=== PATIENT | female | born 1985 | race American Indian/Alaskan Native ===

== ENCOUNTER 2020-07-14 10:40 | Inpatient (IN) | payer MEDICAID ==
[2020-07-14] MEDS ORDERED: MAGNESIUM SULFATE 4 GM/100 ML BAG IV SCH (12:30)
[2020-07-14] MEDS ORDERED: ACETAMINOPHEN 325 MG TAB PO PRN (12:38)
--- NOTE | 2020-07-14 12:46 | History and Physical Report ---
History of Present Illness Date of examination: 07/14/20 (Sent from office.) Date of admission: 07/14/2020 Chief complaint: Was sent from office d/t oligo History of present illness: Pt was admitted to [facility] on 07/09 d/t elevated blood pressures. She was given steroids (dose #1 on 07/09 and #2 on 07/10), magnesium infusion and then transferred to [facility]. Received a call from Dr. Can at [facility] on 07/11 regarding the patient being discharged from their facility. She was transferred there d/t her blood pressures being elevated. Dr. Can is recommending BPP's to start at 32 weeks, and growth scans with dopplers every 3 weeks d/t IUGR. At today's office visit her BEN was noted to be 4.6 so she was sent to the hospital for observation. EDC Confirmation: 09/05/2020 Gestational Age: 32.4 weeks Past History : 3 Term Births: 0 Premature Births: 0 Living Children: 0 Para: 0 Mult. Births: 0 Prev : 0 Prev. attempt? 0 Aborta: 2 Elect. Ab: 2 Spont. Ab: 0 Ectopics: 0 # 1 Delivery date: 2005 Delivery type: EAB Comments: D&C # 2 Delivery date: 2013 Delivery type: EAB Comments: medical Risk Factors: Smoked Tobacco Use: Never smoker Smokeless Tobacco Use: Never Passive smoke exposure: no HIV high-risk behavior: no Caffeine use: 0 drinks per day Alcohol use: no Exercise: yes Times per week: 2 Type of Exercise: walking Seatbelt use: preg-camp head counselor % Dietary Counseling: pn yes PAP Smear History: Date of Last PAP Smear: 01/23/2020 Results: normal Past Medical History: Reviewed history from 01/20/2018 and no changes required: Hypertension - Labetalol since 100 mg BID Past Surgical History: Reviewed history from 01/20/2018 and no changes required: Sebaceous cyst removed from Head (2012) benign x2 Family History Summary: Brother - Has Family History of Diabetes - Entered On: 04/29/2020 Father - Has Family History of CVA or Stroke - Entered On: 04/29/2020 General Comments - FH: Paternal aunt leukemia Social History: Reviewed history from 01/20/2018 and no changes required: Patient is single Smoking History: Patient has never smoked. Past Medical History Abnormal PAP: negative SUMANTH Exposure: negative Infertility: negative Uterine Anomaly: negative Uterine Surgery (not C/S): negative Other Gynecologic Problems: negative Social Hx: Patient is single Smoking History: Patient has never smoked. Infection History Hx of STD: gonorrhea HIV Risk Eval: no Hepatitis B Risk Eval: low risk Personal hx. of genital herpes: yes Rash, Viral, or Febrile illness since last LMP? no Varicella/Chicken Pox Status: Previous Disease TB Risk: no Genetic History Congenital Heart Defect: Mom: no Dad: no Carlitos Disease: Mom: no Dad: no Thalassemia Mom: no Dad: no Neural Tube Defect Mom: no Dad: no Down's Syndrome Mom: no Dad: no Ismael-Sachs Mom: no Dad: no Sickle Cell Disease/Trait Mom: no Dad: no Hemophilia Mom: no Dad: no Muscular Dystrophy Mom: no Dad: no Cystic Fibrosis Mom: no Dad: no Wright Chorea Mom: no Dad: no Mental Retardation Mom: no Dad: no Fragile X Mom: no Dad: no Other Genetic/Chromosomal Disorder Mom: no Dad: no Child w/other defect Mom: no Dad: no Enviromental Exposures Enviromental Exposures Reviewed Xray Exposure: no Medication, drug, or alcohol use since LMP: no Chemical/Other Exposure: no Exposure to Cat Liter: no Hx of Parvovirus (Fifth Disease): no Occupational Exposure to Children: none Comments: personal care worker Current Allergies (reviewed today): No known allergies Past History Past Medical History: hypertension Past Surgical History: other (Sebaceous cyst reomved X2 benign) Family/Genetic History: cancer Social history: no significant social history - Obstetrical History Expected Date of Delivery: 09/05/20 Actual Gestation: 32 Week(s) 4 Day(s) : 3 Para: 0 Hx # Term Pregnancies: 0 Number of Pregnancies: 0 Spontaneous Abortions: 0 Induced : 2 Number of Living Children: 0 Medications and Allergies Allergies Allergy/AdvReac Type Severity Reaction Status Date / Time No Known Allergies Allergy Verified 07/14/20 11:47 Home Medications Medication Instructions Recorded Confirmed Last Taken Type Aspirin [Adult Aspirin] 81 mg PO DAILY 07/14/20 07/14/20 07/11/20 09:00 History Labetalol HCl [Labetalol 300mg TAB] 300 mg PO BID 02/07/14/20 07/14/20 10:45 History One Daily Tablet 1 tab PO DAILY 07/14/20 07/14/20 07/14/20 08:30 History Procardia Xl 60 mg PO DAILY 07/14/20 07/14/20 07/14/20 10:45 History Active Meds: Active Medications Acetaminophen (Acetaminophen 325 Mg Tab) 1,000 mg PO Q6H PRN PRN Reason: Pain MILD(1-3)/Fever >100.5/VELAZQUEZ Al Hydrox/Mg Hydrox/Simethicone (Alum-Mag Hydroxide-Simethicone 452-528-18oy/5ml Oral Liqd 30 Ml) 30 ml PO Q6H PRN PRN Reason: Indigestion Betamethasone Acet/Betameth SodPhos (Betamet Acet/Betamet Na Ph 6 Mg/Ml Inj 5 Ml Mdv) 12 mg IM Q24H HUMA Stop: 07/15/20 13:01 Calcium Gluconate (Calcium Gluconate 1000 Mg/10 Ml Inj) 1,000 mg IV ONCE PRN PRN Reason: magnesium toxicity Diphenhydramine HCl (Diphenhydramine 25 Mg Cap) 25 mg PO Q6H PRN PRN Reason: Itching Docusate Sodium (Docusate Sodium 100 Mg Cap) 100 mg PO Q12H PRN PRN Reason: Constipation Lactated Ringer's (Lactated Ringers) 1,000 mls @ 125 mls/hr IV DIRECT HUMA Magnesium Sulfate (Magnesium Sulfate 4gm/100ml) 4 gm in 100 mls @ 300 mls/hr IV ONCE HUMA Stop: 07/14/20 14:00 Magnesium Sulfate (Magnesium Sulfate 40gm/1000ml) 40 gm in 1,000 mls @ 50 mls/hr IV DIRECT HUMA Multivitamins/Iron/Calcium ( [id number]-[id number] Fumarate-Folic Acid Vit Tab) 1 each PO QDAY HUMA Review of Systems All systems: negative - Vital Signs Vital signs: Vital Signs Pulse BP 83 158/107 07/14/20 11:34 07/14/20 11:34 Temp Pulse Resp BP Pulse Ox 97.9 F 84 20 148/96 99 07/14/20 11:47 07/14/20 12:40 07/14/20 11:47 07/14/20 12:33 07/14/20 12:40 Pt denies VELAZQUEZ, blurred vision, spots before her eyes, chest pain, shortness of b reath, upper abdominal pain, ctxs, LOF, and vaginal bleeding. - Physical Exam Breasts: Positive: deferred Cardiovascular: Regular rate Lungs: Positive: Clear to auscultation Abdomen: Positive: normal appearance, soft Uterus: Positive: normal size, normal contour Extremities: Positive: edema Deep Tendon Reflex Grade: Normal +2 - Obstetrical FHR: category 1 Uterine Contraction Monitor Mode: External Uterine Contraction Pattern: Absent Uterine Tone Measurement Phase: Resting (+1 edema to lower extremities) Results Result Diagrams: 07/14/20 13:46 07/14/20 13:46 GBS UNKNOWN Records reviewed from previous OBGYN on 01/2020: O negative, antibody screen negative HIV non reactive Hep B negative VDRL non reactive Rubella immune Assessment and Plan A: 35 y.o. @ 32.4 wks with IUGR, pre eclampsia, and oligohydramnios. - Patient Problems (1) Intrauterine growth restriction (IUGR) affecting care of mother, third trimester, single gestation Current Visit: Yes Status: Acute Plan to address problem: Continuously observe status. BPP ordered for 07/15. (2) Oligohydramnios in third trimester Onset Date: ~07/15/20 Current Visit: Yes Status: Acute Qualifiers: Fetus number: single or unspecified fetus Qualified Code(s): O41.03X0 - Oligohydramnios, third trimester, not applicable or unspecified Plan to address problem: Full BEN ordered for 07/15. (3) Pre-eclampsia affecting , antepartum Onset Date: ~07/09/20 Current Visit: Yes Status: Acute Plan to address problem: Admit to labor and delivery. 24 hour urine ordered. Labetalol 300mg BID. Procardia 60 mg XL daily. BPP ordered for 07/15. Pre eclampsia labs ordered on admission. (4) with 32 completed weeks gestation Current Visit: Yes Status: Acute Plan to address problem: Continuous EFM to monitor status.
[2020-07-14] MEDS ORDERED: MAGNESIUM SULFATE 40GM/1000ML 40 GM/1,000 ML BAG IV SCH (13:00)
[2020-07-14] MEDS ORDERED: CALCIUM GLUCONATE 1000 MG/10 ML INJ IV PRN (13:00)
[2020-07-14] MEDS ORDERED: ACETAMINOPHEN 500 MG TAB PO PRN (13:00)
[2020-07-14] MEDS ORDERED: ALUM-MAG HYDROXIDE-SIMETHICONE 200-200-20MG/5ML ORAL LIQD 30 ML PO PRN (13:00)
[2020-07-14] MEDS ORDERED: BETAMET ACET/BETAMET NA PH 6 MG/ML INJ 5 ML MDV IM SCH (13:00)
[2020-07-14] MEDS ORDERED: LACTATED RINGERS 1,000 ML IV SCH (13:00)
[2020-07-14] MEDS ORDERED: diphenhydrAMINE 25 MG CAP PO PRN (13:00)
[2020-07-14 13:42] LABS: Bilirubin,Urine NEG (Negative); Blood,Urine NEG (Negative); Color,Urine Yellow (Yellow); Mucus,Urine FEW /HPF; Protein,Urine <15 mg/dL mg/dL (Negative); Urobilinogen,Urine < 2.0 mg/dL (<2.0); WBC,Urine < 1.0 /HPF (0.0-6.0)
[2020-07-14 14:28] LABS: Hematocrit 35.2 % (30.3-42.9); Hemoglobin 11.7 gm/dl (10.1-14.3); Mean Corpuscular HGB Conc 33 % (30-34); Mean Corpuscular Volume 80 fl (79-97); Platelet Count 175 K/mm3 (140-440); Red Blood Count 4.42 M/mm3 (3.65-5.03); Red Cell Distribution Width 13.9 % (13.2-15.2)
[2020-07-14 14:46] LABS: Alanine Aminotransferase 18 units/L (7-56); Albumin 3.6 g/dL (3.9-5); Blood Urea Nitrogen 10 mg/dL (7-17); Calcium 8.9 mg/dL (8.4-10.2); Hemolysis Index 7
[2020-07-14 14:49] LABS: BUN/Creatinine Ratio 25; Uric Acid 3.9 mg/dL (3.5-7.6)
--- NOTE | 2020-07-15 08:33 | Progress Note ---
Assessment and Plan Spoke with Dr Banks this AM They will see pt later today. US ordered for this AM BPP, Doppler, BEN. Continue 24hr urine Continue medications as prescribed. Again send ARCHIE to obtain prev records Dr Mckee aware - Patient Problems (1) Intrauterine growth restriction (IUGR) affecting care of mother, third trimester, single gestation Current Visit: Yes Status: Acute Plan to address problem: BPP and Doppler ordered for today (2) Oligohydramnios in third trimester Onset Date: ~07/15/20 Current Visit: Yes Status: Acute Qualifiers: Fetus number: single or unspecified fetus Qualified Code(s): O41.03X0 - Oligohydramnios, third trimester, not applicable or unspecified Plan to address problem: BEN ordered with todays US studies (3) Pre-eclampsia affecting , antepartum Onset Date: ~07/09/20 Current Visit: Yes Status: Acute Plan to address problem: BP 140-120/90-70 Denies VELAZQUEZ, blurred vision, chest pain Subjective - Subjective Date of service: 07/15/20 (No c/o voiced this AM) Principal diagnosis: IUP 32w5d PreE BMZ X 2 MGSO4 Patient reports: movement normal Objective - Vital Signs Vital Signs: Vital Signs - 12hr 07/14/20 07/14/20 07/14/20 20:46 21:17 21:42 Temperature Pulse Rate 80 80 84 Respiratory Rate Blood Pressure 127/81 125/76 126/88 Blood Pressure [Right] 07/14/20 07/14/20 07/14/20 21:44 21:46 22:16 Temperature Pulse Rate 84 89 80 Respiratory Rate Blood Pressure 126/88 128/91 115/67 Blood Pressure [Right] 07/14/20 07/14/20 07/14/20 22:46 23:17 23:41 Temperature 98.4 F Pulse Rate 81 86 Respiratory 16 Rate Blood Pressure 114/77 110/80 Blood Pressure [Right] 07/14/20 07/15/20 07/15/20 23:46 00:16 00:46 Temperature Pulse Rate 86 79 84 Respiratory Rate Blood Pressure 122/84 106/67 109/70 Blood Pressure [Right] 07/15/20 07/15/20 07/15/20 01:16 01:46 02:46 Temperature Pulse Rate 83 86 81 Respiratory Rate Blood Pressure 130/78 125/81 132/91 Blood Pressure [Right] 07/15/20 07/15/20 07/15/20 03:16 03:33 03:46 Temperature 97.5 F L Pulse Rate 84 82 Respiratory Rate Blood Pressure 135/82 129/86 Blood Pressure [Right] 07/15/20 07/15/20 07/15/20 04:16 05:16 05:46 Temperature Pulse Rate 93 H 80 75 Respiratory Rate Blood Pressure 134/77 120/78 126/81 Blood Pressure [Right] 07/15/20 07/15/20 07/15/20 06:16 06:51 07:16 Temperature Pulse Rate 88 83 83 Respiratory Rate Blood Pressure 132/84 119/78 128/83 Blood Pressure [Right] 07/15/20 07/15/20 07/15/20 07:33 07:34 08:16 Temperature 98.6 F Pulse Rate 75 75 93 H Respiratory 16 Rate Blood Pressure 124/80 148/90 Blood Pressure 124/80 [Right] - Exam Breasts: deferred Cardiovascular: Regular rate Lungs: Clear to auscultation Abdomen: Present: normal appearance, soft. Absent: distention, tenderness Uterus: Present: normal FHR: auscultation normal, category 1 Uterine Contraction Monitor Mode: External Uterine Contraction Pattern: Absent Uterine Tone Measurement Phase: Resting Extremities: edema Deep Tendon Reflex Grade: Normal +2 - Labs Labs: Abnormal Labs 07/14/20 07/14/20 07/14/20 13:46 13:46 13:46 MCH 27 L Sodium 135 L Carbon Dioxide 21 L Creatinine 0.4 L 0.4 L Albumin 3.6 L Laboratory Results - last 24 hr 07/14/20 07/14/20 07/14/20 13:46 13:46 13:46 WBC 7.6 RBC 4.42 Hgb 11.7 Hct 35.2 MCV 80 MCH 27 L MCHC 33 RDW 13.9 Plt Count 175 Sodium 135 L Potassium 3.8 Chloride 102.3 Carbon Dioxide 21 L Anion Gap 16 BUN 10 Creatinine 0.4 L 0.4 L Estimated GFR > 60 > 60 BUN/Creatinine Ratio 25 Glucose 79 Uric Acid 3.9 Calcium 8.9 Magnesium 1.80 Total Bilirubin < 0.20 AST 23 ALT 18 Alkaline Phosphatase 112 Total Protein 7.1 Albumin 3.6 L Albumin/Globulin Ratio 1.0 Urine Color Urine Turbidity Urine pH Ur Specific [place] Urine Protein Urine Glucose (UA) Urine Ketones Urine Blood Urine Nitrite Urine Bilirubin Urine Urobilinogen Ur Leukocyte Esterase Urine WBC (Auto) Urine RBC (Auto) U Epithel Cells (Auto) Urine Mucus Syphilis IgG Antibody Blood Type Antibody Screen 07/14/20 07/14/20 07/14/20 13:46 13:59 Unknown WBC RBC Hgb Hct MCV MCH MCHC RDW Plt Count Sodium Potassium Chloride Carbon Dioxide Anion Gap BUN Creatinine Estimated GFR BUN/Creatinine Ratio Glucose Uric Acid Calcium Magnesium Total Bilirubin AST ALT Alkaline Phosphatase Total Protein Albumin Albumin/Globulin Ratio Urine Color Yellow Urine Turbidity Clear Urine pH 6.0 Ur Specific [place] 1.015 Urine Protein <15 mg/dl Urine Glucose (UA) Neg Urine Ketones Neg Urine Blood Neg Urine Nitrite Neg Urine Bilirubin Neg Urine Urobilinogen < 2.0 Ur Leukocyte Esterase Neg Urine WBC (Auto) < 1.0 Urine RBC (Auto) 1.0 U Epithel Cells (Auto) 3.0 Urine Mucus Few Syphilis IgG Antibody Nonreactive Blood Type O POSITIVE Antibody Screen Negative
[2020-07-15] MEDS: NIFEdipine XL 60 MG TAB PO SCH (10:14)
[2020-07-15] MEDS: ASPIRIN EC 81 MG TAB PO SCH (10:14)
[2020-07-15] MEDS: PRENATAL VIT27-FE FUMARATE-FOLIC ACID VIT TAB PO SCH (10:14)
--- NOTE | 2020-07-15 12:53 | Event Note ---
Date: 07/15/20 32.4 weeks with history of CHTN and IUGR, now with questionable superimposed preeclampsia and oligohydramnios. Patient seen and evaluated. Formal AMFM consultation in patient's hard chart to follow.
--- NOTE | 2020-07-15 13:37 | Ultrasound Report ---
ULTRASOUND OB VELOCIMETRY UMBILICAL ARTERY, ultrasound biophysical profile, Ultrasound OB limited HISTORY: IUGR TECHNIQUE: Transabdominal ultrasound with color and spectral Doppler imaging COMPARISON: None FINDINGS: Single intrauterine Position: Breech Amniotic fluid index: 5.2 cm 3 segments of the umbilical cord were evaluated. heart rate measures 132 bpm. The spectral wave forms are normal and persistent. Average S/D ratio measures: 3.2 Average resistive index measures: 0.7 Biophysical Profile: breathing movements: 2 movements:2 posture and tone:2 Qualitative amniotic fluid volume: 2 Impression: 1. Single intrauterine . Low amniotic fluid index. 2. Biophysical profile is 8 of 8 3. Normal umbilical cord Doppler. Signer Name: Te Lam MD Signed: 07/15/2020 1:32 PM Workstation Name: [id number]
[2020-07-15 19:35] LABS: Patient Weight,Urine 220.5 lbs
--- NOTE | 2020-07-15 20:15 | Event Note ---
Date: 07/15/20 24hr protein is 200mg/24hr. Does not appear to have superimposed preE at this time. Will obtain repeat BEN in the am.Today was 5.2 compared to 4.6cm in the office yesterday.
[2020-07-15] MEDS: ONDANSETRON 4 MG/2 ML INJ IV PRN (23:30)
--- NOTE | 2020-07-16 05:15 | Progress Note ---
Assessment and Plan Pt sleeping No c/o voiced Cont POC Close observation - Patient Problems (1) Intrauterine growth restriction (IUGR) affecting care of mother, third trimester, single gestation Onset Date: ~07/16/20 Current Visit: Yes Status: Acute Plan to address problem: Doppler wnl Cat 1 EFM strip (2) Oligohydramnios in third trimester Onset Date: ~07/15/20 Current Visit: Yes Status: Acute Qualifiers: Fetus number: single or unspecified fetus Qualified Code(s): O41.03X0 - Oligohydramnios, third trimester, not applicable or unspecified Plan to address problem: repeat BEN this AM ordered (3) Pre-eclampsia affecting , antepartum Onset Date: ~07/09/20 Current Visit: Yes Status: Acute Plan to address problem: BP 130-120/80-70 Denies VELAZQUEZ, blurred vision, chest pain Subjective - Subjective Date of service: 07/16/20 (no complaints) Principal diagnosis: IUP 32w6d PreE BMZ X 2 MGSO4 Patient reports: movement normal Objective - Vital Signs Vital Signs: Vital Signs - 12hr 07/15/20 07/15/20 07/15/20 17:05 17:35 18:35 Temperature Pulse Rate 96 H 90 86 Respiratory Rate Blood Pressure 139/86 125/74 119/68 Blood Pressure [Right] 07/15/20 07/15/20 07/15/20 19:06 19:35 19:42 Temperature 98.5 F Pulse Rate 86 88 88 Respiratory 12 Rate Blood Pressure 128/78 142/87 Blood Pressure 135/87 [Right] 07/15/20 07/15/20 07/15/20 19:44 20:05 20:35 Temperature Pulse Rate 83 86 87 Respiratory Rate Blood Pressure 135/87 132/87 135/85 Blood Pressure [Right] 07/15/20 07/15/20 07/15/20 21:05 21:35 22:00 Temperature Pulse Rate 83 84 84 Respiratory Rate Blood Pressure 142/87 139/93 Blood Pressure [Right] 07/15/20 07/15/20 07/15/20 22:05 22:35 23:35 Temperature Pulse Rate 81 78 81 Respiratory Rate Blood Pressure 129/79 132/88 141/103 Blood Pressure [Right] 07/16/20 07/16/20 07/16/20 00:05 00:35 01:05 Temperature Pulse Rate 85 80 81 Respiratory Rate Blood Pressure 112/69 120/77 124/79 Blood Pressure [Right] 07/16/20 07/16/20 07/16/20 01:35 02:05 02:35 Temperature Pulse Rate 86 75 80 Respiratory Rate Blood Pressure 123/76 130/78 125/82 Blood Pressure [Right] 07/16/20 07/16/20 07/16/20 03:05 03:35 04:05 Temperature Pulse Rate 88 83 85 Respiratory Rate Blood Pressure 135/69 123/74 134/74 Blood Pressure [Right] 07/16/20 04:35 Temperature Pulse Rate 78 Respiratory Rate Blood Pressure 130/80 Blood Pressure [Right] - Exam Breasts: deferred Cardiovascular: Regular rate Lungs: Normal air movement Abdomen: Present: normal appearance, soft. Absent: distention, tenderness Uterus: Present: normal FHR: auscultation normal, category 1 Uterine Contraction Monitor Mode: External Extremities: edema Deep Tendon Reflex Grade: Normal +2 - Labs Labs: Abnormal Labs 07/14/20 07/14/20 07/14/20 13:46 13:46 13:46 MCH 27 L Sodium 135 L Carbon Dioxide 21 L Creatinine 0.4 L 0.4 L Albumin 3.6 L Urine Creatinine 07/14/20 07/15/20 16:12 07:42 MCH Sodium Carbon Dioxide Creatinine Albumin Urine Creatinine 87.0 H 87.0 H Laboratory Results - last 24 hr 07/14/20 07/15/20 07/15/20 16:12 07:42 09:20 Urine Total Volume 2000 2000 Urine Creatinine 87.0 H 87.0 H Height (in) 63.0 Weight (lb) 220.5 Creatinine Clearance 259 Ur Total Protein 24 Hr 200.00 Urine Total Protein 10 Coronavirus (PCR) Negative
[2020-07-16] MEDS: PRENATAL VIT27-FE FUMARATE-FOLIC ACID VIT TAB PO SCH (10:15)
[2020-07-16] MEDS: ASPIRIN EC 81 MG TAB PO SCH (10:17)
[2020-07-16] MEDS: NIFEdipine XL 60 MG TAB PO SCH (10:17)
--- NOTE | 2020-07-16 10:32 | Ultrasound Report ---
US OB limited INDICATION: low BEN. TECHNIQUE: Limited OB ultrasound obtained COMPARISON: 07/15/2020 FINDINGS: Amniotic fluid index is low, measuring 4.1 cm. heart rate measures 1 33 bpm. presentation is breech. Signer Name: Juan Lanza MD Signed: 07/16/2020 10:27 AM Workstation Name: [id number]
--- NOTE | 2020-07-16 13:49 | Event Note ---
Date: 07/16/20 (Spoke with pt @ BEN and hosp stay) Pt resting Reviewed with pt the BEN result 4.1 and that the baby's position is breech. Made pt aware that she is here for the duration. BP, oligo, malpresentation. All questions addressed.
--- NOTE | 2020-07-16 15:45 | Progress Note ---
Assessment and Plan Outside hospital records ([facility]) were reviewed. Preeclampsia workup during that admission was negative Impression: -32.5 weeks. -IUGR diagnosed on 07/07 at [facility] was 3#5, 9%. AC 4%. Steroids completed on 07/08 and 07/09. -CHTN on labetalol 300 mg bid and Procardia 60 mg (superimposed preeclampsia ruled out) -Oligohydramnios. Recommendations: -Inpatient expectant management. -Neonatology consultation. -Continuous EFM. -perform BPP and UA Dopplers twice a week. -Repeat growth on or after 07/21 if undelivered. -continue current BP medication regimen. IV antihypertensive prn severe range BPs Subjective - Subjective Date of service: 07/16/20 Principal diagnosis: IUP 32w6d PreE BMZ X 2 MGSO4 Interval history: The patient reports she is doing well and has no complaints. Denies headaches, visual changes, chest pain, SOB or RUQ pain. Good movement. Patient reports: movement normal Objective - Vital Signs Vital Signs: Vital Signs - 12hr 07/16/20 07/16/20 07/16/20 04:05 04:35 05:07 Temperature Pulse Rate 85 78 83 Blood Pressure 134/74 130/80 132/85 07/16/20 07/16/20 07/16/20 05:35 07:35 08:00 Temperature 99.1 F Pulse Rate 77 82 Blood Pressure 128/81 142/90 07/16/20 07/16/20 07/16/20 08:05 08:20 08:21 Temperature Pulse Rate 86 76 81 Blood Pressure 128/89 138/95 140/100 07/16/20 07/16/20 07/16/20 08:35 09:05 09:35 Temperature Pulse Rate 82 77 76 Blood Pressure 125/88 139/82 146/99 07/16/20 07/16/20 07/16/20 10:15 10:16 10:23 Temperature Pulse Rate 99 H 99 H 83 Blood Pressure 170/92 170/92 158/94 07/16/20 07/16/20 07/16/20 10:35 11:35 12:35 Temperature Pulse Rate 81 78 90 Blood Pressure 164/99 143/91 138/102 07/16/20 07/16/20 07/16/20 13:05 13:35 14:05 Temperature Pulse Rate 90 88 92 H Blood Pressure 130/67 125/75 136/80 07/16/20 07/16/20 07/16/20 14:35 15:05 15:35 Temperature Pulse Rate 87 96 H 86 Blood Pressure 135/76 123/91 129/80 - Exam Abdomen: Present: soft - Labs Labs: Abnormal Labs 07/14/20 07/14/20 07/14/20 13:46 13:46 13:46 MCH 27 L Sodium 135 L Carbon Dioxide 21 L Creatinine 0.4 L 0.4 L Albumin 3.6 L Urine Creatinine 07/14/20 07/15/20 16:12 07:42 MCH Sodium Carbon Dioxide Creatinine Albumin Urine Creatinine 87.0 H 87.0 H Laboratory Results - last 24 hr 07/14/20 07/15/20 16:12 07:42 Urine Total Volume 2000 2000 Urine Creatinine 87.0 H 87.0 H Height (in) 63.0 Weight (lb) 220.5 Creatinine Clearance 259 Ur Total Protein 24 Hr 200.00 Urine Total Protein 10
--- NOTE | 2020-07-16 20:45 | Consultation ---
Consult Note - Parent Education I met with parent(s) and discussed the following:: Need for NICU admission, Poss ible need for intubation and surfactant or other resp support, Temperature regulation, Head ultrasounds to evaluate IVH, Possible need for IV fluids/TPN and IV antibiotics, Possible need for umbilical lines, Importance of providing breast milk & encouraged pumping aft delivery, Slow feeding advancement and monitoring of tolerance. NG/OG feeds, Need to monitor for jaundice, Data for survival & survival without significant co-morbidities Parent(s) demonstrated understanding of all the information:: Yes Assessment and Plan - Assessment Gestation:: 32 Estimated Weight: 3lbs Baby's gender: Female Baby's name: unsure Additional Comment: 35 yo A2 mother who was sent from office for decreased BEN. Mother was recently admitted to [facility] for elevated BPs and received steroids x2 and magnesium. Patient was then transferred to [place] and released from there. Currently problem list includes breech, IUGR, oligohydramnios, preEclampsia. No PNR are available, syphillis negative upon arrival. - Plan Plan: Will attend delivery Please call NICU with questions
--- NOTE | 2020-07-17 07:28 | Progress Note ---
Assessment and Plan 33+0 weeks. -IUGR diagnosed on 07/07 at [facility] was 3#5, 9%. AC 4%. Steroids completed on 07/08 and 07/09. -CHTN on labetalol 300 mg bid and Procardia 60 mg (superimposed preeclampsia ruled out) -Oligohydramnios. [facility]'s Recommendations: -Inpatient expectant management. -Neonatology consultation - done 07/16/2020 -Continuous EFM. -perform BPP and UA Dopplers twice a week -done 07/16/2020, ordered 07/19/2020 & 07/21/2020 -Repeat growth on or after 07/21 if undelivered - ordered 07/21/2020 -continue current BP medication regimen. IV antihypertensive prn severe range BPs - Patient Problems (1) 33 weeks gestation of Current Visit: Yes Status: Acute (2) Intrauterine growth restriction (IUGR) affecting care of mother, third trimester, single gestation Onset Date: ~07/16/20 Current Visit: Yes Status: Acute (3) Oligohydramnios in third trimester Onset Date: ~07/15/20 Current Visit: Yes Status: Acute Qualifiers: Fetus number: single or unspecified fetus Qualified Code(s): O41.03X0 - Oligohydramnios, third trimester, not applicable or unspecified Subjective - Subjective Date of service: 07/17/20 Principal diagnosis: IUP 33w0d PreE BMZ X 2, MGSO4 Patient reports: movement normal, no new complaints, no loss of fluid, no vaginal bleeding, no contractions Objective - Vital Signs Vital Signs: Vital Signs - 12hr 07/16/20 07/16/20 07/16/20 19:35 20:05 21:05 Temperature Pulse Rate 90 88 91 H Respiratory Rate Blood Pressure 141/96 138/89 137/79 07/16/20 07/16/20 07/16/20 21:35 21:44 21:55 Temperature 98.8 F Pulse Rate 83 84 Respiratory 19 Rate Blood Pressure 137/84 143/82 07/16/20 07/16/20 07/17/20 21:56 22:58 00:39 Temperature Pulse Rate 84 95 H 83 Respiratory Rate Blood Pressure 143/82 136/88 145/100 07/17/20 07/17/20 07/17/20 00:57 02:57 03:14 Temperature 98.7 F Pulse Rate 83 88 Respiratory 18 Rate Blood Pressure 141/93 139/90 07/17/20 07/17/20 07/17/20 04:00 05:01 06:01 Temperature Pulse Rate 77 80 87 Respiratory Rate Blood Pressure 139/87 143/91 136/83 07/17/20 07:00 Temperature Pulse Rate 82 Respiratory Rate Blood Pressure 127/86 - Exam Breasts: normal Cardiovascular: Regular rate Lungs: Normal air movement Abdomen: Present: normal appearance, soft Vulva: both: normal Uterus: Present: normal, fundal height above umbilicus FHR: auscultation normal, category 1 Uterine Contraction Monitor Mode: External Uterine Contraction Pattern: Absent Uterine Tone Measurement Phase: Resting Extremities: normal Deep Tendon Reflex Grade: Normal +2 - Labs Labs: Abnormal Labs 07/14/20 07/14/20 07/14/20 13:46 13:46 13:46 MCH 27 L Sodium 135 L Carbon Dioxide 21 L Creatinine 0.4 L 0.4 L Albumin 3.6 L Urine Creatinine 07/14/20 07/15/20 16:12 07:42 MCH Sodium Carbon Dioxide Creatinine Albumin Urine Creatinine 87.0 H 87.0 H
--- NOTE | 2020-07-17 07:51 | Progress Note ---
Assessment and Plan A: 1. IUP at 32 6/7 weeks gestation s/p BMZ 07/08- 2.IUGR diagnosed on 07/07 at [facility] was 3#5, 9%. AC 4%. 3.CHTN with exacerbation ruled out for preeclampsia Currently on Labetalol 300 mg bid and Procardia 60 mg 4.Oligohydramnios. no evidence of ROM Recommendations: 1. Monitor for distress, worsening maternal HTN 2. Twice weekly BPP /Doppler/4 quadrant BEN 3. Growth q2 weeks, on or after 07/21 4. Continuous monitoring 5. Continue current antihypertensive regimen, titrate to maintain BP 120-160/80-105mmhg 6. Delivery at 34 0/7 -37 6/7 Subjective - Subjective Date of service: 07/17/20 Principal diagnosis: IUP 32w6d PreE BMZ X 2, MGSO4 Interval history: No complaints Patient reports: movement normal Objective - Vital Signs Vital Signs: Vital Signs - 12hr 07/16/20 07/16/20 07/16/20 20:05 21:05 21:35 Temperature Pulse Rate 88 91 H 83 Respiratory Rate Blood Pressure 138/89 137/79 137/84 07/16/20 07/16/20 07/16/20 21:44 21:55 21:56 Temperature 98.8 F Pulse Rate 84 84 Respiratory 19 Rate Blood Pressure 143/82 143/82 07/16/20 07/17/20 07/17/20 22:58 00:39 00:57 Temperature Pulse Rate 95 H 83 83 Respiratory Rate Blood Pressure 136/88 145/100 141/93 07/17/20 07/17/20 07/17/20 02:57 03:14 04:00 Temperature 98.7 F Pulse Rate 88 77 Respiratory 18 Rate Blood Pressure 139/90 139/87 07/17/20 07/17/20 07/17/20 05:01 06:01 07:00 Temperature Pulse Rate 80 87 82 Respiratory Rate Blood Pressure 143/91 136/83 127/86 - Exam Narrative Exam: laying in bed Abdomen: Present: normal appearance FHR: category 1 - Labs Labs: Abnormal Labs 07/14/20 07/14/20 07/14/20 13:46 13:46 13:46 MCH 27 L Sodium 135 L Carbon Dioxide 21 L Creatinine 0.4 L 0.4 L Albumin 3.6 L Urine Creatinine 07/14/20 07/15/20 16:12 07:42 MCH Sodium Carbon Dioxide Creatinine Albumin Urine Creatinine 87.0 H 87.0 H
[2020-07-17] MEDS: ONDANSETRON 4 MG/2 ML INJ IV PRN (09:34)
[2020-07-17] MEDS: PRENATAL VIT27-FE FUMARATE-FOLIC ACID VIT TAB PO SCH (10:42)
[2020-07-17] MEDS: NIFEdipine XL 60 MG TAB PO SCH (10:43)
[2020-07-17] MEDS: ASPIRIN EC 81 MG TAB PO SCH (10:43)
--- NOTE | 2020-07-18 07:25 | Progress Note ---
<AYANNA LRIA - Last Filed: 07/18/20 07:37> Assessment and Plan - Patient Problems (1) Intrauterine growth restriction (IUGR) affecting care of mother, third trimester, single gestation Onset Date: ~07/16/20 Current Visit: Yes Status: Acute Plan to address problem: s/p BMZ 07/08- IUGR diagnosed on 07/07 at [facility] was 3#5, 9%. AC 4%. Monitor for distress Growth q2 weeks, on or after 3/1 Continuous monitoring Delivery at 34 0/7 -37 6/7 (2) Oligohydramnios in third trimester Onset Date: ~07/15/20 Current Visit: Yes Status: Acute Qualifiers: Fetus number: single or unspecified fetus Qualified Code(s): O41.03X0 - Oligohydramnios, third trimester, not applicable or unspecified Plan to address problem: No evidence of ROM 4 quadrant BEN with growth and Dopplers (3) with 32 completed weeks gestation Current Visit: Yes Status: Acute Plan to address problem: Continue to monitor status with EFM. (4) Chronic hypertension affecting Current Visit: Yes Status: Acute Plan to address problem: CHTN with exacerbation ruled out for preeclampsia Currently on Labetalol 300 mg bid and Procardia 60 mg Monitor for distress, worsening maternal HTN Twice weekly BPP /Doppler/4 quadrant BEN Growth q2 weeks, on or after 3/1 Continuous monitoring Continue current antihypertensive regimen, titrate to maintain BP 120-160/80-105mmhg Delivery at 34 0/7 -37 6/7 Subjective - Subjective Date of service: 07/18/20 (Pt doing well) Principal diagnosis: IUP 33w0d PreE BMZ X 2, MGSO4 Patient reports: movement normal, no new complaints, no loss of fluid, no vaginal bleeding, no contractions Objective - Vital Signs Vital Signs: Vital Signs - 12hr 07/17/20 07/17/20 07/17/20 20:00 20:02 21:01 Temperature 98.9 F Pulse Rate 86 86 96 H Respiratory 16 Rate Blood Pressure 134/69 147/98 Blood Pressure 134/69 [Right] O2 Sat by Pulse 100 Oximetry 07/17/20 07/17/20 07/17/20 22:01 22:06 22:07 Temperature Pulse Rate 80 80 80 Respiratory Rate Blood Pressure 128/84 128/84 128/84 Blood Pressure [Right] O2 Sat by Pulse Oximetry 07/17/20 07/18/20 07/18/20 23:01 00:00 00:01 Temperature 98 F Pulse Rate 88 86 86 Respiratory 16 Rate Blood Pressure 140/94 123/74 Blood Pressure 123/74 [Right] O2 Sat by Pulse 98 Oximetry 07/18/20 07/18/20 07/18/20 02:01 03:01 03:06 Temperature Pulse Rate 78 70 77 Respiratory Rate Blood Pressure 141/93 142/102 131/94 Blood Pressure [Right] O2 Sat by Pulse Oximetry 07/18/20 07/18/20 07/18/20 04:00 05:01 07:00 Temperature 97.8 F Pulse Rate 75 86 83 Respiratory 16 Rate Blood Pressure 132/84 155/91 136/99 Blood Pressure 132/84 [Right] O2 Sat by Pulse 98 Oximetry - Exam Narrative Exam: Pt denies VELAZQUEZ, blurred vision, spots before her eyes, chest pain, shortness of breath, upper abdominal pain, LOF, ctxs, and vaginal bleeding. Discussed with patient that if any of these symptoms occur to notify the RN immediately. Pt verbalized understanding. Blood pressure ranges are 120-140's/80-100's. Breasts: deferred Cardiovascular: Normal S1, Normal S2 Lungs: Clear to auscultation Abdomen: Present: normal appearance, soft Uterus: Present: normal FHR: category 1 Uterine Contraction Pattern: Absent Extremities: normal Deep Tendon Reflex Grade: Normal +2 - Labs Labs: Abnormal Labs 07/14/20 07/14/20 07/14/20 13:46 13:46 13:46 MCH 27 L Sodium 135 L Carbon Dioxide 21 L Creatinine 0.4 L 0.4 L Albumin 3.6 L Urine Creatinine 07/14/20 07/15/20 16:12 07:42 MCH Sodium Carbon Dioxide Creatinine Albumin Urine Creatinine 87.0 H 87.0 H <WEI VARELA - Last Filed: 07/18/20 18:06> Assessment and Plan - Patient Problems (1) 33 weeks gestation of Current Visit: Yes Status: Acute (2) Chronic hypertension affecting Current Visit: Yes Status: Acute Plan to address problem: with exacerbation, currently on Labetalol 300mg tid and Procardia XL 60mg qd. BP's seem to be controlled when medications given at the appropriate time. Continue same for now (3) Intrauterine growth restriction (IUGR) affecting care of mother, third trimester, single gestation Onset Date: ~07/16/20 Current Visit: Yes Status: Acute (4) Oligohydramnios in third trimester Onset Date: ~07/15/20 Current Visit: Yes Status: Acute Qualifiers: Fetus number: single or unspecified fetus Qualified Code(s): O41.03X0 - Oligohydramnios, third trimester, not applicable or unspecified Objective - Vital Signs Vital Signs: Vital Signs - 12hr 07/18/20 07/18/20 07/18/20 07:00 08:01 08:46 Temperature 98.9 F Pulse Rate 83 83 83 Respiratory 20 Rate Blood Pressure 136/99 148/101 132/91 07/18/20 07/18/20 07/18/20 09:01 09:19 09:27 Temperature Pulse Rate 77 85 85 Respiratory Rate Blood Pressure 153/111 156/106 156/106 07/18/20 07/18/20 07/18/20 09:32 09:41 10:13 Temperature Pulse Rate 92 H 92 H 85 Respiratory Rate Blood Pressure 156/103 156/103 148/90 07/18/20 07/18/20 07/18/20 11:12 11:43 12:00 Temperature 98.7 F Pulse Rate 85 89 Respiratory 18 Rate Blood Pressure 138/97 129/96 07/18/20 07/18/20 07/18/20 12:42 13:14 13:43 Temperature Pulse Rate 83 88 84 Respiratory Rate Blood Pressure 110/72 127/81 115/68 07/18/20 07/18/20 07/18/20 14:12 14:20 14:21 Temperature Pulse Rate 86 86 86 Respiratory Rate Blood Pressure 121/77 121/77 121/77 07/18/20 07/18/20 07/18/20 14:42 15:13 15:43 Temperature Pulse Rate 90 93 H Respiratory Rate Blood Pressure 123/80 123/95 117/66 07/18/20 07/18/20 07/18/20 16:13 16:42 17:12 Temperature Pulse Rate 90 92 H 88 Respiratory Rate Blood Pressure 119/68 115/66 125/78 - Labs Labs: Abnormal Labs 07/14/20 07/14/20 07/14/20 13:46 13:46 13:46 MCH 27 L Sodium 135 L Carbon Dioxide 21 L Creatinine 0.4 L 0.4 L Albumin 3.6 L Urine Creatinine 07/14/20 07/15/20 07/18/20 16:12 07:42 15:12 MCH 27 L Sodium Carbon Dioxide Creatinine Albumin Urine Creatinine 87.0 H 87.0 H Laboratory Results - last 24 hr 07/18/20 07/18/20 15:12 15:12 WBC 6.7 RBC 4.32 Hgb 11.6 Hct 34.4 MCV 80 MCH 27 L MCHC 34 RDW 13.9 Plt Count 172 Blood Type O POSITIVE Antibody Screen Negative
[2020-07-18] MEDS: ASPIRIN EC 81 MG TAB PO SCH (10:14)
[2020-07-18] MEDS: NIFEdipine XL 60 MG TAB PO SCH (10:14)
[2020-07-18] MEDS: PRENATAL VIT27-FE FUMARATE-FOLIC ACID VIT TAB PO SCH (10:15)
[2020-07-18 15:33] LABS: Hematocrit 34.4 % (30.3-42.9); Hemoglobin 11.6 gm/dl (10.1-14.3); Mean Corpuscular HGB Conc 34 % (30-34); Mean Corpuscular Volume 80 fl (79-97); Platelet Count 172 K/mm3 (140-440); Red Blood Count 4.32 M/mm3 (3.65-5.03); Red Cell Distribution Width 13.9 % (13.2-15.2)
[2020-07-18] MEDS: ONDANSETRON 4 MG/2 ML INJ IV PRN (18:00)
--- NOTE | 2020-07-19 08:04 | Progress Note ---
Assessment and Plan - Patient Problems (1) Intrauterine growth restriction (IUGR) affecting care of mother, third trimester, single gestation Onset Date: ~07/16/20 Current Visit: Yes Status: Acute Plan to address problem: s/p BMZ 07/08-17 IUGR diagnosed on 07/07 at [facility] was 3#5, 9%. AC 4%. Monitor for distress Growth q2 weeks, on or after 3/1 Continuous monitoring Delivery at 34 0/7 -37 6/7 (2) Oligohydramnios in third trimester Onset Date: ~07/15/20 Current Visit: Yes Status: Acute Qualifiers: Fetus number: single or unspecified fetus Qualified Code(s): O41.03X0 - Oligohydramnios, third trimester, not applicable or unspecified Plan to address problem: No evidence of ROM 4 quadrant BEN with growth and Dopplers (3) with 32 completed weeks gestation Current Visit: Yes Status: Acute Plan to address problem: Continue to monitor status with EFM. (4) Chronic hypertension affecting Current Visit: Yes Status: Acute Plan to address problem: CHTN with exacerbation ruled out for preeclampsia Currently on Labetalol 300 mg TID and Procardia 60 mg Monitor for distress, worsening maternal HTN Twice weekly BPP /Doppler/4 quadrant BEN Growth q2 weeks, on or after 3/1 Continuous monitoring Continue current antihypertensive regimen, titrate to maintain BP 120-160/80-105mmhg Delivery at 34 0/7 -37 6/7 Subjective - Subjective Date of service: 07/19/20 (Pt doing well. ) Principal diagnosis: IUP 33w1d, cHTN excerbation, BMZ X 2, MGSO4 Patient reports: movement normal, no new complaints, no loss of fluid, no vaginal bleeding, no contractions Objective - Vital Signs Vital Signs: Vital Signs - 12hr 07/18/20 07/18/20 07/18/20 20:13 20:42 21:13 Temperature Pulse Rate 85 86 82 Respiratory Rate Blood Pressure 129/80 129/87 134/83 07/18/20 07/18/20 07/18/20 21:50 21:51 21:52 Temperature Pulse Rate 86 86 86 Respiratory Rate Blood Pressure 137/86 137/83 137/86 07/18/20 07/18/20 07/18/20 22:12 22:42 23:12 Temperature Pulse Rate 82 86 90 Respiratory Rate Blood Pressure 130/87 135/85 139/94 07/18/20 07/19/20 07/19/20 23:42 00:03 00:12 Temperature 97.7 F Pulse Rate 89 85 Respiratory 20 Rate Blood Pressure 144/90 135/87 07/19/20 07/19/20 07/19/20 01:12 01:42 02:12 Temperature Pulse Rate 82 88 85 Respiratory Rate Blood Pressure 131/81 121/81 133/86 07/19/20 07/19/20 07/19/20 02:42 03:12 03:42 Temperature Pulse Rate 83 82 84 Respiratory Rate Blood Pressure 140/86 140/89 133/88 07/19/20 07/19/20 07/19/20 04:12 04:42 05:13 Temperature Pulse Rate 82 87 83 Respiratory Rate Blood Pressure 133/82 135/88 154/96 07/19/20 07/19/20 07/19/20 05:21 05:27 05:42 Temperature Pulse Rate 87 87 84 Respiratory Rate Blood Pressure 132/90 132/90 126/86 07/19/20 07/19/20 07/19/20 06:13 06:42 07:12 Temperature Pulse Rate 88 95 H 82 Respiratory Rate Blood Pressure 155/92 124/84 132/86 07/19/20 07:43 Temperature Pulse Rate 83 Respiratory Rate Blood Pressure 136/90 - Exam Narrative Exam: Pt denies VELAZQUEZ, blurred vision, spots before her eyes, shortness of breath, chest pain, and upper abdominal pain. We discussed if should any of these symptoms occur, to notify the RN immediately. Blood pressure ranges have been 120-150's/70-90's. Breasts: deferred Cardiovascular: Normal S1, Normal S2 Lungs: Clear to auscultation Abdomen: Present: normal appearance, soft Uterus: Present: normal FHR: category 1 Uterine Contraction Monitor Mode: External Uterine Contraction Pattern: Absent Extremities: normal Deep Tendon Reflex Grade: Normal +2 - Labs Labs: Abnormal Labs 07/14/20 07/14/20 07/14/20 13:46 13:46 13:46 MCH 27 L Sodium 135 L Carbon Dioxide 21 L Creatinine 0.4 L 0.4 L Albumin 3.6 L Urine Creatinine 07/14/20 07/15/20 07/18/20 16:12 07:42 15:12 MCH 27 L Sodium Carbon Dioxide Creatinine Albumin Urine Creatinine 87.0 H 87.0 H Laboratory Results - last 24 hr 07/18/20 07/18/20 15:12 15:12 WBC 6.7 RBC 4.32 Hgb 11.6 Hct 34.4 MCV 80 MCH 27 L MCHC 34 RDW 13.9 Plt Count 172 Blood Type O POSITIVE Antibody Screen Negative
[2020-07-19] MEDS: PRENATAL VIT27-FE FUMARATE-FOLIC ACID VIT TAB PO SCH (10:02)
[2020-07-19] MEDS: NIFEdipine XL 60 MG TAB PO SCH (10:03)
[2020-07-19] MEDS: ASPIRIN EC 81 MG TAB PO SCH (10:03)
--- NOTE | 2020-07-19 12:42 | Ultrasound Report ---
US OB BPP WO NON-STRESS, US OB LIMITED INDICATION / CLINICAL INFORMATION: BPP/BEN. COMPARISON: Recent priors were reviewed. FINDINGS: breathing movement = 2 Gross body movement = 2 tone = 2 Qualitative amniotic fluid volume = 2 Total biophysical score = 8/8 Amniotic fluid index is 6.4 cm. Presentation is Breech. heart rate is 131 beats per minute. IMPRESSION: 1. biophysical profile = 12/28 2. Persistent decreased BEN (6.4 cm today). 3. lie is currently breech. Signer Name: Mark Kim MD Signed: 07/19/2020 12:38 PM Workstation Name: [email or web address]
--- NOTE | 2020-07-19 17:04 | Progress Note ---
Assessment and Plan 1, IUP at 33 1/7 weeks' 2. Essential hypertension with superimposed preeclampsia 3. IUGR 4. Decreased BEN 1. Umbilica;l artery doppler velocimetry 2. Continue expectant management, twice weekly BPP/dopplers, PIH labs, EFW at next BPP/dopplers and q 2 weeks Subjective - Subjective Date of service: 07/19/20 Principal diagnosis: IUP 33w1d, cHTN excerbation, BMZ X 2, MGSO4 Interval history: Feeling well, fetus active Patient reports: movement normal, no new complaints, no loss of fluid, no vaginal bleeding, no contractions Objective - Vital Signs Vital Signs: Vital Signs - 12hr 07/19/20 07/19/20 07/19/20 05:13 05:21 05:27 Temperature Pulse Rate 83 87 87 Blood Pressure 154/96 132/90 132/90 07/19/20 07/19/20 07/19/20 05:42 06:13 06:42 Temperature Pulse Rate 84 88 95 H Blood Pressure 126/86 155/92 124/84 07/19/20 07/19/20 07/19/20 07:12 07:43 08:15 Temperature 98.1 F Pulse Rate 82 83 Blood Pressure 132/86 136/90 07/19/20 07/19/20 07/19/20 08:42 09:14 09:42 Temperature Pulse Rate 86 84 85 Blood Pressure 121/75 126/81 134/92 07/19/20 07/19/20 07/19/20 10:12 10:42 11:00 Temperature 98.4 F Pulse Rate 85 82 Blood Pressure 138/89 138/93 07/19/20 07/19/20 07/19/20 11:12 11:43 12:12 Temperature Pulse Rate 84 78 82 Blood Pressure 138/95 127/79 142/99 07/19/20 07/19/20 07/19/20 12:42 13:08 13:13 Temperature Pulse Rate 89 87 89 Blood Pressure 146/105 126/90 138/93 07/19/20 07/19/20 07/19/20 13:42 14:13 14:48 Temperature Pulse Rate 88 95 H 95 H Blood Pressure 133/88 155/96 136/89 07/19/20 07/19/20 07/19/20 14:49 14:50 15:00 Temperature 97.9 F Pulse Rate 95 H Blood Pressure 136/89 136/89 07/19/20 07/19/20 07/19/20 15:12 15:42 16:12 Temperature Pulse Rate 86 85 88 Blood Pressure 136/97 134/90 141/100 07/19/20 07/19/20 16:24 16:42 Temperature Pulse Rate 85 85 Blood Pressure 111/76 112/79 - Exam Narrative Exam: Abd soft, nontender; FHT's reactive; U/S [07/19/20]: Breech; BEN 6.4 cm; BPP 8/8 - Labs Labs: Abnormal Labs 07/14/20 07/14/20 07/14/20 13:46 13:46 13:46 MCH 27 L Sodium 135 L Carbon Dioxide 21 L Creatinine 0.4 L 0.4 L Albumin 3.6 L Urine Creatinine 07/14/20 07/15/20 07/18/20 16:12 07:42 15:12 MCH 27 L Sodium Carbon Dioxide Creatinine Albumin Urine Creatinine 87.0 H 87.0 H Laboratory Results - last 24 hr 07/18/20 15:12 Blood Type O POSITIVE Antibody Screen Negative
[2020-07-19] MEDS: ONDANSETRON 4 MG/2 ML INJ IV PRN (23:56)
[2020-07-20] MEDS: ASPIRIN EC 81 MG TAB PO SCH (09:42)
[2020-07-20] MEDS: PRENATAL VIT27-FE FUMARATE-FOLIC ACID VIT TAB PO SCH (09:42)
[2020-07-20] MEDS: NIFEdipine XL 60 MG TAB PO SCH (09:43)
--- NOTE | 2020-07-20 10:03 | Progress Note ---
Assessment and Plan - Patient Problems (1) Intrauterine growth restriction (IUGR) affecting care of mother, third trimester, single gestation Onset Date: ~07/16/20 Current Visit: Yes Status: Acute Plan to address problem: s/p BMZ 07/08-17 IUGR diagnosed on 07/07 at [facility] was 3#5, 9%. AC 4%. Monitor for distress Growth q2 weeks: ordered for 07/21. Continuous monitoring Delivery at 34 0/7 -37 6/7 (2) Oligohydramnios in third trimester Onset Date: ~07/15/20 Current Visit: Yes Status: Acute Qualifiers: Fetus number: single or unspecified fetus Qualified Code(s): O41.03X0 - Oligohydramnios, third trimester, not applicable or unspecified Plan to address problem: Pt continues to deny LOF. Pt to have 4 quadrant BEN with growth scan on 07/21. (3) with 32 completed weeks gestation Current Visit: Yes Status: Acute (4) Chronic hypertension affecting Current Visit: Yes Status: Acute Plan to address problem: Currently on Labetalol 300 mg TID and Procardia 60 mg daily. Monitor for distress, worsening maternal HTN, s/sx of pre eclampsia. Twice weekly BPP /Doppler/4 quadrant BEN Growth q2 weeks: ordered for 07/21. Continuous monitoring Continue current antihypertensive regimen, titrate to maintain BP 120-160/80-105mmhg Delivery at 34 0/7 -37 6/7 Subjective - Subjective Date of service: 07/20/20 Principal diagnosis: IUP 33w1d, cHTN, Pre E, BMZ X 2, MGSO4 Patient reports: movement normal, no new complaints, no loss of fluid, no vaginal bleeding, no contractions Objective - Vital Signs Vital Signs: Vital Signs - 12hr 07/19/20 07/19/20 07/19/20 22:13 22:17 22:18 Temperature Pulse Rate 76 76 76 Respiratory Rate Blood Pressure 149/105 133/89 133/89 Blood Pressure [Left] 07/19/20 07/19/20 07/19/20 22:43 23:44 23:45 Temperature 98.4 F Pulse Rate 78 75 75 Respiratory 18 Rate Blood Pressure 159/104 121/85 Blood Pressure 121/85 [Left] 07/20/20 07/20/20 07/20/20 00:12 00:42 01:13 Temperature Pulse Rate 73 81 83 Respiratory Rate Blood Pressure 128/84 126/79 127/85 Blood Pressure [Left] 07/20/20 07/20/20 07/20/20 01:42 02:12 02:42 Temperature Pulse Rate 89 81 81 Respiratory Rate Blood Pressure 119/81 114/71 123/82 Blood Pressure [Left] 07/20/20 07/20/20 07/20/20 03:12 03:42 04:13 Temperature Pulse Rate 83 78 75 Respiratory Rate Blood Pressure 122/88 126/92 133/92 Blood Pressure [Left] 07/20/20 07/20/20 07/20/20 04:43 05:43 05:54 Temperature Pulse Rate 78 84 84 Respiratory Rate Blood Pressure 125/93 121/83 121/83 Blood Pressure [Left] 07/20/20 07/20/20 07/20/20 05:55 06:12 06:42 Temperature 98.8 F Pulse Rate 84 81 84 Respiratory 18 Rate Blood Pressure 132/99 142/92 Blood Pressure [Left] 07/20/20 07/20/20 07/20/20 07:12 07:42 07:51 Temperature 98.8 F Pulse Rate 89 81 Respiratory 18 Rate Blood Pressure 129/86 114/75 Blood Pressure [Left] 07/20/20 07/20/20 08:12 09:42 Temperature Pulse Rate 86 86 Respiratory Rate Blood Pressure 120/70 127/88 Blood Pressure [Left] - Exam Narrative Exam: Pt denies VELAZQUEZ, blurred vision, spots before her eyes, chest pain, shortness of breath, upper abdominal pain, ctxs, LOF, and vaginal bleeding. Instructed the patient that is any of these symptoms develop to let the RN know immediately. Blood pressure ranges are 114-130's/80-90's. Pt states that she is still thinking about a tubal ligation: salpingectomy. We signed the consent today, but I also informed patient that she is free to change her mind regarding tubal ligation. Pt verbalized understanding. Breasts: deferred Cardiovascular: Regular rate Lungs: Normal air movement Abdomen: Present: normal appearance, soft Uterus: Present: normal FHR: category 1 Uterine Contraction Monitor Mode: External Uterine Contraction Pattern: Absent Extremities: normal - Labs Labs: Abnormal Labs 02/22/21 02/22/21 02/22/21 13:46 13:46 13:46 MCH 27 L Sodium 135 L Carbon Dioxide 21 L Creatinine 0.4 L 0.4 L Albumin 3.6 L Urine Creatinine 07/14/20 07/15/20 07/18/20 16:12 07:42 15:12 MCH 27 L Sodium Carbon Dioxide Creatinine Albumin Urine Creatinine 87.0 H 87.0 H
--- NOTE | 2020-07-20 11:32 | Ultrasound Report ---
ULTRASOUND OB VELOCIMETRY UMBILICAL ARTERY HISTORY: Intrauterine growth restriction. Preeclampsia. TECHNIQUE: Transabdominal ultrasound with color and spectral Doppler imaging COMPARISON: Ultrasound OB Velocimetry of the umbilical artery, 07/15/2020 FINDINGS: 3 segments of the umbilical cord were evaluated. heart rate measures 138 bpm. The spectral wave forms are normal and persistent. Average S/D ratio measures: 3.0 Average resistive index measures: 0.67 IMPRESSION: 1. No sonographic evidence of umbilical cord abnormality. Signer Name: Tiff Sheridan MD Signed: 07/20/2020 11:27 AM Workstation Name: [id number]
--- NOTE | 2020-07-21 06:28 | Progress Note ---
Assessment and Plan Pt w/o complaint this AM. States she slept well. Reports good FM, denies LOF,VB. Pt aware of labs to be drawn and US to be done today. Continue POC as noted. - Patient Problems (1) Intrauterine growth restriction (IUGR) affecting care of mother, third trimester, single gestation Onset Date: ~07/16/20 Current Visit: Yes Status: Acute Plan to address problem: s/p BMZ 07/08-17 IUGR diagnosed on 07/07 at [facility] was 3#5, 9%. AC 4%. Monitor for distress Growth q2 weeks: ordered for 07/21. Continuous monitoring Delivery at 34 0/7 -37 6/7 (2) Oligohydramnios in third trimester Onset Date: ~07/15/20 Current Visit: Yes Status: Acute Qualifiers: Fetus number: single or unspecified fetus Qualified Code(s): O41.03X0 - Oligohydramnios, third trimester, not applicable or unspecified Plan to address problem: Pt reports good FM Pt continues to deny LOF. Pt to have 4 quadrant BEN with growth scan on 07/21. (3) Chronic hypertension affecting Onset Date: ~07/21/20 Current Visit: Yes Status: Acute Plan to address problem: BP 130-115/80-60 Continue Labetalol 300mg po TID and Procardia XL QD PT denies any s/sx of preE Labs ordered for today. Subjective - Subjective Date of service: 07/21/20 (Restful night) Principal diagnosis: IUP 33w3d(EDC 09-05-20), cHTN, BMZ X 2, Labetalol 300mg TID, ProcardiaXL QD Patient reports: movement normal, no new complaints, no loss of fluid, no vaginal bleeding, no contractions Objective - Vital Signs Vital Signs: Vital Signs - 12hr 07/20/20 07/20/20 07/20/20 18:50 19:20 19:50 Temperature Pulse Rate 86 90 81 Respiratory Rate Blood Pressure 124/71 117/75 134/85 Blood Pressure [Left] 07/20/20 07/20/20 07/20/20 20:50 21:20 21:46 Temperature 98.4 F Pulse Rate 77 77 77 Respiratory 20 Rate Blood Pressure 125/82 143/92 Blood Pressure 117/80 [Left] 07/20/20 07/20/20 07/20/20 21:51 22:05 22:20 Temperature Pulse Rate 84 84 83 Respiratory Rate Blood Pressure 117/80 117/80 139/90 Blood Pressure [Left] 07/20/20 07/20/20 07/21/20 22:50 23:20 00:20 Temperature Pulse Rate 80 84 91 H Respiratory Rate Blood Pressure 117/74 133/83 116/77 Blood Pressure [Left] 07/21/20 07/21/20 07/21/20 00:50 01:20 01:50 Temperature Pulse Rate 85 80 88 Respiratory Rate Blood Pressure 127/81 105/67 107/71 Blood Pressure [Left] 07/21/20 07/21/20 07/21/20 02:20 02:50 03:20 Temperature Pulse Rate 83 86 85 Respiratory Rate Blood Pressure 100/62 113/88 123/90 Blood Pressure [Left] 07/21/20 07/21/20 07/21/20 03:50 04:20 04:50 Temperature Pulse Rate 81 82 87 Respiratory Rate Blood Pressure 111/72 105/64 122/70 Blood Pressure [Left] 07/21/20 07/21/20 07/21/20 05:21 05:50 06:12 Temperature Pulse Rate 86 85 85 Respiratory Rate Blood Pressure 113/75 130/75 130/75 Blood Pressure [Left] 07/21/20 07/21/20 07/21/20 06:13 06:14 06:20 Temperature 98.6 F Pulse Rate 85 75 80 Respiratory 18 Rate Blood Pressure 130/75 122/70 Blood Pressure [Left] - Exam Breasts: deferred Cardiovascular: Regular rate Lungs: Clear to auscultation Abdomen: Present: normal appearance, soft. Absent: distention, tenderness Vulva: both: normal Uterus: Present: normal FHR: auscultation normal, category 1 Uterine Contraction Monitor Mode: External Uterine Contraction Pattern: Absent Uterine Tone Measurement Phase: Resting Extremities: normal Deep Tendon Reflex Grade: Normal +2 - Labs Labs: Abnormal Labs 07/14/20 07/14/20 07/14/20 13:46 13:46 13:46 MCH 27 L Sodium 135 L Carbon Dioxide 21 L Creatinine 0.4 L 0.4 L Albumin 3.6 L Urine Creatinine 07/14/20 07/15/20 07/18/20 16:12 07:42 15:12 MCH 27 L Sodium Carbon Dioxide Creatinine Albumin Urine Creatinine 87.0 H 87.0 H
[2020-07-21 07:41] LABS: Hematocrit 32.9 % (30.3-42.9); Hemoglobin 11.1 gm/dl (10.1-14.3); Mean Corpuscular HGB Conc 34 % (30-34); Mean Corpuscular Volume 78 fl (79-97); Platelet Count 149 K/mm3 (140-440)
[2020-07-21 08:04] LABS: Alanine Aminotransferase 20 units/L (7-56); Uric Acid 4.3 mg/dL (3.5-7.6)
[2020-07-21] MEDS: ASPIRIN EC 81 MG TAB PO SCH (10:57)
[2020-07-21] MEDS: NIFEdipine XL 60 MG TAB PO SCH (10:57)
[2020-07-21] MEDS: PRENATAL VIT27-FE FUMARATE-FOLIC ACID VIT TAB PO SCH (10:57)
--- NOTE | 2020-07-21 11:01 | Ultrasound Report ---
ULTRASOUND OBSTETRIC LIMITED ULTRASOUND BIOPHYSICAL PROFILE ULTRASOUND OB VELOCIMETRY INDICATION / CLINICAL INFORMATION: BPP, BEN, DOPPLERS, AND GROWTH. COMPARISON: Limited OB ultrasound from 07/19/2020. FINDINGS: BREATHING MOVEMENT = 2 GROSS BODY MOVEMENT = 2 TONE = 2 QUALITATIVE AMNIOTIC FLUID VOLUME = 2 TOTAL BIOPHYSICAL SCORE = 8/8 AMNIOTIC FLUID INDEX (cm) = 8.5 PRESENTATION: Breech. HEART RATE (beats per minute): 138 3 segments of the umbilical cord were evaluated. heart rate measures 138 bpm. The spectral wave forms are normal and persistent. Average S/D ratio measures: 2.5 Average resistive index measures: 0.6 MEASUREMENTS: - Biparietal Diameter = 7.4 cm = 29.3 weeks.days - Head Circumference = 29.5 cm = 32.4 weeks.days - Abdominal Circumference = 25.1 cm = 29.2 weeks.days - Femur Length = 6.0 cm = 31.1 weeks.days - Estimated Weight (in grams, if calculated): 1535 Average ultrasound age is 30 weeks 4 days. IMPRESSION: 1. Biophysical Score = 8/8 2. Unremarkable umbilical cord Doppler. 3. measurements as above. Signer Name: Talha Flannery MD Signed: 07/21/2020 10:57 AM Workstation Name: [id number]
[2020-07-21 12:20] LABS: Bacteria,Urine 1+ /HPF (Negative); Bilirubin,Urine NEG (Negative); Blood,Urine NEG (Negative); Color,Urine Yellow (Yellow); Mucus,Urine FEW /HPF; Protein,Urine <15 mg/dL mg/dL (Negative); RBC,Urine < 1.0 /HPF (0.0-6.0); Urobilinogen,Urine < 2.0 mg/dL (<2.0)
--- NOTE | 2020-07-21 12:52 | Progress Note ---
Assessment and Plan A: 1. IUP at 33 3/7 weeks gestation s/p BMZ 07/08- 2.IUGR diagnosed on 07/07 at [facility] was 3#5, 9%. AC 4%. 3lb 6 oz 1% (07/21/20) 3.CHTN with exacerbation ruled out for preeclampsia Currently on Labetalol 300 mg bid and Procardia 60 mg 4.Oligohydramnios. resolved Recommendations: 1. Monitor for distress, worsening maternal HTN 2. Twice weekly BPP /Doppler/4 quadrant BEN 3. Growth q2 weeks on or after 08/04 4. Continuous monitoring 5. Continue current antihypertensive regimen, titrate to maintain BP 120-160/80-105mmhg 6. Delivery at 34 0/7 -37 6/7 Subjective - Subjective Date of service: 07/21/20 Principal diagnosis: IUP 33w3d([facility] 09-05-20), cHTN, BMZ X 2, Labetalol 300mg TID, ProcardiaXL QD Interval history: No complaints Patient reports: movement normal, no new complaints, no loss of fluid, no vaginal bleeding, no contractions Objective - Vital Signs Vital Signs: Vital Signs - 12hr 07/21/20 07/21/20 07/21/20 00:50 01:20 01:50 Temperature Pulse Rate 85 80 88 Respiratory Rate Blood Pressure 127/81 105/67 107/71 Blood Pressure [Left] 07/21/20 07/21/20 07/21/20 02:20 02:50 03:20 Temperature Pulse Rate 83 86 85 Respiratory Rate Blood Pressure 100/62 113/88 123/90 Blood Pressure [Left] 07/21/20 07/21/20 07/21/20 03:50 04:20 04:50 Temperature Pulse Rate 81 82 87 Respiratory Rate Blood Pressure 111/72 105/64 122/70 Blood Pressure [Left] 07/21/20 07/21/20 07/21/20 05:21 05:50 06:12 Temperature Pulse Rate 86 85 85 Respiratory Rate Blood Pressure 113/75 130/75 130/75 Blood Pressure [Left] 07/21/20 07/21/20 07/21/20 06:13 06:14 06:20 Temperature 98.6 F Pulse Rate 85 75 80 Respiratory 18 Rate Blood Pressure 130/75 122/70 Blood Pressure [Left] 07/21/20 07/21/20 07/21/20 06:50 07:20 07:25 Temperature Pulse Rate 87 84 81 Respiratory Rate Blood Pressure 120/56 133/91 135/62 Blood Pressure [Left] 07/21/20 07/21/20 07/21/20 07:26 07:50 08:20 Temperature 98.6 F Pulse Rate 81 84 79 Respiratory 18 Rate Blood Pressure 137/94 137/97 Blood Pressure 135/62 [Left] 07/21/20 07/21/20 07/21/20 08:50 09:21 09:50 Temperature Pulse Rate 90 89 88 Respiratory Rate Blood Pressure 136/91 120/76 136/100 Blood Pressure [Left] 07/21/20 07/21/20 07/21/20 11:05 11:20 11:50 Temperature Pulse Rate 83 83 83 Respiratory Rate Blood Pressure 117/84 126/91 99/61 Blood Pressure [Left] 07/21/20 07/21/20 12:20 12:21 Temperature 98.5 F Pulse Rate 79 82 Respiratory 18 Rate Blood Pressure 113/70 114/75 Blood Pressure 114/75 [Left] - Exam Narrative Exam: laying in bed Abdomen: Present: soft FHR: other (discontinuous monitor adjusted) Extremities: normal - Labs Labs: Abnormal Labs 07/14/20 07/14/20 07/14/20 13:46 13:46 13:46 MCV MCH 27 L Sodium 135 L Carbon Dioxide 21 L Creatinine 0.4 L 0.4 L Albumin 3.6 L Urine Creatinine 07/14/20 07/15/20 07/18/20 16:12 07:42 15:12 MCV MCH 27 L Sodium Carbon Dioxide Creatinine Albumin Urine Creatinine 87.0 H 87.0 H 07/21/20 07/21/20 07:26 07:26 MCV 78 L MCH 26 L Sodium Carbon Dioxide Creatinine 0.4 L Albumin Urine Creatinine Laboratory Results - last 24 hr 07/21/20 07/21/20 07/21/20 06:20 07:26 07:26 WBC 6.0 RBC 4.20 Hgb 11.1 Hct 32.9 MCV 78 L MCH 26 L MCHC 34 RDW 14.0 Plt Count 149 Creatinine 0.4 L Estimated GFR > 60 Uric Acid 4.3 AST 20 ALT 20 Lactate Dehydrogenase 157 Urine Color Yellow Urine Turbidity Clear Urine pH 6.0 Ur Specific [place] 1.018 Urine Protein <15 mg/dl Urine Glucose (UA) Neg Urine Ketones Tr Urine Blood Neg Urine Nitrite Neg Urine Bilirubin Neg Urine Urobilinogen < 2.0 Ur Leukocyte Esterase Neg Urine WBC (Auto) 1.0 Urine RBC (Auto) < 1.0 U Epithel Cells (Auto) 4.0 Urine Bacteria (Auto) 1+ Urine Mucus Few - Results US- obstetric: other (unable to load report, valve setter worksheet reviewed EFW 3lb 6 1% BEN 8.5 breech FHR 138bpm BPP 8/8 , normal UA doppler)
--- NOTE | 2020-07-21 16:39 | Event Note ---
Date: 07/21/20 agree with bench assembler electrical exam and note. Will continue with plan as outlined by [facility] as follows: A: 1. IUP at 33 3/7 weeks gestation s/p BMZ 07/08- 2.IUGR diagnosed on 07/07 at [facility] was 3#5, 9%. AC 4%. 3lb 6 oz 1% (07/21/20) 3.CHTN with exacerbation ruled out for preeclampsia Currently on Labetalol 300 mg bid and Procardia 60 mg 4.Oligohydramnios. resolved Recommendations: 1. Monitor for distress, worsening maternal HTN 2. Twice weekly BPP /Doppler/4 quadrant BEN 3. Growth q2 weeks on or after 08/04 4. Continuous monitoring 5. Continue current antihypertensive regimen, titrate to maintain BP 120-160/80-105mmhg 6. Delivery at 34 0/7 -37 6/7
[2020-07-22] MEDS: ONDANSETRON 4 MG/2 ML INJ IV PRN (07:18)
--- NOTE | 2020-07-22 07:28 | Progress Note ---
Assessment and Plan Pt c/o some nausea this morning, reports + FM. denies VELAZQUEZ/visual changes/ epigastric pain. reviewed u/s results from yesterday with patient, BEN now NL but growth is 1st%. Pt desires a short walk outside today. encouraged to continue hydration and diet. discussed decision on timing of delivery with be based on baby's status and pt's condition. pt and s/o verbalizes understanding. All questions addressed. ASsessment: 1. IUP at 33 4/7 weeks gestation s/p BMZ 07/08- 2.IUGR diagnosed on 07/07 at [facility] was 3#5, 9%. AC 4%. Most recent efw: 3lb 6 oz 1% (07/21/20) 3.CHTN with exacerbation ruled out for preeclampsia Currently on Labetalol 300 mg TID and Procardia 60 mg QD 4.Oligohydramnios. resolved, BEN 8.5 on 07/21 Recommendations per [facility]: 1. Monitor for distress, worsening maternal HTN 2. Twice weekly BPP /Doppler/4 quadrant BEN 3. Growth q2 weeks on or after 08/04 4. Continuous monitoring 5. Continue current antihypertensive regimen, titrate to maintain BP 120-160/80-105mmhg 6. Delivery at 34 0/7 -37 6/7 - Patient Problems (1) 33 weeks gestation of Current Visit: Yes Status: Acute (2) Intrauterine growth restriction (IUGR) affecting care of mother, third trimester, single gestation Onset Date: ~07/16/20 Current Visit: Yes Status: Acute (3) Oligohydramnios in third trimester Onset Date: ~07/15/20 Current Visit: Yes Status: Resolved Qualifiers: Fetus number: single or unspecified fetus Qualified Code(s): O41.03X0 - Oligohydramnios, third trimester, not applicable or unspecified (4) Chronic hypertension affecting Onset Date: ~07/21/20 Current Visit: Yes Status: Acute Subjective - Subjective Date of service: 07/22/20 Principal diagnosis: IUP 33w4d([facility] 09-05-20); CHTN, IUGR Patient reports: movement normal, no new complaints, no loss of fluid, no vaginal bleeding, no contractions Objective - Vital Signs Vital Signs: Vital Signs - 12hr 07/21/20 07/21/20 07/21/20 20:23 21:57 21:58 Temperature Pulse Rate 80 81 81 Respiratory Rate Blood Pressure 136/103 124/72 124/72 07/21/20 07/22/20 07/22/20 23:00 00:00 01:00 Temperature 98.4 F Pulse Rate 90 86 91 H Respiratory 16 Rate Blood Pressure 109/70 111/67 119/76 07/22/20 07/22/20 07/22/20 02:00 03:00 04:00 Temperature 98 F Pulse Rate 81 86 81 Respiratory 16 Rate Blood Pressure 132/87 138/92 134/95 07/22/20 07/22/20 05:00 07:00 Temperature Pulse Rate 78 85 Respiratory Rate Blood Pressure 124/70 136/95 - Exam Breasts: normal Cardiovascular: Regular rate Lungs: Normal air movement Abdomen: Present: normal appearance, soft FHR: category 1 Uterine Contraction Monitor Mode: External Uterine Contraction Pattern: Absent Uterine Tone Measurement Phase: Resting Extremities: normal Deep Tendon Reflex Grade: Normal +2 - Labs Labs: Abnormal Labs 07/14/20 07/14/20 07/14/20 13:46 13:46 13:46 MCV MCH 27 L Sodium 135 L Carbon Dioxide 21 L Creatinine 0.4 L 0.4 L Albumin 3.6 L Urine Creatinine 07/14/20 07/15/20 07/18/20 16:12 07:42 15:12 MCV MCH 27 L Sodium Carbon Dioxide Creatinine Albumin Urine Creatinine 87.0 H 87.0 H 07/21/20 07/21/20 07:26 07:26 MCV 78 L MCH 26 L Sodium Carbon Dioxide Creatinine 0.4 L Albumin Urine Creatinine Laboratory Results - last 24 hr 07/21/20 07/21/20 07/21/20 06:20 07:26 07:26 WBC 6.0 RBC 4.20 Hgb 11.1 Hct 32.9 MCV 78 L MCH 26 L MCHC 34 RDW 14.0 Plt Count 149 Creatinine 0.4 L Estimated GFR > 60 Uric Acid 4.3 AST 20 ALT 20 Lactate Dehydrogenase 157 Urine Color Yellow Urine Turbidity Clear Urine pH 6.0 Ur Specific [place] 1.018 Urine Protein <15 mg/dl Urine Glucose (UA) Neg Urine Ketones Tr Urine Blood Neg Urine Nitrite Neg Urine Bilirubin Neg Urine Urobilinogen < 2.0 Ur Leukocyte Esterase Neg Urine WBC (Auto) 1.0 Urine RBC (Auto) < 1.0 U Epithel Cells (Auto) 4.0 Urine Bacteria (Auto) 1+ Urine Mucus Few
[2020-07-22] MEDS: PRENATAL VIT27-FE FUMARATE-FOLIC ACID VIT TAB PO SCH (09:51)
[2020-07-22] MEDS: NIFEdipine XL 60 MG TAB PO SCH (09:52)
[2020-07-22] MEDS: ASPIRIN EC 81 MG TAB PO SCH (09:52)
--- NOTE | 2020-07-22 12:51 | Progress Note ---
Assessment and Plan - Patient Problems (1) 33 weeks gestation of Current Visit: Yes Status: Acute Plan to address problem: s/p ANCS on 07/08 and 07/09 (2) Chronic hypertension affecting Onset Date: ~07/21/20 Current Visit: Yes Status: Acute Plan to address problem: No evidence of preeclampsia. Currently on labetalol 300 mg bid and nifedipine 60 mg daily. (3) Intrauterine growth restriction (IUGR) affecting care of mother, third trimester, single gestation Onset Date: ~07/16/20 Current Visit: Yes Status: Acute Plan to address problem: EFW on 07/21 3#6, 1%. Normal UA Dopplers. Continuous EFM. BPP and UA Dopplers twice a week (Mon and Thurs) Repeat growth on or after 08/04. Delivery is recommended 34.0 and 37.6 weeks. (4) Oligohydramnios in third trimester Onset Date: ~07/15/20 Current Visit: Yes Status: Resolved Qualifiers: Fetus number: single or unspecified fetus Qualified Code(s): O41.03X0 - Oligohydramnios, third trimester, not applicable or unspecified Plan to address problem: Resolved on 07/21 ultrasound. BEN was 8.5 cm. Subjective - Subjective Principal diagnosis: IUP 33w4d([facility] 09-05-20); CHTN, IUGR Patient reports: movement normal, no new complaints, no loss of fluid, no vaginal bleeding, no contractions Objective - Vital Signs Vital Signs: Vital Signs - 12hr 07/22/20 07/22/20 07/22/20 01:00 02:00 03:00 Temperature Pulse Rate 91 H 81 86 Respiratory Rate Blood Pressure 119/76 132/87 138/92 Blood Pressure [Left] 07/22/20 07/22/20 07/22/20 04:00 05:00 07:00 Temperature 98 F Pulse Rate 81 78 85 Respiratory 16 Rate Blood Pressure 134/95 124/70 136/95 Blood Pressure [Left] 07/22/20 07/22/20 07/22/20 07:27 08:00 09:52 Temperature 98.6 F Pulse Rate 78 79 85 Respiratory 18 Rate Blood Pressure 129/95 131/93 115/80 Blood Pressure 129/95 [Left] 07/22/20 07/22/20 07/22/20 09:59 11:00 12:00 Temperature 98.7 F Pulse Rate 88 77 79 Respiratory 18 Rate Blood Pressure 110/79 107/65 Blood Pressure 142/97 [Left] 07/22/20 12:01 Temperature Pulse Rate 79 Respiratory Rate Blood Pressure 142/97 Blood Pressure [Left] - Exam FHR: category 1 - Labs Labs: Abnormal Labs 07/14/20 07/14/20 07/14/20 13:46 13:46 13:46 MCV MCH 27 L Sodium 135 L Carbon Dioxide 21 L Creatinine 0.4 L 0.4 L Albumin 3.6 L Urine Creatinine 07/14/20 07/15/20 07/18/20 16:12 07:42 15:12 MCV MCH 27 L Sodium Carbon Dioxide Creatinine Albumin Urine Creatinine 87.0 H 87.0 H 07/21/20 07/21/20 07:26 07:26 MCV 78 L MCH 26 L Sodium Carbon Dioxide Creatinine 0.4 L Albumin Urine Creatinine - Results US- obstetric: other (Ultrasound on 07/21 shows EFW 3#6, 1%, breech, BEN 8.5)
[2020-07-23] MEDS: ONDANSETRON 4 MG/2 ML INJ IV PRN (00:14)
--- NOTE | 2020-07-23 07:44 | Progress Note ---
Assessment and Plan - Patient Problems (1) Intrauterine growth restriction (IUGR) affecting care of mother, third trimester, single gestation Onset Date: ~07/16/20 Current Visit: Yes Status: Acute Plan to address problem: EFW on 07/21 3#6, 1%. Normal UA Dopplers. Continuous EFM. BPP and UA Dopplers twice a week (Mon and Thurs) Repeat growth on or after 08/04. Delivery is recommended 34.0 and 37.6 weeks. (2) Chronic hypertension affecting Onset Date: ~07/21/20 Current Visit: Yes Status: Acute Plan to address problem: No evidence of preeclampsia. Currently on labetalol 300 mg TID and nifedipine 60 mg daily. (3) 33 weeks gestation of Current Visit: Yes Status: Acute Plan to address problem: s/p ANCS on 07/08 and 07/09 Subjective - Subjective Date of service: 07/23/20 (Pt had some cramping during the night.) Principal diagnosis: IUP 33w5d([facility] 09-05-20); CHTN, IUGR Patient reports: movement normal, no new complaints, no loss of fluid, no vaginal bleeding, no contractions Objective - Vital Signs Vital Signs: Vital Signs - 12hr 07/22/20 07/22/20 07/22/20 19:47 20:00 21:00 Temperature 98.8 F Pulse Rate 82 83 82 Respiratory 16 Rate Blood Pressure 125/91 118/56 119/77 Blood Pressure 125/91 [Left] 07/22/20 07/22/20 07/22/20 22:00 22:22 22:23 Temperature Pulse Rate 86 86 86 Respiratory Rate Blood Pressure 118/92 118/92 118/92 Blood Pressure [Left] 07/22/20 07/22/20 07/23/20 23:23 23:25 00:00 Temperature 98.3 F Pulse Rate 82 82 81 Respiratory 18 Rate Blood Pressure 118/86 118/73 Blood Pressure 118/84 [Left] 07/23/20 07/23/20 07/23/20 01:00 02:00 03:00 Temperature Pulse Rate 82 85 82 Respiratory Rate Blood Pressure 113/78 115/82 117/81 Blood Pressure [Left] 07/23/20 07/23/20 07/23/20 04:00 04:11 06:24 Temperature 97.6 F Pulse Rate 86 93 H Respiratory 16 Rate Blood Pressure 114/83 141/89 Blood Pressure [Left] 07/23/20 07/23/20 07/23/20 06:25 07:01 07:02 Temperature 98.2 F Pulse Rate 93 H 87 Respiratory 16 Rate Blood Pressure 141/89 109/64 Blood Pressure [Left] - Exam Narrative Exam: Pt denies VELAZQUEZ, blurred vision, spots before her eyes, chest pain, shortness of breath, upper abdominal pain, LOF, vaginal bleeding, and ctxs. States that she had some cramping last night, but this AM she does not. We discussed that if any of the above symptoms occur she should tell the RN right away. We also discussed plan of care and she verbalized understanding. Breasts: deferred Cardiovascular: Normal S1, Normal S2 Lungs: Clear to auscultation Abdomen: Present: normal appearance, soft Uterus: Present: normal FHR: category 1 Uterine Contraction Monitor Mode: External Uterine Contraction Pattern: Absent Extremities: edema (trace, generalized) Deep Tendon Reflex Grade: Normal +2 - Labs Labs: Abnormal Labs 07/14/20 07/14/20 07/14/20 13:46 13:46 13:46 MCV MCH 27 L Sodium 135 L Carbon Dioxide 21 L Creatinine 0.4 L 0.4 L Albumin 3.6 L Urine Creatinine 07/14/20 07/15/20 07/18/20 16:12 07:42 15:12 MCV MCH 27 L Sodium Carbon Dioxide Creatinine Albumin Urine Creatinine 87.0 H 87.0 H 07/21/20 07/21/20 07:26 07:26 MCV 78 L MCH 26 L Sodium Carbon Dioxide Creatinine 0.4 L Albumin Urine Creatinine
[2020-07-23] MEDS: ASPIRIN EC 81 MG TAB PO SCH (09:53)
[2020-07-23] MEDS: PRENATAL VIT27-FE FUMARATE-FOLIC ACID VIT TAB PO SCH (09:53)
[2020-07-23] MEDS: NIFEdipine XL 60 MG TAB PO SCH (09:54)
--- NOTE | 2020-07-24 05:19 | Progress Note ---
Assessment and Plan Pt in her own clothes this AM. Stated she just needed to be out of the hospital gown. Pt would also like to go to the garden. Will be OK as long as pt is chaperoned and goes by WC. Limit time to 15-[address] Ryan consulted. - Patient Problems (1) Chronic hypertension affecting Onset Date: ~07/21/20 Current Visit: Yes Status: Acute Plan to address problem: BP 140-130/90-70 Labetalol 300 po TID ProcardiaXL 60mg QD No evidence of superimposed preeclampsia development. Pt denies VELAZQUEZ, blurred vision, chest pain. Dr Ryan consulted (2) Intrauterine growth restriction (IUGR) affecting care of mother, third trimester, single gestation Onset Date: ~07/16/20 Current Visit: Yes Status: Acute Plan to address problem: Pt reports good FM this AM, denies any further cramping or nausea. US evaluation ordered for today. EFW on 07/21 3#6, 1%. Normal UA Dopplers. Continuous EFM. BPP and UA Dopplers twice a week (Mon and Thurs) Repeat growth on or after 08/04. Delivery is recommended 34.0 and 37.6 weeks. Subjective - Subjective Date of service: 07/24/20 (pt asking to walk to the Garden) Principal diagnosis: IUP 33w6d([facility] 09-05-20); CHTN, IUGR Patient reports: movement normal, no new complaints, no loss of fluid, no vaginal bleeding, no contractions Objective - Vital Signs Vital Signs: Vital Signs - 12hr 07/23/20 07/23/20 07/23/20 18:00 19:00 19:09 Temperature Pulse Rate 86 82 83 Blood Pressure 123/93 135/97 131/89 07/23/20 07/23/20 07/23/20 19:15 20:00 21:00 Temperature 98.0 F Pulse Rate 83 83 Blood Pressure 135/92 136/95 07/23/20 07/23/20 07/23/20 22:00 22:01 22:02 Temperature Pulse Rate 82 82 82 Blood Pressure 132/92 132/92 132/92 07/23/20 07/24/20 07/24/20 22:15 00:00 01:00 Temperature 98.3 F Pulse Rate 78 85 Blood Pressure 116/81 108/64 07/24/20 07/24/20 07/24/20 02:00 02:45 03:01 Temperature 98.3 F Pulse Rate 75 89 Blood Pressure 124/92 112/76 07/24/20 07/24/20 04:00 05:00 Temperature Pulse Rate 85 94 H Blood Pressure 141/95 131/78 - Exam Breasts: deferred Cardiovascular: Regular rate Lungs: Normal air movement Abdomen: Present: normal appearance, soft. Absent: distention, tenderness Uterus: Present: normal FHR: auscultation normal, category 1 Uterine Contraction Monitor Mode: External Uterine Contraction Pattern: Absent Uterine Tone Measurement Phase: Resting Extremities: normal Deep Tendon Reflex Grade: Normal +2 - Labs Labs: Abnormal Labs 07/14/20 07/14/20 07/14/20 13:46 13:46 13:46 MCV MCH 27 L Sodium 135 L Carbon Dioxide 21 L Creatinine 0.4 L 0.4 L Albumin 3.6 L Urine Creatinine 07/14/20 07/15/20 07/18/20 16:12 07:42 15:12 MCV MCH 27 L Sodium Carbon Dioxide Creatinine Albumin Urine Creatinine 87.0 H 87.0 H 07/21/20 07/21/20 07:26 07:26 MCV 78 L MCH 26 L Sodium Carbon Dioxide Creatinine 0.4 L Albumin Urine Creatinine
[2020-07-24] MEDS: PRENATAL VIT27-FE FUMARATE-FOLIC ACID VIT TAB PO SCH (10:19)
[2020-07-24] MEDS: ASPIRIN EC 81 MG TAB PO SCH (10:19)
[2020-07-24] MEDS: NIFEdipine XL 60 MG TAB PO SCH (10:19)
--- NOTE | 2020-07-24 13:51 | Progress Note ---
Assessment and Plan Impression: -33.6 weeks. -IUGR diagnosed on 07/07 at [facility] was 3#5, 9%. AC 4%. Steroids completed on 07/08 and 07/09. -CHTN on labetalol 300 mg bid and Procardia 60 mg (superimposed preeclampsia ruled out) -Oligohydramnios- recolved Recommendations: -Continue expectant management. -perform BPP and UA Dopplers twice a week (due today) -Repeat growth on or after 08/04 -continue current BP medication regimen. IV antihypertensive prn severe range BPs -Delivery at 34 0/7 -37 6/7 A: 1. IUP at 33 3/7 weeks gestation s/p BMZ 07/08- 2.IUGR diagnosed on 07/07 at [facility] was 3#5, 9%. AC 4%. 3lb 6 oz 1% (07/21/20) 3.CHTN with exacerbation ruled out for preeclampsia Currently on Labetalol 300 mg bid and Procardia 60 mg 4.Oligohydramnios. resolved Recommendations: 1. Monitor for distress, worsening maternal HTN 2. Twice weekly BPP /Doppler/4 quadrant BEN 3. Growth q2 weeks on or after 08/04 4. Continuous monitoring 5. Continue current antihypertensive regimen, titrate to maintain BP 120-160/80-105mmhg 6. Delivery at 34 0/7 -37 6/7 Subjective - Subjective Principal diagnosis: IUP 33w6d(EDC 09-05-20); CHTN, IUGR Interval history: The patient reports she is doing well and has no complaints. Denies headaches, visual changes, chest pain, SOB or RUQ pain. Good movement. Patient reports: movement normal, no new complaints, no loss of fluid, no vaginal bleeding, no contractions Objective - Vital Signs Vital Signs: Vital Signs - 12hr 07/24/20 07/24/20 07/24/20 02:00 02:45 03:01 Temperature 98.3 F Pulse Rate 75 89 Respiratory Rate Blood Pressure 124/92 112/76 Blood Pressure [Left] O2 Sat by Pulse Oximetry 07/24/20 07/24/20 07/24/20 04:00 05:00 06:00 Temperature Pulse Rate 85 94 H 80 Respiratory Rate Blood Pressure 141/95 131/78 135/86 Blood Pressure [Left] O2 Sat by Pulse Oximetry 07/24/20 07/24/20 07/24/20 06:56 06:57 06:58 Temperature 98.3 F Pulse Rate 91 H 94 H 82 Respiratory 18 Rate Blood Pressure 137/85 Blood Pressure 137/85 [Left] O2 Sat by Pulse 97 94 97 Oximetry 07/24/20 07/24/20 07/24/20 07:00 08:00 09:27 Temperature Pulse Rate 85 91 H 80 Respiratory Rate Blood Pressure 135/98 147/90 128/83 Blood Pressure [Left] O2 Sat by Pulse Oximetry 07/24/20 07/24/20 07/24/20 10:00 11:00 11:23 Temperature 98.3 F Pulse Rate 80 83 88 Respiratory 16 Rate Blood Pressure 132/90 164/106 130/80 Blood Pressure 130/80 [Left] O2 Sat by Pulse Oximetry 07/24/20 07/24/20 07/24/20 11:59 13:00 13:07 Temperature Pulse Rate 85 88 97 H Respiratory Rate Blood Pressure 143/95 161/104 173/116 Blood Pressure [Left] O2 Sat by Pulse Oximetry 07/24/20 07/24/20 07/24/20 13:09 13:12 13:33 Temperature Pulse Rate 88 93 H 98 H Respiratory Rate Blood Pressure 173/116 143/87 156/90 Blood Pressure [Left] O2 Sat by Pulse Oximetry - Exam Abdomen: Present: soft - Labs Labs: Abnormal Labs 07/14/20 07/14/20 07/14/20 13:46 13:46 13:46 MCV MCH 27 L Sodium 135 L Carbon Dioxide 21 L Creatinine 0.4 L 0.4 L Albumin 3.6 L Urine Creatinine 07/14/20 07/15/20 07/18/20 16:12 07:42 15:12 MCV MCH 27 L Sodium Carbon Dioxide Creatinine Albumin Urine Creatinine 87.0 H 87.0 H 07/21/20 07/21/20 07:26 07:26 MCV 78 L MCH 26 L Sodium Carbon Dioxide Creatinine 0.4 L Albumin Urine Creatinine
[2020-07-25] MEDS: ONDANSETRON 4 MG/2 ML INJ IV PRN (01:31)
--- NOTE | 2020-07-25 07:22 | Progress Note ---
<AYANNA LIRA - Last Filed: 07/25/20 08:48> Assessment and Plan - Patient Problems (1) Intrauterine growth restriction (IUGR) affecting care of mother, third trimester, single gestation Onset Date: ~07/16/20 Current Visit: Yes Status: Acute (2) Chronic hypertension affecting Onset Date: ~07/21/20 Current Visit: Yes Status: Acute (3) 33 weeks gestation of Current Visit: Yes Status: Acute Subjective - Subjective Date of service: 07/25/20 (Pt doing well. ) Principal diagnosis: IUP 34wks (EDC 09-05-20); CHTN, IUGR Patient reports: movement normal, no new complaints, no loss of fluid, no vaginal bleeding, no contractions Objective - Vital Signs Vital Signs: Vital Signs - 12hr 07/24/20 07/24/20 07/24/20 20:59 21:25 22:00 Temperature 98.6 F Pulse Rate 84 84 82 Respiratory 20 Rate Blood Pressure 127/87 133/94 Blood Pressure 127/87 [Left] 07/24/20 07/25/20 07/25/20 22:26 00:00 01:00 Temperature Pulse Rate 82 83 85 Respiratory Rate Blood Pressure 133/94 105/67 115/75 Blood Pressure [Left] 07/25/20 07/25/20 07/25/20 02:00 03:00 04:00 Temperature Pulse Rate 85 82 86 Respiratory Rate Blood Pressure 116/67 109/60 108/66 Blood Pressure [Left] 07/25/20 07/25/20 07/25/20 05:00 06:00 06:10 Temperature 98.9 F Pulse Rate 80 80 80 Respiratory 18 Rate Blood Pressure 132/88 133/95 Blood Pressure 143/95 [Left] 07/25/20 07/25/20 07/25/20 06:11 06:12 06:13 Temperature Pulse Rate 79 79 79 Respiratory Rate Blood Pressure 143/95 143/95 143/95 Blood Pressure [Left] 07/25/20 07:00 Temperature Pulse Rate 79 Respiratory Rate Blood Pressure 154/104 Blood Pressure [Left] - Exam Narrative Exam: Pt denies VELAZQUEZ, blurred vision, spots before her eyes, chest pain, shortness of breath, upper abdominal pain, vaginal bleeding, LOF, ctxs. We discussed should any of these symptoms occur to let the RN know immediately. Pt verbalized understanding. Breasts: deferred Cardiovascular: Regular rate Lungs: Normal air movement Abdomen: Present: normal appearance, soft FHR: category 1 Uterine Contraction Pattern: Absent Extremities: normal Deep Tendon Reflex Grade: Normal +2 - Labs Labs: Abnormal Labs 07/14/20 07/14/20 07/14/20 13:46 13:46 13:46 MCV MCH 27 L Sodium 135 L Carbon Dioxide 21 L Creatinine 0.4 L 0.4 L Albumin 3.6 L Urine Creatinine 07/14/20 07/15/20 07/18/20 16:12 07:42 15:12 MCV MCH 27 L Sodium Carbon Dioxide Creatinine Albumin Urine Creatinine 87.0 H 87.0 H 07/21/20 07/21/20 07:26 07:26 MCV 78 L MCH 26 L Sodium Carbon Dioxide Creatinine 0.4 L Albumin Urine Creatinine <WEI VARELA - Last Filed: 07/25/20 09:31> Assessment and Plan Impression: -34 weeks. -IUGR diagnosed on 07/07 at [facility] was 3#5, 9%. AC 4%. Steroids completed on 07/08 and 07/09. -CHTN on labetalol 300 mg tid and Procardia 60 mg (superimposed preeclampsia ruled out) -Oligohydramnios- BEN 4.8 yesterday, scheduled for BPP/BEN/UA 07/28/2020 Recommendations: -Continue expectant management. -perform BPP and UA Dopplers twice a week (due today) scheduled for BPP/BEN/UA 07/28/2020 -Repeat growth on or after 08/04 -continue current BP medication regimen. IV antihypertensive prn severe range BPs -Delivery at 34 0/7 -37 6/7 A: 1. IUP 34 0/7 weeks gestation s/p BMZ 07/08- 2.IUGR diagnosed on 07/07 at [facility] was 3#5, 9%. AC 4%. 3lb 6 oz 1% (07/21/20) 3.CHTN with exacerbation ruled out for preeclampsia Currently on Labetalol 300 mg tid and Procardia 60 mg 4.Oligohydramnios. BEN 4.8 on 07/24/2020 Recommendations: 1. Monitor for distress, worsening maternal HTN 2. Twice weekly BPP /Doppler/4 quadrant BEN 3. Growth q2 weeks on or after 08/04 4. Continuous monitoring 5. Continue current antihypertensive regimen, titrate to maintain BP 120-160/80-105mmhg 6. Delivery at 34 0/7 -37 6/7 - Patient Problems (1) 34 weeks gestation of Current Visit: Yes Status: Acute Plan to address problem: s/p BMZ 07/08- Delivery at 34 0/7 -37 6/7 (2) Chronic hypertension affecting Onset Date: ~07/21/20 Current Visit: Yes Status: Acute Plan to address problem: CHTN on labetalol 300 mg tid and Procardia 60 mg (superimposed preeclampsia ruled out) continue current BP medication regimen. IV antihypertensive prn severe range BPs (3) Intrauterine growth restriction (IUGR) affecting care of mother, third trimester, single gestation Onset Date: ~07/16/20 Current Visit: Yes Status: Acute Plan to address problem: IUGR diagnosed on 07/07 at [facility] was 3#5, 9%. AC 4%. 3lb 6 oz 1% (07/21/20) Steroids completed on 07/08 and 07/09. Perform BPP and UA Dopplers twice a week (due today) scheduled for BPP/BEN/UA 07/28/2020 Repeat growth on or after 08/04 (4) Oligohydramnios in third trimester Onset Date: ~07/15/20 Current Visit: Yes Status: Resolved Qualifiers: Fetus number: single or unspecified fetus Qualified Code(s): O41.03X0 - Oligohydramnios, third trimester, not applicable or unspecified Plan to address problem: Oligohydramnios- BEN 4.8 yesterday, scheduled for BPP/BEN/UA 07/28/2020 Subjective - Subjective Principal diagnosis: IUP 34wks (EDC 09-05-20); CHTN, IUGR, oligohydramnios Patient reports: movement normal Objective - Vital Signs Vital Signs: Vital Signs - 12hr 07/24/20 07/24/20 07/24/20 21:25 22:00 22:26 Temperature 98.6 F Pulse Rate 84 82 82 Respiratory 20 Rate Blood Pressure 133/94 133/94 Blood Pressure 127/87 [Left] 07/25/20 07/25/20 07/25/20 00:00 01:00 02:00 Temperature Pulse Rate 83 85 85 Respiratory Rate Blood Pressure 105/67 115/75 116/67 Blood Pressure [Left] 07/25/20 07/25/20 07/25/20 03:00 04:00 05:00 Temperature Pulse Rate 82 86 80 Respiratory Rate Blood Pressure 109/60 108/66 132/88 Blood Pressure [Left] 07/25/20 07/25/20 07/25/20 06:00 06:10 06:11 Temperature 98.9 F Pulse Rate 80 80 79 Respiratory 18 Rate Blood Pressure 133/95 143/95 Blood Pressure 143/95 [Left] 07/25/20 07/25/20 07/25/20 06:12 06:13 07:00 Temperature Pulse Rate 79 79 79 Respiratory Rate Blood Pressure 143/95 143/95 154/104 Blood Pressure [Left] 07/25/20 07/25/20 07/25/20 07:45 08:00 09:00 Temperature 98.7 F Pulse Rate 81 81 Respiratory Rate Blood Pressure 121/86 138/95 Blood Pressure [Left] - Labs Labs: Abnormal Labs 07/14/20 07/14/20 07/14/20 13:46 13:46 13:46 MCV MCH 27 L Sodium 135 L Carbon Dioxide 21 L Creatinine 0.4 L 0.4 L Albumin 3.6 L Urine Creatinine 07/14/20 07/15/20 07/18/20 16:12 07:42 15:12 MCV MCH 27 L Sodium Carbon Dioxide Creatinine Albumin Urine Creatinine 87.0 H 87.0 H 07/21/20 07/21/20 07:26 07:26 MCV 78 L MCH 26 L Sodium Carbon Dioxide Creatinine 0.4 L Albumin Urine Creatinine
--- NOTE | 2020-07-25 07:45 | Ultrasound Report ---
ULTRASOUND BIOPHYSICAL PROFILE ULTRASOUND OB LIMITED INDICATION: IUGR, cHTN affecting , well being TECHNIQUE: Transabdominal ultrasound imaging. COMPARISON: 07/21/2020 FINDINGS: breathing movement = 2 Gross body movement = 2 tone = 2 Qualitative amniotic fluid volume = 2 Total biophysical score = 8/8 Amniotic fluid index is 4.8 cm. Presentation is breech. heart rate is 130 beats per minute. IMPRESSION: biophysical profile equals 8/8. Breech presentation. Oligohydramnios. ULTRASOUND OB VELOCITY SYMMETRIC UMBILICAL ARTERY HISTORY: Intrauterine growth restriction, chronic hypertension affecting , well-being TECHNIQUE: Transabdominal ultrasound with color Doppler imaging COMPARISON: 07/21/2020 FINDINGS: 3 segments of the umbilical cord were evaluated. The spectral wave forms appear normal and persistent. The average S/D ratio average measures 2.7. The RI average measures 0.57. IMPRESSION: No significant abnormality. Signer Name: Abhijit Salas Jr, MD Signed: 07/25/2020 7:41 AM Workstation Name: [id number]
--- NOTE | 2020-07-25 07:45 | Ultrasound Report ---
ULTRASOUND BIOPHYSICAL PROFILE ULTRASOUND OB LIMITED INDICATION: IUGR, cHTN affecting , well being TECHNIQUE: Transabdominal ultrasound imaging. COMPARISON: 07/21/2020 FINDINGS: breathing movement = 2 Gross body movement = 2 tone = 2 Qualitative amniotic fluid volume = 2 Total biophysical score = 8/8 Amniotic fluid index is 4.8 cm. Presentation is breech. heart rate is 130 beats per minute. IMPRESSION: biophysical profile equals 8/8. Breech presentation. Oligohydramnios. ULTRASOUND OB VELOCITY SYMMETRIC UMBILICAL ARTERY HISTORY: Intrauterine growth restriction, chronic hypertension affecting , well-being TECHNIQUE: Transabdominal ultrasound with color Doppler imaging COMPARISON: 07/21/2020 FINDINGS: 3 segments of the umbilical cord were evaluated. The spectral wave forms appear normal and persistent. The average S/D ratio average measures 2.7. The RI average measures 0.57. IMPRESSION: No significant abnormality. Signer Name: Abhijit aSlas Jr, MD Signed: 07/25/2020 7:41 AM Workstation Name: [id number]
[2020-07-25 09:32] LABS: Hematocrit 32.8 % (30.3-42.9); Hemoglobin 11.3 gm/dl (10.1-14.3); Mean Corpuscular HGB Conc 34 % (30-34); Mean Corpuscular Volume 78 fl (79-97); Red Blood Count 4.22 M/mm3 (3.65-5.03); Red Cell Distribution Width 14.4 % (13.2-15.2)
[2020-07-25 09:34] LABS: Platelet Count 135 K/mm3 (140-440)
[2020-07-25] MEDS: NIFEdipine XL 60 MG TAB PO SCH (10:39)
[2020-07-25] MEDS: PRENATAL VIT27-FE FUMARATE-FOLIC ACID VIT TAB PO SCH (10:39)
[2020-07-25] MEDS: ASPIRIN EC 81 MG TAB PO SCH (10:39)
[2020-07-25 22:01] LABS: Alanine Aminotransferase 19 units/L (7-56)
[2020-07-26 06:21] LABS: Hematocrit 32.6 % (30.3-42.9); Hemoglobin 10.9 gm/dl (10.1-14.3); Mean Corpuscular HGB Conc 33 % (30-34); Mean Corpuscular Volume 80 fl (79-97); Platelet Count 136 K/mm3 (140-440); Red Blood Count 4.11 M/mm3 (3.65-5.03)
[2020-07-26] MEDS: ONDANSETRON 4 MG/2 ML INJ IV PRN (07:55)
[2020-07-26] MEDS: PRENATAL VIT27-FE FUMARATE-FOLIC ACID VIT TAB PO SCH (10:00)
--- NOTE | 2020-07-26 11:08 | Progress Note ---
Assessment and Plan Pt resting w/o VELAZQUEZ last night and nausea. she reports + FM, denies ctx, SROM or vag bleeding. She denies Epigastric pain or visual changes. platelets rechecked this morning 136. pt reports feeling some pelvis pressure and FHT are now being traced over bladder. Will get u/s to confirm presentation. Will review patient with Dr. Ryan. A: 1. IUP at 34+1 weeks gestation s/p BMZ 07/08- 2.IUGR diagnosed on 07/07 at [facility] was 3#5, 9%. AC 4%. 3lb 6 oz 1% (07/21/20) 3.CHTN with exacerbation ruled out for preeclampsia Currently on Labetalol 300 mg TID and Procardia 60 mg 4.Oligohydramnios. 5. Breech - c/s planned for 37+0 Recommendations: 1. Monitor for distress, worsening maternal HTN 2. Twice weekly BPP /Doppler/4 quadrant BEN - ordered for 07/28/2020 3. Growth q2 weeks on or after 08/04 4. Continuous monitoring 5. Continue current antihypertensive regimen, titrate to maintain BP 120-160/80-105mmhg 6. Delivery at 34 0/7 -37 6/7 - Patient Problems (1) Intrauterine growth restriction (IUGR) affecting care of mother, third trimester, single gestation Onset Date: ~07/16/20 Current Visit: Yes Status: Acute (2) Oligohydramnios in third trimester Onset Date: ~07/15/20 Current Visit: Yes Status: Resolved Qualifiers: Fetus number: single or unspecified fetus Qualified Code(s): O41.03X0 - Oligohydramnios, third trimester, not applicable or unspecified (3) Chronic hypertension affecting Onset Date: ~07/21/20 Current Visit: Yes Status: Acute (4) 34 weeks gestation of Current Visit: Yes Status: Acute Subjective - Subjective Date of service: 07/26/20 Principal diagnosis: IUP 34wk1d (EDC 09-05-20); CHTN, IUGR, oligohydramnios Patient reports: new complaints (nausea and VELAZQUEZ), movement normal, no loss of fluid, no vaginal bleeding, no contractions Objective - Vital Signs Vital Signs: Vital Signs - 12hr 07/25/20 07/26/20 07/26/20 23:19 00:00 01:01 Temperature 98.6 F Pulse Rate 84 81 76 Respiratory 18 Rate Blood Pressure 125/69 157/104 Blood Pressure 130/86 [Left] 07/26/20 07/26/20 07/26/20 02:00 03:00 03:24 Temperature 99.0 F Pulse Rate 83 79 79 Respiratory 18 Rate Blood Pressure 159/100 140/103 Blood Pressure 140/103 [Left] 07/26/20 07/26/20 07/26/20 04:00 05:00 06:16 Temperature Pulse Rate 78 80 80 Respiratory Rate Blood Pressure 118/81 121/82 121/82 Blood Pressure [Left] 07/26/20 07/26/20 07/26/20 06:17 06:59 08:00 Temperature Pulse Rate 80 80 83 Respiratory Rate Blood Pressure 121/82 141/95 128/89 Blood Pressure [Left] 07/26/20 07/26/20 09:00 10:00 Temperature Pulse Rate 81 90 Respiratory Rate Blood Pressure 123/84 125/92 Blood Pressure [Left] - Exam Cardiovascular: Regular rate Lungs: Normal air movement Abdomen: Present: normal appearance, soft. Absent: distention, tenderness Vulva: both: normal Uterus: Present: normal, fundal height above umbilicus FHR: category 1 Uterine Contraction Monitor Mode: External Uterine Contraction Pattern: Absent Uterine Tone Measurement Phase: Resting Extremities: normal Deep Tendon Reflex Grade: Normal +2 - Labs Labs: Abnormal Labs 07/14/20 07/14/20 07/14/20 13:46 13:46 13:46 MCV MCH 27 L Plt Count Sodium 135 L Carbon Dioxide 21 L Creatinine 0.4 L 0.4 L Albumin 3.6 L Urine Creatinine 07/14/20 07/15/20 07/18/20 16:12 07:42 15:12 MCV MCH 27 L Plt Count Sodium Carbon Dioxide Creatinine Albumin Urine Creatinine 87.0 H 87.0 H 07/21/20 07/21/20 07/25/20 07:26 07:26 09:08 MCV 78 L 78 L MCH 26 L 27 L Plt Count 135 L Sodium Carbon Dioxide Creatinine 0.4 L Albumin Urine Creatinine 07/25/20 07/26/20 21:24 05:41 MCV MCH 26 L Plt Count 136 L Sodium Carbon Dioxide Creatinine 0.4 L Albumin Urine Creatinine Laboratory Results - last 24 hr 07/25/20 07/25/2007/26/21 09:09 21:24 05:41 WBC 4.8 RBC 4.11 Hgb 10.9 Hct 32.6 MCV 80 MCH 26 L MCHC 33 RDW 14.0 Plt Count 136 L Creatinine 0.4 L Estimated GFR > 60 AST 19 ALT 19 Lactate Dehydrogenase 157 Antibody Screen Negative
[2020-07-26] MEDS: NIFEdipine XL 60 MG TAB PO SCH (12:01)
[2020-07-26] MEDS: ASPIRIN EC 81 MG TAB PO SCH (12:01)
--- NOTE | 2020-07-26 13:55 | Ultrasound Report ---
US OB limited INDICATION: Evaluate presentation. COMPARISON: OB ultrasound from 07/24/2020. FINDINGS: A single live intrauterine is seen in breech presentation with a heart rate of 130 bpm. No acute abnormality is noted on the submitted images. IMPRESSION: Breech presentation of a single live intrauterine . Signer Name: Talha Flannery MD Signed: 07/26/2020 1:51 PM Workstation Name: [id number]
[2020-07-26 19:29] LABS: Red Blood Count 4.09 M/mm3 (3.65-5.03)
[2020-07-26 19:30] LABS: Hematocrit 32.1 % (30.3-42.9); Hemoglobin 10.7 gm/dl (10.1-14.3); Mean Corpuscular HGB Conc 33 % (30-34); Mean Corpuscular Volume 79 fl (79-97); Platelet Count 141 K/mm3 (140-440)
[2020-07-26 19:50] LABS: Alanine Aminotransferase 17 units/L (7-56); Albumin 3.4 g/dL (3.9-5); BUN/Creatinine Ratio 15; Blood Urea Nitrogen 6 mg/dL (7-17); Calcium 8.8 mg/dL (8.4-10.2); Hemolysis Index 0
--- NOTE | 2020-07-26 19:59 | Progress Note ---
Assessment and Plan 1, IUP at 34 1/7 weeks' 2. Essential hypertension without apparent superimposed preeclampsia 3. IUGR 1. Continue twice weekly BPP/umbilical artery doppler velocimetry, PIH labs 2. Repeat 24 hour urine total protein [TP]/creatinine clearance [ordered for 07/27/20] weekly 3. Deliver if TP >/= 300 mg for severe superimposed preeclampsia Subjective - Subjective Date of service: 07/26/20 Principal diagnosis: IUP 34wk1d (EDC 09-05-20); CHTN, IUGR Interval history: Feeling well, fetus active Patient reports: new complaints, movement normal, no loss of fluid, no vaginal bleeding, no contractions Objective - Vital Signs Vital Signs: Vital Signs - 12hr 07/26/20 07/26/20 07/26/20 08:00 09:00 10:00 Temperature Pulse Rate 83 81 90 Blood Pressure 128/89 123/84 125/92 O2 Sat by Pulse Oximetry 07/26/20 07/26/20 07/26/20 11:30 11:54 12:01 Temperature 98.8 F Pulse Rate 90 81 Blood Pressure 133/94 124/85 O2 Sat by Pulse Oximetry 07/26/20 07/26/20 07/26/20 12:09 12:14 12:19 Temperature Pulse Rate 81 79 78 Blood Pressure O2 Sat by Pulse 100 100 99 Oximetry 07/26/20 07/26/20 07/26/20 12:24 12:29 12:34 Temperature Pulse Rate 80 84 81 Blood Pressure O2 Sat by Pulse 99 100 99 Oximetry 07/26/20 07/26/20 07/26/20 12:39 12:44 12:49 Temperature Pulse Rate 88 76 77 Blood Pressure O2 Sat by Pulse 99 99 100 Oximetry 07/26/20 07/26/20 07/26/20 12:54 12:59 13:00 Temperature Pulse Rate 81 78 98 H Blood Pressure O2 Sat by Pulse 100 100 91 Oximetry 07/26/20 07/26/20 07/26/20 13:01 13:04 13:09 Temperature Pulse Rate 90 79 77 Blood Pressure 142/93 O2 Sat by Pulse 100 100 Oximetry 07/26/20 07/26/20 07/26/20 13:14 13:19 13:24 Temperature Pulse Rate 78 76 86 Blood Pressure O2 Sat by Pulse 100 100 99 Oximetry 0307/26/20 07/26/20 13:29 13:31 13:34 Temperature Pulse Rate 82 89 73 Blood Pressure O2 Sat by Pulse 100 91 100 Oximetry 07/26/20 07/26/20 07/26/20 13:39 13:44 13:49 Temperature Pulse Rate 75 76 82 Blood Pressure O2 Sat by Pulse 100 100 99 Oximetry 07/26/20 07/26/20 07/26/20 13:54 13:59 14:02 Temperature Pulse Rate 84 78 76 Blood Pressure 148/94 O2 Sat by Pulse 100 100 Oximetry 07/26/20 07/26/20 07/26/20 14:04 14:09 14:14 Temperature Pulse Rate 78 79 79 Blood Pressure O2 Sat by Pulse 100 100 100 Oximetry 07/26/20 07/26/20 07/26/20 14:19 14:24 14:29 Temperature Pulse Rate 82 79 76 Blood Pressure O2 Sat by Pulse 100 100 99 Oximetry 07/26/20 07/26/20 07/26/20 14:34 14:37 14:39 Temperature Pulse Rate 81 74 Blood Pressure O2 Sat by Pulse 99 62 L 100 Oximetry 07/26/20 07/26/20 07/26/20 14:44 14:45 14:49 Temperature 98.4 F Pulse Rate 75 76 80 Blood Pressure 140/98 145/83 O2 Sat by Pulse 99 100 Oximetry 07/26/20 07/26/20 07/26/20 14:54 14:59 15:01 Temperature Pulse Rate 76 79 82 Blood Pressure 151/111 O2 Sat by Pulse 100 99 Oximetry 07/26/20 07/26/20 07/26/20 15:04 15:06 15:11 Temperature Pulse Rate 90 56 L 91 H Blood Pressure O2 Sat by Pulse 99 83 L 99 Oximetry 07/26/20 07/26/20 07/26/20 15:12 15:16 15:21 Temperature Pulse Rate 88 88 85 Blood Pressure O2 Sat by Pulse 89 99 100 Oximetry 07/26/20 07/26/20 07/26/20 15:25 15:26 15:31 Temperature Pulse Rate 73 74 78 Blood Pressure 144/103 O2 Sat by Pulse 99 99 Oximetry 07/26/20 07/26/20 07/26/20 15:36 15:41 15:46 Temperature Pulse Rate 77 81 79 Blood Pressure O2 Sat by Pulse 99 100 99 Oximetry 07/26/20 07/26/20 07/26/20 15:51 15:56 15:59 Temperature Pulse Rate 89 81 85 Blood Pressure 139/104 O2 Sat by Pulse 98 99 Oximetry 07/26/20 07/26/20 07/26/20 16:01 16:06 16:11 Temperature Pulse Rate 81 79 81 Blood Pressure O2 Sat by Pulse 99 99 99 Oximetry 07/26/20 07/26/20 07/26/20 16:16 16:21 16:26 Temperature Pulse Rate 79 75 76 Blood Pressure O2 Sat by Pulse 99 100 99 Oximetry 07/26/20 07/26/20 07/26/20 16:30 16:32 16:37 Temperature Pulse Rate 87 84 78 Blood Pressure O2 Sat by Pulse 83 L 99 100 Oximetry 07/26/20 07/26/20 07/26/20 16:42 16:47 16:52 Temperature Pulse Rate 82 83 79 Blood Pressure O2 Sat by Pulse 100 100 100 Oximetry 07/26/20 07/26/20 07/26/20 16:57 17:00 17:02 Temperature 98.7 F Pulse Rate 90 Blood Pressure O2 Sat by Pulse 83 L 81 L Oximetry 07/26/20 07/26/20 07/26/20 17:07 17:09 17:14 Temperature Pulse Rate 60 87 88 Blood Pressure O2 Sat by Pulse 75 L 98 98 Oximetry 07/26/20 07/26/20 07/26/20 17:19 17:24 17:29 Temperature Pulse Rate 75 76 78 Blood Pressure O2 Sat by Pulse 99 99 99 Oximetry 07/26/20 07/26/20 07/26/20 17:34 17:39 17:44 Temperature Pulse Rate 84 75 76 Blood Pressure O2 Sat by Pulse 99 99 98 Oximetry 07/26/20 07/26/20 07/26/20 17:49 17:54 17:59 Temperature Pulse Rate 74 76 77 Blood Pressure O2 Sat by Pulse 98 97 97 Oximetry 07/26/20 07/26/20 07/26/20 18:00 18:04 18:09 Temperature Pulse Rate 78 77 77 Blood Pressure 147/94 O2 Sat by Pulse 97 97 Oximetry 07/26/20 07/26/20 07/26/20 18:14 18:19 18:24 Temperature Pulse Rate 77 77 77 Blood Pressure O2 Sat by Pulse 97 97 97 Oximetry 07/26/20 07/26/20 07/26/20 18:29 18:34 18:39 Temperature Pulse Rate 76 85 81 Blood Pressure O2 Sat by Pulse 97 96 99 Oximetry 07/26/20 07/26/20 07/26/20 18:44 18:49 18:54 Temperature Pulse Rate 75 70 87 Blood Pressure O2 Sat by Pulse 99 98 99 Oximetry 07/26/20 07/26/20 07/26/20 18:59 19:04 19:09 Temperature Pulse Rate 78 89 83 Blood Pressure 141/95 O2 Sat by Pulse 99 99 99 Oximetry 07/26/20 07/26/20 07/26/20 19:14 19:19 19:24 Temperature Pulse Rate 84 86 80 Blood Pressure O2 Sat by Pulse 100 99 100 Oximetry 07/26/20 07/26/20 07/26/20 19:29 19:33 19:34 Temperature Pulse Rate 77 57 L 54 L Blood Pressure O2 Sat by Pulse 99 58 L 86 Oximetry 07/26/20 07/26/20 07/26/20 19:39 19:40 19:45 Temperature Pulse Rate 164 H 88 Blood Pressure O2 Sat by Pulse 78 L 90 98 Oximetry 07/26/20 07/26/20 19:48 19:50 Temperature Pulse Rate 78 84 Blood Pressure 126/84 O2 Sat by Pulse 99 Oximetry - Exam Narrative Exam: Abd soft, nontender; FHT's reactive; latest labs with no evidence of HELLP Syndrome or renal insufficiency Abdomen: Present: normal appearance, soft. Absent: distention, tenderness FHR: auscultation normal - Labs Labs: Abnormal Labs 07/14/20 07/14/20 07/14/20 13:46 13:46 13:46 MCV MCH 27 L Plt Count Sodium 135 L Carbon Dioxide 21 L BUN Creatinine 0.4 L 0.4 L Albumin 3.6 L Urine Creatinine 07/14/20 07/15/20 07/18/20 16:12 07:42 15:12 MCV MCH 27 L Plt Count Sodium Carbon Dioxide BUN Creatinine Albumin Urine Creatinine 87.0 H 87.0 H 07/21/20 07/21/20 07/25/20 07:26 07:26 09:08 MCV 78 L 78 L MCH 26 L 27 L Plt Count 135 L Sodium Carbon Dioxide BUN Creatinine 0.4 L Albumin Urine Creatinine 07/25/20 07/26/20 07/26/20 21:24 05:41 18:53 MCV MCH 26 L 26 L Plt Count 136 L Sodium Carbon Dioxide BUN Creatinine 0.4 L Albumin Urine Creatinine 07/26/20 18:53 MCV MCH Plt Count Sodium 136 L Carbon Dioxide BUN 6 L Creatinine 0.4 L Albumin 3.4 L Urine Creatinine Laboratory Results - last 24 hr 07/25/20 07/26/20 07/26/20 21:24 05:41 18:53 WBC 4.8 4.7 RBC 4.11 4.09 Hgb 10.9 10.7 Hct 32.6 32.1 MCV 80 79 MCH 26 L 26 L MCHC 33 33 RDW 14.0 14.0 Plt Count 136 L 141 Sodium Potassium Chloride Carbon Dioxide Anion Gap BUN Creatinine 0.4 L Estimated GFR > 60 BUN/Creatinine Ratio Glucose Calcium Total Bilirubin AST 19 ALT 19 Alkaline Phosphatase Lactate Dehydrogenase 157 Total Protein Albumin Albumin/Globulin Ratio 07/26/20 18:53 WBC RBC Hgb Hct MCV MCH MCHC RDW Plt Count Sodium 136 L Potassium 3.8 Chloride 103.7 Carbon Dioxide 22 Anion Gap 14 BUN 6 L Creatinine 0.4 L Estimated GFR > 60 BUN/Creatinine Ratio 15 Glucose 76 Calcium 8.8 Total Bilirubin < 0.20 AST 18 ALT 17 Alkaline Phosphatase 108 Lactate Dehydrogenase Total Protein 6.5 Albumin 3.4 L Albumin/Globulin Ratio 1.1
--- NOTE | 2020-07-27 07:44 | Progress Note ---
Assessment and Plan pt reports feeling better this morning, nausea resolved, no additional VELAZQUEZ. weekly 24hr urine started. A: 1. IUP at 34+2 weeks gestation s/p BMZ 07/08- 2.IUGR diagnosed on 07/07 at [facility] was 3#5, 9%. AC 4%. 3lb 6 oz 1% (07/21/20) 3.CHTN with exacerbation ruled out for preeclampsia Currently on Labetalol 300 mg TID and Procardia 60 mg 24hr urine started this morning @ 0700 4.Oligohydramnios. 5. Breech - c/s planned for 37+0 Recommendations from [facility]: 1. Monitor for distress, worsening maternal HTN 2. Twice weekly BPP /Doppler/4 quadrant BEN - ordered for 07/28/2020 3. Growth q2 weeks on or after 08/04 4. Continuous monitoring 5. Continue current antihypertensive regimen, titrate to maintain BP 120-160/80-105mmhg 6. Weekly 24hr urine, delivery if TP>/= 300 6. Delivery at 34 0 -37 10/27 - Patient Problems (1) Intrauterine growth restriction (IUGR) affecting care of mother, third trimester, single gestation Onset Date: ~07/16/20 Current Visit: Yes Status: Acute (2) Oligohydramnios in third trimester Onset Date: ~07/15/20 Current Visit: Yes Status: Resolved Qualifiers: Fetus number: single or unspecified fetus Qualified Code(s): O41.03X0 - Oligohydramnios, third trimester, not applicable or unspecified (3) Chronic hypertension affecting Onset Date: ~07/21/20 Current Visit: Yes Status: Acute (4) 34 weeks gestation of Current Visit: Yes Status: Acute Subjective - Subjective Date of service: 07/27/20 Principal diagnosis: IUP 34wk2d (EDC 09-05-20); CHTN, IUGR Patient reports: movement normal, no new complaints, no loss of fluid, no vaginal bleeding, no contractions Objective - Vital Signs Vital Signs: Vital Signs - 12hr 07/26/20 07/26/20 07/26/20 19:45 19:48 19:50 Temperature 98.7 F Pulse Rate 88 78 84 Respiratory 18 Rate Blood Pressure 126/84 Blood Pressure [Left] O2 Sat by Pulse 98 99 Oximetry 07/26/20 07/26/20 07/26/20 19:55 20:00 20:01 Temperature Pulse Rate 90 89 86 Respiratory Rate Blood Pressure 143/78 Blood Pressure [Left] O2 Sat by Pulse 100 99 Oximetry 07/26/20 07/26/20 07/26/20 21:00 21:57 21:58 Temperature Pulse Rate 90 90 90 Respiratory Rate Blood Pressure 122/79 122/79 122/79 Blood Pressure [Left] O2 Sat by Pulse Oximetry 07/26/20 07/26/20 07/26/20 22:00 23:00 23:04 Temperature 98.5 F Pulse Rate 86 94 H Respiratory 18 Rate Blood Pressure 118/78 120/62 Blood Pressure [Left] O2 Sat by Pulse Oximetry 07/27/20 07/27/20 07/27/20 00:00 01:00 01:59 Temperature Pulse Rate 90 83 76 Respiratory Rate Blood Pressure 121/73 118/77 123/84 Blood Pressure [Left] O2 Sat by Pulse Oximetry 07/27/20 07/27/20 07/27/20 02:59 03:03 03:59 Temperature 98.2 F Pulse Rate 75 91 H Respiratory 16 Rate Blood Pressure 134/90 121/93 Blood Pressure [Left] O2 Sat by Pulse Oximetry 07/27/20 07/27/20 07/27/20 05:00 05:59 07:04 Temperature Pulse Rate 80 82 83 Respiratory Rate Blood Pressure 122/98 129/95 125/87 Blood Pressure [Left] O2 Sat by Pulse Oximetry 07/27/20 07/27/20 07/27/20 07:06 07:15 07:16 Temperature 98.8 F Pulse Rate 83 83 83 Respiratory 18 Rate Blood Pressure 125/87 125/87 Blood Pressure 125/87 [Left] O2 Sat by Pulse Oximetry - Exam Breasts: normal Cardiovascular: Regular rate Lungs: Normal air movement Abdomen: Present: normal appearance, soft Uterus: Present: normal, fundal height above umbilicus FHR: category 1 Uterine Contraction Monitor Mode: External Uterine Contraction Pattern: Absent Uterine Tone Measurement Phase: Resting Extremities: normal Deep Tendon Reflex Grade: Normal +2 - Labs Labs: Abnormal Labs 07/14/20 07/14/20 07/14/20 13:46 13:46 13:46 MCV MCH 27 L Plt Count Sodium 135 L Carbon Dioxide 21 L BUN Creatinine 0.4 L 0.4 L Albumin 3.6 L Urine Creatinine 07/14/20 07/15/20 07/18/20 16:12 07:42 15:12 MCV MCH 27 L Plt Count Sodium Carbon Dioxide BUN Creatinine Albumin Urine Creatinine 87.0 H 87.0 H 07/21/20 07/21/20 07/25/20 07:26 07:26 09:08 MCV 78 L 78 L MCH 26 L 27 L Plt Count 135 L Sodium Carbon Dioxide BUN Creatinine 0.4 L Albumin Urine Creatinine 07/25/20 07/26/20 07/26/20 21:24 05:41 18:53 MCV MCH 26 L 26 L Plt Count 136 L Sodium Carbon Dioxide BUN Creatinine 0.4 L Albumin Urine Creatinine 07/26/20 18:53 MCV MCH Plt Count Sodium 136 L Carbon Dioxide BUN 6 L Creatinine 0.4 L Albumin 3.4 L Urine Creatinine Laboratory Results - last 24 hr 07/26/20 07/26/20 18:53 18:53 WBC 4.7 RBC 4.09 Hgb 10.7 Hct 32.1 MCV 79 MCH 26 L MCHC 33 RDW 14.0 Plt Count 141 Sodium 136 L Potassium 3.8 Chloride 103.7 Carbon Dioxide 22 Anion Gap 14 BUN 6 L Creatinine 0.4 L Estimated GFR > 60 BUN/Creatinine Ratio 15 Glucose 76 Calcium 8.8 Total Bilirubin < 0.20 AST 18 ALT 17 Alkaline Phosphatase 108 Total Protein 6.5 Albumin 3.4 L Albumin/Globulin Ratio 1.1
[2020-07-27] MEDS: NIFEdipine XL 60 MG TAB PO SCH (10:09)
[2020-07-27] MEDS: PRENATAL VIT27-FE FUMARATE-FOLIC ACID VIT TAB PO SCH (10:09)
[2020-07-27] MEDS: ASPIRIN EC 81 MG TAB PO SCH (10:09)
[2020-07-27] MEDS: ONDANSETRON 4 MG/2 ML INJ IV PRN ×2 (16:01→23:20)
--- NOTE | 2020-07-28 06:22 | Progress Note ---
Assessment and Plan IUP at 34+3weeks gestation s/p BMZ 07/08- BP 140-120/80-70 Dr Ryan consulted Breech - c/s planned for 37+0 Recommendations from [facility]: 1. Monitor for distress, worsening maternal HTN 2. Twice weekly BPP /Doppler/4 quadrant BEN - ordered for 07/28/2020 3. Growth q2 weeks on or after 08/04 4. Continuous monitoring 5. Continue current antihypertensive regimen, titrate to maintain BP 120-160/80-105mmhg 6. Weekly 24hr urine, delivery if TP>/= 300 6. Delivery at 34 0/7 -37 6/7 - Patient Problems (1) Chronic hypertension affecting Onset Date: ~07/21/20 Current Visit: Yes Status: Acute Plan to address problem: CHTN with exacerbation ruled out for preeclampsia Currently on Labetalol 300 mg TID and Procardia 60 mg 24hr urine to be completed this morning @ 0700 (2) Intrauterine growth restriction (IUGR) affecting care of mother, third trimester, single gestation Onset Date: ~07/16/20 Current Visit: Yes Status: Acute Plan to address problem: IUGR diagnosed on 07/07 at [facility] was 3#5, 9%. AC 4%. 3lb 6 oz 1% (07/21/20) Growth scan on 08/04/20 (3) Oligohydramnios in third trimester Onset Date: ~07/15/20 Current Visit: Yes Status: Resolved Qualifiers: Fetus number: single or unspecified fetus Qualified Code(s): O41.03X0 - Oligohydramnios, third trimester, not applicable or unspecified Plan to address problem: Oligohydramnios. Most recent BEN 4.8 US today for BPP, Doppler, and BEN Subjective - Subjective Date of service: 07/28/20 (pt in good spirits) Principal diagnosis: IUP 34wk3d (EDC 09-05-20); CHTN, IUGR Patient reports: movement normal, no new complaints, no loss of fluid, no vaginal bleeding, no contractions Objective - Vital Signs Vital Signs: Vital Signs - 12hr 07/27/20 07/27/20 07/27/20 19:00 19:16 20:00 Temperature 98.7 F Pulse Rate 78 78 85 Respiratory 18 Rate Blood Pressure 107/62 111/57 Blood Pressure 107/62 [Left] 07/27/20 07/27/20 07/27/20 21:00 22:00 22:04 Temperature Pulse Rate 80 79 79 Respiratory Rate Blood Pressure 123/64 119/60 119/60 Blood Pressure [Left] 07/27/20 07/28/20 07/28/20 23:59 00:59 01:59 Temperature Pulse Rate 75 80 82 Respiratory Rate Blood Pressure 117/65 120/78 125/72 Blood Pressure [Left] 07/28/20 07/28/20 07/28/20 02:59 03:59 05:00 Temperature Pulse Rate 82 85 84 Respiratory Rate Blood Pressure 114/74 118/64 145/66 Blood Pressure [Left] 07/28/20 05:59 Temperature Pulse Rate 90 Respiratory Rate Blood Pressure 130/71 Blood Pressure [Left] - Exam Breasts: deferred Cardiovascular: Regular rate Lungs: Normal air movement Abdomen: Present: normal appearance, soft. Absent: distention, tenderness Uterus: Present: normal FHR: auscultation normal, category 1 Uterine Contraction Monitor Mode: External Uterine Tone Measurement Phase: Resting Extremities: edema (facial Noted by CNM; pt does not perceive the swelling) Deep Tendon Reflex Grade: Normal +2 - Labs Labs: Abnormal Labs 07/14/20 07/14/20 07/14/20 13:46 13:46 13:46 MCV MCH 27 L Plt Count Sodium 135 L Carbon Dioxide 21 L BUN Creatinine 0.4 L 0.4 L Albumin 3.6 L Urine Creatinine 07/14/20 07/15/20 07/18/20 16:12 07:42 15:12 MCV MCH 27 L Plt Count Sodium Carbon Dioxide BUN Creatinine Albumin Urine Creatinine 87.0 H 87.0 H 07/21/20 07/21/20 07/25/20 07:26 07:26 09:08 MCV 78 L 78 L MCH 26 L 27 L Plt Count 135 L Sodium Carbon Dioxide BUN Creatinine 0.4 L Albumin Urine Creatinine 07/25/20 07/26/20 07/26/20 21:24 05:41 18:53 MCV MCH 26 L 26 L Plt Count 136 L Sodium Carbon Dioxide BUN Creatinine 0.4 L Albumin Urine Creatinine 07/26/20 18:53 MCV MCH Plt Count Sodium 136 L Carbon Dioxide BUN 6 L Creatinine 0.4 L Albumin 3.4 L Urine Creatinine
[2020-07-28] MEDS: ASPIRIN EC 81 MG TAB PO SCH (10:16)
[2020-07-28] MEDS: NIFEdipine XL 60 MG TAB PO SCH (10:17)
[2020-07-28] MEDS: PRENATAL VIT27-FE FUMARATE-FOLIC ACID VIT TAB PO SCH (10:17)
[2020-07-28 11:40] LABS: Creatinine,Urine 102.4 mg/dL (0.1-20.0)
--- NOTE | 2020-07-28 14:20 | Ultrasound Report ---
ULTRASOUND OB VELOCITY MATERIAL UMBILICAL ARTERY HISTORY: Intrauterine growth restriction TECHNIQUE: Transabdominal ultrasound with color and spectral Doppler imaging. COMPARISON: 07/24/2020. FINDINGS: 3 segments of the umbilical cord were evaluated. The spectral waveforms are normal and persistent. No loss of end-diastolic flow. The resistive index average measures 0.64. The S/D ratio average measures 2.8. IMPRESSION: Umbilical cord Doppler within normal limits. Signer Name: Abhijit Salas Jr, MD Signed: 07/28/2020 2:15 PM Workstation Name: [id number]
--- NOTE | 2020-07-28 14:21 | Ultrasound Report ---
ULTRASOUND BIOPHYSICAL PROFILE ULTRASOUND OB LIMITED INDICATION: IUGR, CHTN well being TECHNIQUE: Transabdominal ultrasound imaging. COMPARISON: 07/26/2020 FINDINGS: breathing movement = 2 Gross body movement = 2 tone = 2 Qualitative amniotic fluid volume = 2 Total biophysical score = 8/8 Amniotic fluid index is 7.3 cm. Presentation is breech. heart rate is 139 beats per minute. IMPRESSION: biophysical profile equals 8/8. Signer Name: Abhijit Salas Jr, MD Signed: 07/28/2020 2:16 PM Workstation Name: [id number]
--- NOTE | 2020-07-28 18:16 | Progress Note ---
Assessment and Plan 1, IUP at 34 3/7 weeks' 2. Essential hypertension without apparent superimposed preeclampsia 3. IUGR 1. Continue twice weekly BPP/umbilical artery doppler velocimetry, PIH labs 2. Repeat 24 hour urine total protein [TP]/creatinine clearance [ordered for 07/27/20] weekly 3. Deliver if TP >/= 300 mg for severe superimposed preeclampsia 4. Will discuss possible outpatient management with MFM colleagues and OB, including twice weekly surveillance with BPP/Dopplers, weekly PIH labs and 24 hour urine total protein/creatinine clearance, and readmission for evidenc of maternal or deterioration Subjective - Subjective Date of service: 07/28/20 Principal diagnosis: IUP 34wk3d (EDC 09-05-20); CHTN, IUGR Interval history: Feeling well, fetus active Patient reports: movement normal, no new complaints, no loss of fluid, no vaginal bleeding, no contractions Objective - Vital Signs Vital Signs: Vital Signs - 12hr 07/28/20 07/28/20 07/28/20 06:24 06:30 07:00 Temperature 98.7 F Pulse Rate 90 90 90 Respiratory 18 Rate Blood Pressure 130/71 135/85 Blood Pressure 130/71 [Left] 07/28/20 07/28/20 07/28/20 08:55 09:00 10:00 Temperature 97.5 F L Pulse Rate 87 82 Respiratory Rate Blood Pressure 104/61 116/77 Blood Pressure [Left] 07/28/20 07/28/20 07/28/20 11:00 12:00 12:32 Temperature 97.7 F Pulse Rate 88 81 Respiratory Rate Blood Pressure 118/77 117/73 Blood Pressure [Left] 07/28/20 07/28/20 07/28/20 13:40 13:43 13:44 Temperature Pulse Rate 88 88 88 Respiratory Rate Blood Pressure 130/96 130/96 130/96 Blood Pressure [Left] 07/28/20 07/28/20 13:59 14:59 Temperature Pulse Rate 87 84 Respiratory Rate Blood Pressure 129/88 127/87 Blood Pressure [Left] - Exam Narrative Exam: Abd soft, nontender; FHT's reassuring earlier today; latest labs with no evidence of HELLP Syndrome or renal insufficiency; latest 24 hour urine total protein 144 mg; U/S today with BEN 7.3 cm, BPP 8/8, normal umbilical artery doppler velocimetry - Labs Labs: Abnormal Labs 07/14/20 07/14/20 07/14/20 13:46 13:46 13:46 MCV MCH 27 L Plt Count Sodium 135 L Carbon Dioxide 21 L BUN Creatinine 0.4 L 0.4 L Albumin 3.6 L Urine Creatinine 07/14/20 07/15/20 07/18/20 16:12 07:42 15:12 MCV MCH 27 L Plt Count Sodium Carbon Dioxide BUN Creatinine Albumin Urine Creatinine 87.0 H 87.0 H 07/21/20 07/21/20 07/25/20 07:26 07:26 09:08 MCV 78 L 78 L MCH 26 L 27 L Plt Count 135 L Sodium Carbon Dioxide BUN Creatinine 0.4 L Albumin Urine Creatinine 07/25/20 07/26/20 07/26/20 21:24 05:41 18:53 MCV MCH 26 L 26 L Plt Count 136 L Sodium Carbon Dioxide BUN Creatinine 0.4 L Albumin Urine Creatinine 07/26/20 07/27/20 18:53 07:00 MCV MCH Plt Count Sodium 136 L Carbon Dioxide BUN 6 L Creatinine 0.4 L Albumin 3.4 L Urine Creatinine 102.4 H Laboratory Results - last 24 hr 07/27/20 07/27/20 07:00 07:00 Urine Total Volume 1600 1600 Urine Creatinine 102.4 H Height (in) 63.0 Weight (lb) 221.0 Creatinine Clearance 244 Ur Total Protein 24 Hr 144.00 Urine Total Protein 9
[2020-07-28] MEDS: ONDANSETRON 4 MG ODT TAB PO PRN (21:01)
--- NOTE | 2020-07-29 07:43 | Progress Note ---
Assessment and Plan A: 35 y.o. @ 34.4 wks with cHTN and IUGR. - Patient Problems (1) Intrauterine growth restriction (IUGR) affecting care of mother, third trimester, single gestation Onset Date: ~07/16/20 Current Visit: Yes Status: Acute Plan to address problem: EFW on 07/21 3#6, 1%. Ultrasound on 07/28: BPP 12/28. Normal UA Dopplers. BEN, 7.3 cm. BPP and UA Dopplers twice a week (Mon and Thurs) Repeat growth on or after 08/04. Continuous EFM at this time. Del recommended @ 34-37 wks. (2) Chronic hypertension affecting Onset Date: ~07/21/20 Current Visit: Yes Status: Acute Plan to address problem: No evidence of preeclampsia. 24 hour urine on 07/28 was 144 mg. Continue labetalol 300 mg bid and nifedipine 60 mg daily. Blood pressures remain normal to mild range. Evaluate preeclampsia labs at least once a week. (3) Thrombocytopenia affecting Current Visit: Yes Status: Acute Plan to address problem: Platelet count on 07/26: 141 Previous: 07/25 135 and 07/26 136 Will continue to monitor. Subjective - Subjective Date of service: 07/29/20 (Pt doing well.) Principal diagnosis: IUP 34wk4d (EDC 09-05-20); CHTN, IUGR Patient reports: movement normal, no new complaints, no loss of fluid, no vaginal bleeding, no contractions Objective - Vital Signs Vital Signs: Vital Signs - 12hr 07/28/20 07/28/20 19:44 22:07 Temperature 98.6 F Pulse Rate 82 86 Respiratory 18 Rate Blood Pressure 116/76 119/73 - Exam Narrative Exam: Pt denies vaginal bleeding, LOF, ctxs, VELAZQUEZ, blurred vision, spots before her eyes, shortness of breath, chest pain, and upper abdominal pain. We discussed that if any of these symptoms occur to let the RN know immediately. Breasts: deferred Cardiovascular: Regular rate Lungs: Normal air movement Abdomen: Present: normal appearance, soft Uterus: Present: normal FHR: category 1 Uterine Contraction Monitor Mode: External Uterine Contraction Pattern: Absent Extremities: normal Deep Tendon Reflex Grade: Normal +2 - Labs Labs: Abnormal Labs 07/14/20 07/14/20 07/14/20 13:46 13:46 13:46 MCV MCH 27 L Plt Count Sodium 135 L Carbon Dioxide 21 L BUN Creatinine 0.4 L 0.4 L Albumin 3.6 L Urine Creatinine 07/14/20 07/15/20 07/18/20 16:12 07:42 15:12 MCV MCH 27 L Plt Count Sodium Carbon Dioxide BUN Creatinine Albumin Urine Creatinine 87.0 H 87.0 H 07/21/20 07/21/20 07/25/20 07:26 07:26 09:08 MCV 78 L 78 L MCH 26 L 27 L Plt Count 135 L Sodium Carbon Dioxide BUN Creatinine 0.4 L Albumin Urine Creatinine 07/25/20 07/26/20 07/26/20 21:24 05:41 18:53 MCV MCH 26 L 26 L Plt Count 136 L Sodium Carbon Dioxide BUN Creatinine 0.4 L Albumin Urine Creatinine 07/26/20 07/27/20 18:53 07:00 MCV MCH Plt Count Sodium 136 L Carbon Dioxide BUN 6 L Creatinine 0.4 L Albumin 3.4 L Urine Creatinine 102.4 H Laboratory Results - last 24 hr 07/27/20 07/27/20 07:00 07:00 Urine Total Volume 1600 1600 Urine Creatinine 102.4 H Height (in) 63.0 Weight (lb) 221.0 Creatinine Clearance 244 Ur Total Protein 24 Hr 144.00 Urine Total Protein 9
--- NOTE | 2020-07-29 07:56 | Progress Note ---
Assessment and Plan - Patient Problems (1) Chronic hypertension affecting Onset Date: ~07/21/20 Current Visit: Yes Status: Acute Plan to address problem: No evidence of preeclampsia. 24 hour urine on 07/28 was 144 mg. Currently on labetalol 300 mg bid and nifedipine 60 mg daily. Blood pressures remain normal to mild range. Evaluate preeclampsia labs at least once a week. (2) Intrauterine growth restriction (IUGR) affecting care of mother, third trimester, single gestation Onset Date: ~07/16/20 Current Visit: Yes Status: Acute Plan to address problem: EFW on 07/21 3#6, 1%. Radiology ultrasound on 07/28: BPP 12/28. Normal UA Dopplers. BEN, 7.3 cm. EFM QID for at least 1 hour. BPP and UA Dopplers twice a week (Mon and Thurs) Repeat growth on or after 08/04. Ongoing inpatient expectant management is recommended secondary to CHTN requiring 2 medications, IUGR, and currently low normal BEN with history of oligohydramnios. In addition, patient has voiced that she feels uncomfortable with outpatient expectant management. Delivery is recommended between 34.0 and 37.0 weeks. (3) Oligohydramnios in third trimester Onset Date: ~07/15/20 Current Visit: Yes Status: Resolved Qualifiers: Fetus number: single or unspecified fetus Qualified Code(s): O41.03X0 - Oligohydramnios, third trimester, not applicable or unspecified Plan to address problem: Resolved on 07/21 ultrasound. BEN was 8.5 cm. However, BEN on 07/28 was 7.3 cm. (4) 34 weeks gestation of Current Visit: Yes Status: Acute (5) Thrombocytopenia affecting Current Visit: Yes Status: Acute Plan to address problem: Most likely, gestational. Platelets 141k on 07/26. Subjective - Subjective Principal diagnosis: IUP 34wk4d (EDC 09-05-20); CHTN, IUGR Patient reports: movement normal, other (Denies s/s of preeclampsia), no new complaints, no loss of fluid, no vaginal bleeding, no contractions Objective - Vital Signs Vital Signs: Vital Signs - 12hr 07/28/20 22:07 Pulse Rate 86 Blood Pressure 119/73 - Exam FHR: category 1 (120s, category I reactive) - Labs Labs: Abnormal Labs 07/14/20 07/14/20 07/14/20 13:46 13:46 13:46 MCV MCH 27 L Plt Count Sodium 135 L Carbon Dioxide 21 L BUN Creatinine 0.4 L 0.4 L Albumin 3.6 L Urine Creatinine 07/14/20 07/15/20 07/18/20 16:12 07:42 15:12 MCV MCH 27 L Plt Count Sodium Carbon Dioxide BUN Creatinine Albumin Urine Creatinine 87.0 H 87.0 H 07/21/20 07/21/20 07/25/20 07:26 07:26 09:08 MCV 78 L 78 L MCH 26 L 27 L Plt Count 135 L Sodium Carbon Dioxide BUN Creatinine 0.4 L Albumin Urine Creatinine 07/25/20 07/26/20 07/26/20 21:24 05:41 18:53 MCV MCH 26 L 26 L Plt Count 136 L Sodium Carbon Dioxide BUN Creatinine 0.4 L Albumin Urine Creatinine 07/26/20 07/27/20 18:53 07:00 MCV MCH Plt Count Sodium 136 L Carbon Dioxide BUN 6 L Creatinine 0.4 L Albumin 3.4 L Urine Creatinine 102.4 H Laboratory Results - last 24 hr 07/27/20 07/27/20 07:00 07:00 Urine Total Volume 1600 1600 Urine Creatinine 102.4 H Height (in) 63.0 Weight (lb) 221.0 Creatinine Clearance 244 Ur Total Protein 24 Hr 144.00 Urine Total Protein 9
--- NOTE | 2020-07-29 08:15 | Event Note ---
Date: 07/29/20 (Dr. Acuna at bedside) Spoke with Dr. Acuna regarding patient and possible discharge home. Per Dr. Acuna, recommend continued inpatient management. Also patient states that at this time, she is very uncomfortable going home given her "fluids have been up and down. I am very worried about my baby and going home." Explained to patient that she will not be sent home at this time. Also spoke with Dr. Acuna regarding EFM. Will allow NST for an hour 4 times a day. Pt given kick count instructions and she verbalized understanding.
[2020-07-29] MEDS: PRENATAL VIT27-FE FUMARATE-FOLIC ACID VIT TAB PO SCH (10:07)
[2020-07-29] MEDS: ASPIRIN EC 81 MG TAB PO SCH (10:08)
[2020-07-29] MEDS: NIFEdipine XL 60 MG TAB PO SCH (10:08)
[2020-07-29] MEDS: ONDANSETRON 4 MG/2 ML INJ IV PRN (19:18)
--- NOTE | 2020-07-30 07:28 | Progress Note ---
Assessment and Plan Patient in good spirits, denies VELAZQUEZ/visual changes/ epigastric pain, ctx, SROM or vag bleeding. She is OOB for AM care. All questions addressed, encouraged pt to have lunch in garden today. A: 1. IUP at 34+5 weeks gestation s/p BMZ 07/08- 2.IUGR diagnosed on 07/07 at [facility] was 3#5, 9%. AC 4%. 3lb 6 oz 1% (07/21/20) 3.CHTN with exacerbation ruled out for preeclampsia Currently on Labetalol 300 mg TID and Procardia 60 mg weekly 24hr urine, 07/28 TP 144 4.Oligohydramnios - resolved 5. Breech - c/s planned for 37+0 Recommendations from [facility]: 1. Monitor for distress, worsening maternal HTN 2. Twice weekly BPP /Doppler/4 quadrant BEN 3. Growth q2 weeks on or after 08/04 4. NST q6hrs 5. Continue current antihypertensive regimen, titrate to maintain BP 120-160/80-105mmhg 6. Weekly 24hr urine, delivery if TP>/= 300 7. Weekly pre-e labs 8. Delivery at 34 0/ -37 67 - Patient Problems (1) Intrauterine growth restriction (IUGR) affecting care of mother, third trimester, single gestation Onset Date: ~07/16/20 Current Visit: Yes Status: Acute (2) Oligohydramnios in third trimester Onset Date: ~07/15/20 Current Visit: Yes Status: Resolved Qualifiers: Fetus number: single or unspecified fetus Qualified Code(s): O41.03X0 - Oligohydramnios, third trimester, not applicable or unspecified (3) Chronic hypertension affecting Onset Date: ~07/21/20 Current Visit: Yes Status: Acute (4) 34 weeks gestation of Current Visit: Yes Status: Acute Subjective - Subjective Date of service: 07/30/20 Principal diagnosis: IUP 34wk5d (EDC 09-05-20); CHTN, IUGR Patient reports: movement normal, no new complaints, no loss of fluid, no vaginal bleeding, no contractions Objective - Vital Signs Vital Signs: Vital Signs - 12hr 07/29/20 07/29/20 07/30/20 22:03 22:04 03:04 Temperature Pulse Rate 81 81 82 Blood Pressure 131/83 131/83 129/87 07/30/20 07/30/20 03:05 05:54 Temperature 98.4 F Pulse Rate 80 Blood Pressure 126/82 - Labs Labs: Abnormal Labs 07/14/20 07/14/20 07/14/20 13:46 13:46 13:46 MCV MCH 27 L Plt Count Sodium 135 L Carbon Dioxide 21 L BUN Creatinine 0.4 L 0.4 L Albumin 3.6 L Urine Creatinine 07/14/20 07/15/20 07/18/20 16:12 07:42 15:12 MCV MCH 27 L Plt Count Sodium Carbon Dioxide BUN Creatinine Albumin Urine Creatinine 87.0 H 87.0 H 07/21/20 07/21/20 07/25/20 07:26 07:26 09:08 MCV 78 L 78 L MCH 26 L 27 L Plt Count 135 L Sodium Carbon Dioxide BUN Creatinine 0.4 L Albumin Urine Creatinine 07/25/20 07/26/20 07/26/20 21:24 05:41 18:53 MCV MCH 26 L 26 L Plt Count 136 L Sodium Carbon Dioxide BUN Creatinine 0.4 L Albumin Urine Creatinine 07/26/20 07/27/20 18:53 07:00 MCV MCH Plt Count Sodium 136 L Carbon Dioxide BUN 6 L Creatinine 0.4 L Albumin 3.4 L Urine Creatinine 102.4 H
[2020-07-30] MEDS: PRENATAL VIT27-FE FUMARATE-FOLIC ACID VIT TAB PO SCH (09:17)
[2020-07-30] MEDS: NIFEdipine XL 60 MG TAB PO SCH (10:07)
[2020-07-30] MEDS: ASPIRIN EC 81 MG TAB PO SCH (10:07)
--- NOTE | 2020-07-31 05:06 | Progress Note ---
Assessment and Plan 35yo @ 34w5d in good spirits, states she has rested well, and voices that going to the garden makes her feel much better. evaluation ordered for this AM. PreE labs ordered for today also. Continue POC Consult with Dr Ryan - Patient Problems (1) Chronic hypertension affecting Onset Date: ~07/21/20 Current Visit: Yes Status: Acute Plan to address problem: No evidence of preeclampsia. 24 hour urine on 07/28 was 144 mg. Currently on labetalol 300 mg bid and Procardia 60 mg daily. Blood pressures remain normal to mild range. Evaluate preeclampsia labs at least once a week. PI labs ordered for today 07-31-20 (2) Intrauterine growth restriction (IUGR) affecting care of mother, third trimester, single gestation Onset Date: ~07/16/20 Current Visit: Yes Status: Acute Plan to address problem: EFW on 07/21 3#6, 1%. Radiology ultrasound on 07/28: BPP 12/28. Normal UA Dopplers. BEN, 7.3 cm. EFM QID for at least 1 hour. BPP and UA Dopplers twice a week (Mon and Thurs) Repeat growth on or after 08/04. Ongoing inpatient expectant management is recommended secondary to CHTN requiring 2 medications, IUGR, and currently low normal BEN with history of oligohydramnios. In addition, patient has voiced that she feels uncomfortable with outpatient expectant management. Delivery is recommended between 34.0 and 37.0 weeks. (3) Oligohydramnios in third trimester Onset Date: ~07/15/20 Current Visit: Yes Status: Resolved Qualifiers: Fetus number: single or unspecified fetus Qualified Code(s): O41.03X0 - Oligohydramnios, third trimester, not applicable or unspecified Plan to address problem: Resolved on 07/21 ultrasound. BEN was 8.5 cm. However, BEN on 07/28 was 7.3 cm. Pt encouraged with hydration, monitor FKC Report to the RN if she feels any change (4) Thrombocytopenia affecting Onset Date: ~07/30/20 Current Visit: Yes Status: Acute Plan to address problem: Per AMFM Most likely, gestational. Platelets 141k on 07/26. Repeat CBC ordered for today Subjective - Subjective Date of service: 07/31/20 ("I really love going to the [employer].") Principal diagnosis: IUP 34w6d (EDC 09-05-20); CHTN, IUGR, Gestational Thrombocytopenia Patient reports: movement normal, no new complaints, no loss of fluid, no vaginal bleeding, no contractions Objective - Vital Signs Vital Signs: Vital Signs - 12hr 07/30/20 07/30/20 07/30/20 19:51 19:55 19:56 Pulse Rate 43 L 82 60 Blood Pressure 121/80 O2 Sat by Pulse 80 L 74 L Oximetry 07/30/20 07/30/20 07/30/20 20:01 20:06 20:11 Pulse Rate 84 85 94 H Blood Pressure O2 Sat by Pulse 98 99 99 Oximetry 07/30/20 07/30/20 07/30/20 20:16 20:21 20:26 Pulse Rate 95 H 86 79 Blood Pressure O2 Sat by Pulse 99 99 100 Oximetry 07/30/20 07/30/20 07/30/20 20:31 20:36 20:41 Pulse Rate 86 79 79 Blood Pressure O2 Sat by Pulse 99 98 99 Oximetry 07/30/20 07/30/20 07/30/20 20:46 20:51 20:56 Pulse Rate 78 90 86 Blood Pressure O2 Sat by Pulse 98 99 98 Oximetry 07/30/20 07/30/20 07/30/20 21:01 21:06 21:11 Pulse Rate 89 84 85 Blood Pressure O2 Sat by Pulse 99 98 100 Oximetry 07/30/20 07/30/20 07/30/20 21:16 21:21 21:26 Pulse Rate 87 83 83 Blood Pressure O2 Sat by Pulse 99 98 99 Oximetry 07/30/20 07/30/20 07/30/20 21:31 21:34 21:48 Pulse Rate 79 77 86 Blood Pressure 134/83 O2 Sat by Pulse 99 90 Oximetry 07/30/20 07/30/20 21:49 21:51 Pulse Rate 86 86 Blood Pressure 134/83 134/83 O2 Sat by Pulse Oximetry - Exam Breasts: deferred Abdomen: Present: normal appearance, soft. Absent: distention, tenderness Uterus: Present: normal FHR: auscultation normal Uterine Contraction Pattern: Absent Extremities: normal Deep Tendon Reflex Grade: Normal +2 - Labs Labs: Abnormal Labs 07/14/20 07/14/20 07/14/20 13:46 13:46 13:46 MCV MCH 27 L Plt Count Sodium 135 L Carbon Dioxide 21 L BUN Creatinine 0.4 L 0.4 L Albumin 3.6 L Urine Creatinine 07/14/20 07/15/20 07/18/20 16:12 07:42 15:12 MCV MCH 27 L Plt Count Sodium Carbon Dioxide BUN Creatinine Albumin Urine Creatinine 87.0 H 87.0 H 07/21/20 07/21/20 07/25/20 07:26 07:26 09:08 MCV 78 L 78 L MCH 26 L 27 L Plt Count 135 L Sodium Carbon Dioxide BUN Creatinine 0.4 L Albumin Urine Creatinine 07/25/20 07/26/20 07/26/20 21:24 05:41 18:53 MCV MCH 26 L 26 L Plt Count 136 L Sodium Carbon Dioxide BUN Creatinine 0.4 L Albumin Urine Creatinine 07/26/20 07/27/20 18:53 07:00 MCV MCH Plt Count Sodium 136 L Carbon Dioxide BUN 6 L Creatinine 0.4 L Albumin 3.4 L Urine Creatinine 102.4 H
[2020-07-31 07:49] LABS: Hematocrit 33.7 % (30.3-42.9); Hemoglobin 11.4 gm/dl (10.1-14.3); Mean Corpuscular HGB Conc 34 % (30-34); Mean Corpuscular Volume 78 fl (79-97); Red Blood Count 4.31 M/mm3 (3.65-5.03); Red Cell Distribution Width 14.3 % (13.2-15.2)
[2020-07-31 07:53] LABS: Platelet Count 174 K/mm3 (140-440)
--- NOTE | 2020-07-31 08:03 | Progress Note ---
Assessment and Plan A: 1. IUP at 34 6/7 weeks gestation s/p BMZ 07/08- 2.IUGR 3lb 6 oz 1% (07/21/20) 3.CHTN with exacerbation ruled out for preeclampsia Currently on Labetalol 300 mg bid and Procardia 60 mg 4.decreased BEN 07/28 7.3cm 5. gestational Thrombocytopenia plt [id number] ( 07/31) 6. Breech Recommendations: 1. Monitor for distress, worsening maternal HTN 2. Twice weekly BPP /Doppler/4 quadrant BEN 3. Growth q2 weeks (on or after 08/04) 4. Continuous monitoring 5. Continue current antihypertensive regimen, titrate to maintain BP 120-160/80-105mmhg 6. Delivery at 34 0/7 -37 6/7 Subjective - Subjective Date of service: 07/31/20 Principal diagnosis: IUP 34w6d ([facility] 09-05-20); CHTN, IUGR, Gestational Thrombocytopenia Interval history: No complaints denied contractions bleeding, LOF, abdominal pain VELAZQUEZ visual changes Patient reports: movement normal, no new complaints, no loss of fluid, no vaginal bleeding, no contractions Objective - Vital Signs Vital Signs: Vital Signs - 12hr 07/30/20 07/30/20 07/30/20 20:06 20:11 20:16 Temperature Pulse Rate 85 94 H 95 H Respiratory Rate Blood Pressure Blood Pressure [Left] O2 Sat by Pulse 99 99 99 Oximetry 07/30/20 07/30/20 07/30/20 20:21 20:26 20:31 Temperature Pulse Rate 86 79 86 Respiratory Rate Blood Pressure Blood Pressure [Left] O2 Sat by Pulse 99 100 99 Oximetry 07/30/20 07/30/20 07/30/20 20:36 20:41 20:46 Temperature Pulse Rate 79 79 78 Respiratory Rate Blood Pressure Blood Pressure [Left] O2 Sat by Pulse 98 99 98 Oximetry 07/30/20 07/30/20 07/30/20 20:51 20:56 21:01 Temperature Pulse Rate 90 86 89 Respiratory Rate Blood Pressure Blood Pressure [Left] O2 Sat by Pulse 99 98 99 Oximetry 07/30/20 07/30/20 07/30/20 21:06 21:11 21:16 Temperature Pulse Rate 84 85 87 Respiratory Rate Blood Pressure Blood Pressure [Left] O2 Sat by Pulse 98 100 99 Oximetry 07/30/20 07/30/20 07/30/20 21:21 21:26 21:31 Temperature Pulse Rate 83 83 79 Respiratory Rate Blood Pressure Blood Pressure [Left] O2 Sat by Pulse 98 99 99 Oximetry 07/30/20 07/30/20 07/30/20 21:34 21:48 21:49 Temperature Pulse Rate 77 86 86 Respiratory Rate Blood Pressure 134/83 134/83 Blood Pressure [Left] O2 Sat by Pulse 90 Oximetry 07/30/20 07/31/20 07/31/20 21:51 07:27 07:28 Temperature Pulse Rate 86 78 86 Respiratory Rate Blood Pressure 134/83 141/94 Blood Pressure [Left] O2 Sat by Pulse 99 Oximetry 07/31/20 07/31/20 07:29 07:30 Temperature 98.9 F Pulse Rate 78 78 Respiratory 18 Rate Blood Pressure 141/94 Blood Pressure 141/94 [Left] O2 Sat by Pulse 99 Oximetry - Exam Narrative Exam: standing at bedside Abdomen: Present: normal appearance Extremities: normal - Labs Labs: Abnormal Labs 07/14/20 07/14/20 07/14/20 13:46 13:46 13:46 MCV MCH 27 L Plt Count Sodium 135 L Carbon Dioxide 21 L BUN Creatinine 0.4 L 0.4 L Albumin 3.6 L Urine Creatinine 07/14/20 07/15/20 07/18/20 16:12 07:42 15:12 MCV MCH 27 L Plt Count Sodium Carbon Dioxide BUN Creatinine Albumin Urine Creatinine 87.0 H 87.0 H 07/21/20 07/21/20 07/25/20 07:26 07:26 09:08 MCV 78 L 78 L MCH 26 L 27 L Plt Count 135 L Sodium Carbon Dioxide BUN Creatinine 0.4 L Albumin Urine Creatinine 07/25/20 07/26/20 07/26/20 21:24 05:41 18:53 MCV MCH 26 L 26 L Plt Count 136 L Sodium Carbon Dioxide BUN Creatinine 0.4 L Albumin Urine Creatinine 07/26/20 07/27/20 07/31/20 18:53 07:00 07:12 MCV 78 L MCH 26 L Plt Count Sodium 136 L Carbon Dioxide BUN 6 L Creatinine 0.4 L Albumin 3.4 L Urine Creatinine 102.4 H Laboratory Results - last 24 hr 07/31/20 07:12 WBC 4.7 RBC 4.31 Hgb 11.4 Hct 33.7 MCV 78 L MCH 26 L MCHC 34 RDW 14.3 Plt Count 174
[2020-07-31 08:04] LABS: Alanine Aminotransferase 23 units/L (7-56); Uric Acid 4.4 mg/dL (3.5-7.6)
[2020-07-31] MEDS: NIFEdipine XL 60 MG TAB PO SCH (10:26)
[2020-07-31] MEDS: ASPIRIN EC 81 MG TAB PO SCH (10:26)
[2020-07-31] MEDS: PRENATAL VIT27-FE FUMARATE-FOLIC ACID VIT TAB PO SCH (10:26)
[2020-07-31 13:58] LABS: Mucus,Urine FEW /HPF
[2020-07-31 14:04] LABS: Bacteria,Urine 1+ /HPF (Negative); Bilirubin,Urine NEG (Negative); Blood,Urine NEG (Negative); Color,Urine Yellow (Yellow); Urobilinogen,Urine < 2.0 mg/dL (<2.0)
[2020-07-31] MEDS: ONDANSETRON 4 MG/2 ML INJ IV PRN ×2 (14:33→21:56)
--- NOTE | 2020-07-31 15:21 | Ultrasound Report ---
US OB BPP wo non-stress, US OB limited INDICATION: BPP, BEN, doppler studies. TECHNIQUE: Transabdominal. COMPARISON: None available. FINDINGS: There is a single intrauterine . Heart Rate: 136 beats per minute. Position: breech. Amniotic Fluid Volume: decreased Amniotic Fluid Index (BEN) in cm (if calculated): 5.1. Biophysical Profile: breathing movements: 2 movements:2 posture and tone:2 Qualitative amniotic fluid volume: 2 IMPRESSION: 1. Oligohydramnios. 2. Biophysical profile is 8 of 8 Signer Name: Te Lam MD Signed: 07/31/2020 3:17 PM Workstation Name: [employer] [email or web address] [id number]
--- NOTE | 2020-07-31 15:21 | Ultrasound Report ---
US OB BPP wo non-stress, US OB limited INDICATION: BPP, BEN, doppler studies. TECHNIQUE: Transabdominal. COMPARISON: None available. FINDINGS: There is a single intrauterine . Heart Rate: 136 beats per minute. Position: breech. Amniotic Fluid Volume: decreased Amniotic Fluid Index (BEN) in cm (if calculated): 5.1. Biophysical Profile: breathing movements: 2 movements:2 posture and tone:2 Qualitative amniotic fluid volume: 2 IMPRESSION: 1. Oligohydramnios. 2. Biophysical profile is 8 of 8 Signer Name: Te Lam MD Signed: 07/31/2020 3:17 PM Workstation Name: [email or web address] [id number]
--- NOTE | 2020-07-31 15:22 | Ultrasound Report ---
ULTRASOUND OB VELOCIMETRY UMBILICAL ARTERY HISTORY: Intrauterine growth restriction TECHNIQUE: Transabdominal ultrasound with color and spectral Doppler imaging COMPARISON: Ultrasound dated same day and 07/28/2020 FINDINGS: 3 segments of the umbilical cord were evaluated. heart rate measures 136 bpm. The spectral wave forms are normal and persistent. Average S/D ratio measures: 3.2 Average resistive index measures: 0.7 Signer Name: Te Lam MD Signed: 07/31/2020 3:18 PM Workstation Name: [employer]
--- NOTE | 2020-08-01 07:33 | Progress Note ---
Assessment and Plan denies VELAZQUEZ/visual changes/ epigastric pain, ctx, SROM or vag bleeding. A: 1. IUP at 35+0 weeks gestation s/p BMZ 07/08- 2.IUGR diagnosed on 07/07 at [facility] was 3#5, 9%. AC 4%. 3lb 6 oz 1% (07/21/20) 3.CHTN with exacerbation ruled out for preeclampsia Currently on Labetalol 300 mg TID and Procardia 60 mg weekly 24hr urine, 07/28 TP 144 4.Oligohydramnios - resolved 5. Breech - c/s planned for 37+0 Recommendations from [facility]: 1. Monitor for distress, worsening maternal HTN 2. Twice weekly BPP /Doppler/4 quadrant BEN 3. Growth q2 weeks on or after 08/04 4. NST q6hrs 5. Continue current antihypertensive regimen, titrate to maintain BP 120-160/80-105mmhg 6. Weekly 24hr urine, delivery if TP>/= 300 7. Weekly pre-e labs 8. Delivery at 34 -37 10/27 - Patient Problems (1) Intrauterine growth restriction (IUGR) affecting care of mother, third trimester, single gestation Onset Date: ~07/16/20 Current Visit: Yes Status: Acute (2) Oligohydramnios in third trimester Onset Date: ~07/15/20 Current Visit: Yes Status: Resolved Qualifiers: Fetus number: single or unspecified fetus Qualified Code(s): O41.03X0 - Oligohydramnios, third trimester, not applicable or unspecified (3) Chronic hypertension affecting Onset Date: ~07/21/20 Current Visit: Yes Status: Acute (4) 35 weeks gestation of Current Visit: Yes Status: Acute Subjective - Subjective Date of service: 08/01/20 Principal diagnosis: IUP 35w0d ([facility] 09-05-20); CHTN, IUGR, Gestational Thrombocytopenia Patient reports: movement normal, no new complaints, no loss of fluid, no vaginal bleeding, no contractions Objective - Vital Signs Vital Signs: Vital Signs - 12hr 07/31/20 07/31/20 07/31/20 21:52 21:53 23:57 Temperature 98.2 F Pulse Rate 78 78 Respiratory 18 Rate Blood Pressure 122/75 122/75 Blood Pressure [Left] 0308/01/20 08/01/20 04:00 06:06 06:07 Temperature 98.1 F Pulse Rate 80 80 Respiratory 18 Rate Blood Pressure 138/92 138/92 Blood Pressure [Left] 08/01/20 08/01/20 07:24 07:25 Temperature 98.3 F Pulse Rate 81 81 Respiratory 18 Rate Blood Pressure 136/92 Blood Pressure 136/92 [Left] - Exam Breasts: normal Cardiovascular: Regular rate Lungs: Normal air movement Abdomen: Present: normal appearance, soft. Absent: distention, tenderness Uterus: Present: normal, fundal height above umbilicus FHR: category 1 Uterine Contraction Monitor Mode: Palpation Uterine Tone Measurement Phase: Resting Extremities: normal Deep Tendon Reflex Grade: Normal +2 - Labs Labs: Abnormal Labs 07/14/20 07/14/20 07/14/20 13:46 13:46 13:46 MCV MCH 27 L Plt Count Sodium 135 L Carbon Dioxide 21 L BUN Creatinine 0.4 L 0.4 L Albumin 3.6 L Urine Creatinine 07/14/20 07/15/20 07/18/20 16:12 07:42 15:12 MCV MCH 27 L Plt Count Sodium Carbon Dioxide BUN Creatinine Albumin Urine Creatinine 87.0 H 87.0 H 07/21/20 07/21/20 07/25/20 07:26 07:26 09:08 MCV 78 L 78 L MCH 26 L 27 L Plt Count 135 L Sodium Carbon Dioxide BUN Creatinine 0.4 L Albumin Urine Creatinine 07/25/20 07/26/20 07/26/20 21:24 05:41 18:53 MCV MCH 26 L 26 L Plt Count 136 L Sodium Carbon Dioxide BUN Creatinine 0.4 L Albumin Urine Creatinine 07/26/20 07/27/20 07/31/20 18:53 07:00 07:12 MCV 78 L MCH 26 L Plt Count Sodium 136 L Carbon Dioxide BUN 6 L Creatinine 0.4 L Albumin 3.4 L Urine Creatinine 102.4 H 07/31/20 07:12 MCV MCH Plt Count Sodium Carbon Dioxide BUN Creatinine 0.5 L Albumin Urine Creatinine Laboratory Results - last 24 hr 07/31/20 07/31/20 07/31/20 07:12 07:12 13:42 WBC 4.7 RBC 4.31 Hgb 11.4 Hct 33.7 MCV 78 L MCH 26 L MCHC 34 RDW 14.3 Plt Count 174 Creatinine 0.5 L Estimated GFR > 60 Uric Acid 4.4 AST 23 ALT 23 Lactate Dehydrogenase 165 Urine Color Yellow Urine Turbidity Slightly-cloudy Urine pH 7.0 Ur Specific [place] 1.017 Urine Protein 30 mg/dl Urine Glucose (UA) Neg Urine Ketones Neg Urine Blood Neg Urine Nitrite Neg Ur Reducing Substances Not Reportable Urine Bilirubin Neg Urine Ictotest Not Reportable Urine Urobilinogen < 2.0 Ur Leukocyte Esterase Neg Urine WBC (Auto) 2.0 Urine RBC (Auto) 1.0 U Epithel Cells (Auto) 13.0 Urine Bacteria (Auto) 1+ Urine Mucus Few
[2020-08-01] MEDS: NIFEdipine XL 60 MG TAB PO SCH (10:05)
[2020-08-01] MEDS: ASPIRIN EC 81 MG TAB PO SCH (10:05)
[2020-08-01] MEDS: PRENATAL VIT27-FE FUMARATE-FOLIC ACID VIT TAB PO SCH (10:05)
[2020-08-01] MEDS: ONDANSETRON 4 MG/2 ML INJ IV PRN (10:13)
[2020-08-01] MEDS: ONDANSETRON 4 MG ODT TAB PO PRN (22:06)
--- NOTE | 2020-08-02 08:53 | Progress Note ---
<AYANNA LIRA - Last Filed: 08/02/20 11:04> Assessment and Plan A: 35 y.o. @ 35.1 wks with cHTN, IUGR, Oligohydramnios. - Patient Problems (1) Intrauterine growth restriction (IUGR) affecting care of mother, third trimester, single gestation Onset Date: ~07/16/20 Current Visit: Yes Status: Acute Plan to address problem: EFW on 07/21 3#6, 1%. Repeat growth u/s ordered for 08/04. BPP on 07/31 8/. BEN 5.1, UA dopplers normal. EFM q 6 hrs for at least 1 hour. Has been category 1, no ctxs noted. BPP and UA Dopplers twice a week (Mon and Thurs) Ongoing inpatient expectant management is recommended secondary to CHTN requiring 2 medications, IUGR, and oligohydramnios. Delivery is recommended between 34.0 and 37.0 weeks. to be scheduled for @ 37 wks. Currently in breech presentation. (2) Chronic hypertension affecting Onset Date: ~07/21/20 Current Visit: Yes Status: Acute Plan to address problem: CHTN with exacerbation ruled out for preeclampsia Currently on Labetalol 300 mg bid and Procardia 60 mg (3) Thrombocytopenia affecting Onset Date: ~07/30/20 Current Visit: Yes Status: Acute Plan to address problem: Platelet count: 07/25: 135 3/6 @ 0541 136 3/6 @ 1853 141 07/31 174 Will continue to monitor. (4) Oligohydramnios in third trimester Onset Date: ~07/15/20 Current Visit: Yes Status: Acute Qualifiers: Fetus number: single or unspecified fetus Qualified Code(s): O41.03X0 - Oligohydramnios, third trimester, not applicable or unspecified Plan to address problem: BEN on 07/31 was 5.1. BPP with full BEN ordered for 08/04. Subjective - Subjective Date of service: 08/02/20 Principal diagnosis: IUP 35w1d ([facility]C 09-05-20); CHTN, IUGR, Gestational Thrombocytopenia Patient reports: movement normal, no new complaints, no loss of fluid, no vaginal bleeding, no contractions Objective - Vital Signs Vital Signs: Vital Signs - 12hr 08/01/20 08/02/20 21:52 06:16 Temperature 98.5 F 98.7 F Pulse Rate 81 82 Respiratory 20 18 Rate Blood Pressure 117/71 141/93 - Exam Narrative Exam: Pt denies VELAZQUEZ, blurred vision, spots before her eyes, chest pain, shortness of breath, upper abdominal pain, vaginal bleeding, ctxs, and LOF. We discussed should any of these symptoms occur to tell the RN immediately. Pt verbalized understanding. Breasts: deferred Cardiovascular: Regular rate Lungs: Normal air movement Abdomen: Present: normal appearance FHR: category 1 Uterine Contraction Monitor Mode: External Uterine Contraction Pattern: Absent Extremities: normal - Labs Labs: Abnormal Labs 07/14/20 07/14/20 07/14/20 13:46 13:46 13:46 MCV MCH 27 L Plt Count Sodium 135 L Carbon Dioxide 21 L BUN Creatinine 0.4 L 0.4 L Albumin 3.6 L Urine Creatinine 07/14/20 07/15/20 07/18/20 16:12 07:42 15:12 MCV MCH 27 L Plt Count Sodium Carbon Dioxide BUN Creatinine Albumin Urine Creatinine 87.0 H 87.0 H 07/21/20 07/21/20 07/25/20 07:26 07:26 09:08 MCV 78 L 78 L MCH 26 L 27 L Plt Count 135 L Sodium Carbon Dioxide BUN Creatinine 0.4 L Albumin Urine Creatinine 07/25/20 07/26/20 07/26/20 21:24 05:41 18:53 MCV MCH 26 L 26 L Plt Count 136 L Sodium Carbon Dioxide BUN Creatinine 0.4 L Albumin Urine Creatinine 07/26/20 07/27/20 07/31/20 18:53 07:00 07:12 MCV 78 L MCH 26 L Plt Count Sodium 136 L Carbon Dioxide BUN 6 L Creatinine 0.4 L Albumin 3.4 L Urine Creatinine 102.4 H 07/31/20 07:12 MCV MCH Plt Count Sodium Carbon Dioxide BUN Creatinine 0.5 L Albumin Urine Creatinine <WEI VARELA - Last Filed: 08/02/20 12:43> Assessment and Plan Patient is currently on Labetalol 300mg q8hr and Procardia 60XL daily. C/S planned for 08/15 @ 37 weeks - Patient Problems (1) 34 weeks gestation of Current Visit: Yes Status: Acute (2) Chronic hypertension affecting Onset Date: ~07/21/20 Current Visit: Yes Status: Acute (3) Intrauterine growth restriction (IUGR) affecting care of mother, third trimester, single gestation Onset Date: ~07/16/20 Current Visit: Yes Status: Acute (4) Oligohydramnios in third trimester Onset Date: ~07/15/20 Current Visit: Yes Status: Acute Qualifiers: Fetus number: single or unspecified fetus Qualified Code(s): O41.03X0 - Oligohydramnios, third trimester, not applicable or unspecified Objective - Vital Signs Vital Signs: Vital Signs - 12hr 08/02/20 08/02/20 08/02/20 06:16 09:28 09:29 Temperature 98.7 F 98.6 F Pulse Rate 82 82 82 Respiratory 18 14 Rate Blood Pressure 141/93 134/88 Blood Pressure 134/88 [Right] O2 Sat by Pulse 99 Oximetry - Labs Labs: Abnormal Labs 07/14/20 07/14/20 07/14/20 13:46 13:46 13:46 MCV MCH 27 L Plt Count Sodium 135 L Carbon Dioxide 21 L BUN Creatinine 0.4 L 0.4 L Albumin 3.6 L Urine Creatinine 07/14/20 07/15/20 07/18/20 16:12 07:42 15:12 MCV MCH 27 L Plt Count Sodium Carbon Dioxide BUN Creatinine Albumin Urine Creatinine 87.0 H 87.0 H 07/21/20 07/21/20 07/25/20 07:26 07:26 09:08 MCV 78 L 78 L MCH 26 L 27 L Plt Count 135 L Sodium Carbon Dioxide BUN Creatinine 0.4 L Albumin Urine Creatinine 07/25/20 07/26/20 07/26/20 21:24 05:41 18:53 MCV MCH 26 L 26 L Plt Count 136 L Sodium Carbon Dioxide BUN Creatinine 0.4 L Albumin Urine Creatinine 07/26/20 07/27/20 07/31/20 18:53 07:00 07:12 MCV 78 L MCH 26 L Plt Count Sodium 136 L Carbon Dioxide BUN 6 L Creatinine 0.4 L Albumin 3.4 L Urine Creatinine 102.4 H 07/31/20 07:12 MCV MCH Plt Count Sodium Carbon Dioxide BUN Creatinine 0.5 L Albumin Urine Creatinine
[2020-08-02] MEDS: ASPIRIN EC 81 MG TAB PO SCH (09:37)
[2020-08-02] MEDS: NIFEdipine XL 60 MG TAB PO SCH (09:38)
[2020-08-02] MEDS: PRENATAL VIT27-FE FUMARATE-FOLIC ACID VIT TAB PO SCH (09:38)
[2020-08-02] MEDS: ONDANSETRON 4 MG ODT TAB PO PRN (17:12)
[2020-08-02] MEDS ORDERED: OXYTOCIN DRIP 0 MILLIUNITS/0 ML BAG IV ONE (18:02)
[2020-08-02] MEDS ORDERED: OXYTOCIN 10 UNIT/1 ML INJ ONE (18:04)
[2020-08-02] MEDS ORDERED: miSOPROStol 200 MCG TAB ONE (18:15)
[2020-08-03] MEDS: ONDANSETRON 4 MG ODT TAB PO PRN ×2 (03:12→14:25)
[2020-08-03] MEDS: PRENATAL VIT27-FE FUMARATE-FOLIC ACID VIT TAB PO SCH (09:10)
[2020-08-03] MEDS: NIFEdipine XL 60 MG TAB PO SCH (09:10)
[2020-08-03] MEDS: ASPIRIN EC 81 MG TAB PO SCH (09:10)
--- NOTE | 2020-08-03 09:28 | Progress Note ---
<AYANNA LIRA - Last Filed: 08/03/20 12:02> Assessment and Plan A: 35 y.o. @ 35.2 wks, cHTN, IUGR, Oligohydramnios. - Patient Problems (1) Intrauterine growth restriction (IUGR) affecting care of mother, third trimester, single gestation Onset Date: ~07/16/20 Current Visit: Yes Status: Acute Plan to address problem: EFW on 07/21 3#6, 1%. Repeat growth u/s ordered for 08/04. BPP on 07/31 8/. BEN 5.1, UA dopplers normal. EFM q 6 hrs for at least 1 hour. Has been category 1, no ctxs noted. BPP and UA Dopplers twice a week: Ordered for 08/07 Ongoing inpatient expectant management is recommended secondary to CHTN requiring 2 medications, IUGR, and oligohydramnios. Delivery is recommended between 34.0 and 37.0 weeks. to be scheduled for @ 37 wks. Currently in breech presentation. (2) Chronic hypertension affecting Onset Date: ~07/21/20 Current Visit: Yes Status: Acute Plan to address problem: CHTN with exacerbation Ruled out for preeclampsia Continue with Labetalol 300 mg bid and Procardia 60 mg Monitor pre eclampsia labs at least once a week. Ordered for 08/07. (3) Thrombocytopenia affecting Onset Date: ~07/30/20 Current Visit: Yes Status: Acute Plan to address problem: Platelet count on 07/31 174. Will continue to monitor. (4) Oligohydramnios in third trimester Onset Date: ~07/15/20 Current Visit: Yes Status: Acute Qualifiers: Fetus number: single or unspecified fetus Qualified Code(s): O41.03X0 - Oligohydramnios, third trimester, not applicable or unspecified Plan to address problem: Current BEN 5.1 on 07/31.. BEN will be repeated on 08/04. Subjective - Subjective Date of service: 08/03/20 (Pt states she is doing well today. ) Principal diagnosis: IUP 35w2d (EDC 09-05-20); CHTN, IUGR, Gestational Thrombocytopenia Patient reports: movement normal, no new complaints, no loss of fluid, no vaginal bleeding, no contractions Objective - Vital Signs Vital Signs: Vital Signs - 12hr 08/02/20 08/02/20 08/02/20 23:31 23:32 23:34 Temperature 98.6 F Pulse Rate 85 85 75 Respiratory 17 Rate Blood Pressure 193/99 154/93 Blood Pressure 154/93 [Left] O2 Sat by Pulse Oximetry 08/02/20 08/03/20 08/03/20 23:35 05:24 05:26 Temperature 98.6 F Pulse Rate 75 78 Respiratory 16 Rate Blood Pressure 154/93 134/94 Blood Pressure [Left] O2 Sat by Pulse Oximetry 08/03/20 08/03/20 08/03/20 06:21 06:22 06:23 Temperature Pulse Rate 75 75 75 Respiratory Rate Blood Pressure 131/82 131/82 131/82 Blood Pressure [Left] O2 Sat by Pulse Oximetry 08/03/20 08/03/20 06:49 06:50 Temperature 98.3 F Pulse Rate 81 87 Respiratory 18 Rate Blood Pressure 124/86 Blood Pressure 124/86 [Left] O2 Sat by Pulse 98 98 Oximetry - Exam Narrative Exam: Pt denies VELAZQUEZ, blurred vision, spots before her eyes, chest pain, shortness of breath, and upper abdominal pain. We discussed should any of these symptoms occur to let the RN know immediately. Breasts: deferred Cardiovascular: Regular rate Lungs: Normal air movement Abdomen: Present: normal appearance Uterus: Present: normal FHR: category 1 Uterine Contraction Monitor Mode: External Uterine Contraction Pattern: Absent Extremities: normal - Labs Labs: Abnormal Labs 07/14/20 07/14/20 07/14/20 13:46 13:46 13:46 MCV MCH 27 L Plt Count Sodium 135 L Carbon Dioxide 21 L BUN Creatinine 0.4 L 0.4 L Albumin 3.6 L Urine Creatinine 07/14/20 07/15/20 07/18/20 16:12 07:42 15:12 MCV MCH 27 L Plt Count Sodium Carbon Dioxide BUN Creatinine Albumin Urine Creatinine 87.0 H 87.0 H 07/21/20 07/21/20 07/25/20 07:26 07:26 09:08 MCV 78 L 78 L MCH 26 L 27 L Plt Count 135 L Sodium Carbon Dioxide BUN Creatinine 0.4 L Albumin Urine Creatinine 07/25/20 07/26/20 07/26/20 21:24 05:41 18:53 MCV MCH 26 L 26 L Plt Count 136 L Sodium Carbon Dioxide BUN Creatinine 0.4 L Albumin Urine Creatinine 07/26/20 07/27/20 07/31/20 18:53 07:00 07:12 MCV 78 L MCH 26 L Plt Count Sodium 136 L Carbon Dioxide BUN 6 L Creatinine 0.4 L Albumin 3.4 L Urine Creatinine 102.4 H 07/31/20 07:12 MCV MCH Plt Count Sodium Carbon Dioxide BUN Creatinine 0.5 L Albumin Urine Creatinine <WEI VARELA D - Last Filed: 08/03/20 14:55> Assessment and Plan Patient is on labetalol 300mg q8hr and Procardia XL 60 qd - Patient Problems (1) 34 weeks gestation of Current Visit: Yes Status: Acute (2) Chronic hypertension affecting Onset Date: ~07/21/20 Current Visit: Yes Status: Acute (3) Intrauterine growth restriction (IUGR) affecting care of mother, third trimester, single gestation Onset Date: ~07/16/20 Current Visit: Yes Status: Acute (4) Oligohydramnios in third trimester Onset Date: ~07/15/20 Current Visit: Yes Status: Acute Qualifiers: Fetus number: single or unspecified fetus Qualified Code(s): O41.03X0 - Oligohydramnios, third trimester, not applicable or unspecified Objective - Vital Signs Vital Signs: Vital Signs - 12hr 08/03/20 08/03/20 08/03/20 05:24 05:26 06:21 Temperature 98.6 F Pulse Rate 78 75 Respiratory 16 Rate Blood Pressure 134/94 131/82 Blood Pressure [Left] O2 Sat by Pulse Oximetry 08/03/20 08/03/20 08/03/20 06:22 06:23 06:49 Temperature 98.3 F Pulse Rate 75 75 81 Respiratory 18 Rate Blood Pressure 131/82 131/82 124/86 Blood Pressure 124/86 [Left] O2 Sat by Pulse 98 Oximetry 08/03/20 08/03/20 08/03/20 06:50 11:00 12:02 Temperature 97.9 F Pulse Rate 87 81 Respiratory Rate Blood Pressure 118/76 Blood Pressure [Left] O2 Sat by Pulse 98 95 Oximetry 08/03/20 08/03/20 08/03/20 12:07 12:12 12:17 Temperature Pulse Rate 80 78 81 Respiratory Rate Blood Pressure Blood Pressure [Left] O2 Sat by Pulse 100 99 100 Oximetry 08/03/20 08/03/20 08/03/20 12:22 12:27 12:32 Temperature Pulse Rate 77 76 77 Respiratory Rate Blood Pressure Blood Pressure [Left] O2 Sat by Pulse 99 98 99 Oximetry 08/03/20 08/03/20 08/03/20 12:37 12:42 12:47 Temperature Pulse Rate 78 75 74 Respiratory Rate Blood Pressure Blood Pressure [Left] O2 Sat by Pulse 99 98 99 Oximetry 08/03/20 08/03/20 08/03/20 12:52 12:57 13:02 Temperature Pulse Rate 74 75 80 Respiratory Rate Blood Pressure Blood Pressure [Left] O2 Sat by Pulse 99 98 98 Oximetry 08/03/20 08/03/20 08/03/20 13:06 13:07 13:08 Temperature Pulse Rate 80 80 80 Respiratory Rate Blood Pressure 122/80 120/80 120/80 Blood Pressure [Left] O2 Sat by Pulse Oximetry - Labs Labs: Abnormal Labs 07/14/20 07/14/20 07/14/20 13:46 13:46 13:46 MCV MCH 27 L Plt Count Sodium 135 L Carbon Dioxide 21 L BUN Creatinine 0.4 L 0.4 L Albumin 3.6 L Urine Creatinine 07/14/20 07/15/20 07/18/20 16:12 07:42 15:12 MCV MCH 27 L Plt Count Sodium Carbon Dioxide BUN Creatinine Albumin Urine Creatinine 87.0 H 87.0 H 07/21/20 07/21/20 07/25/20 07:26 07:26 09:08 MCV 78 L 78 L MCH 26 L 27 L Plt Count 135 L Sodium Carbon Dioxide BUN Creatinine 0.4 L Albumin Urine Creatinine 07/25/20 07/26/20 07/26/20 21:24 05:41 18:53 MCV MCH 26 L 26 L Plt Count 136 L Sodium Carbon Dioxide BUN Creatinine 0.4 L Albumin Urine Creatinine 07/26/20 07/27/20 07/31/20 18:53 07:00 07:12 MCV 78 L MCH 26 L Plt Count Sodium 136 L Carbon Dioxide BUN 6 L Creatinine 0.4 L Albumin 3.4 L Urine Creatinine 102.4 H 07/31/20 07:12 MCV MCH Plt Count Sodium Carbon Dioxide BUN Creatinine 0.5 L Albumin Urine Creatinine
--- NOTE | 2020-08-03 14:34 | Progress Note ---
Assessment and Plan - Patient Problems (1) Chronic hypertension affecting Onset Date: ~07/21/20 Current Visit: Yes Status: Acute Plan to address problem: No evidence of preeclampsia. 24 hour urine on 07/28 was 144 mg. Currently on labetalol 300 mg bid and nifedipine 60 mg daily. Blood pressures remain normal to mild range. Evaluate preeclampsia labs at least once a week. (2) Intrauterine growth restriction (IUGR) affecting care of mother, third trimester, single gestation Onset Date: ~07/16/20 Current Visit: Yes Status: Acute Plan to address problem: EFW on 07/21 3#6, 1%. Radiology ultrasound on 07/31: BPP 12/28. Normal UA Dopplers. BEN, 5.1 cm. EFM QID for at least 1 hour. BPP and UA Dopplers twice a week (Mon and Thurs) Repeat growth on or after 08/04. Ongoing inpatient expectant management is recommended secondary to CHTN requiring 2 medications, IUGR, and currently low normal BEN with history of oligohydramnios. In addition, patient has voiced that she feels uncomfortable with outpatient expectant management. Delivery is recommended between 34.0 and 37.0 weeks. (3) Oligohydramnios in third trimester Onset Date: ~07/15/20 Current Visit: Yes Status: Acute Qualifiers: Fetus number: single or unspecified fetus Qualified Code(s): O41.03X0 - Oligohydramnios, third trimester, not applicable or unspecified Plan to address problem: BEN on 07/31 was 5.1 cm with normal UA Dopplers. Repeat ultrasound on 08/04 to evaluate growth, BPP, UA Dopplers, and BEN. If BEN is less than 5cm, recommend proceeding with delivery. (4) Thrombocytopenia affecting Onset Date: ~07/30/20 Current Visit: Yes Status: Acute Plan to address problem: Most likely, gestational. Platelets 174k on 07/31. (5) 35 weeks gestation of Current Visit: Yes Status: Acute Plan to address problem: Discussed how to perform kick counts and the signs and symptoms of labor. Subjective - Subjective Principal diagnosis: IUP 35w2d (EDC 09-05-20); CHTN, IUGR, Gestational Thrombocytopenia Patient reports: movement normal, other (Patient endorses nausea. Denies headaches or visual changes.), no new complaints, no loss of fluid, no vaginal bleeding, no contractions Objective - Vital Signs Vital Signs: Vital Signs - 12hr 08/03/20 08/03/20 08/03/20 05:24 05:26 06:21 Temperature 98.6 F Pulse Rate 78 75 Respiratory 16 Rate Blood Pressure 134/94 131/82 Blood Pressure [Left] O2 Sat by Pulse Oximetry 08/03/20 08/03/20 08/03/20 06:22 06:23 06:49 Temperature 98.3 F Pulse Rate 75 75 81 Respiratory 18 Rate Blood Pressure 131/82 131/82 124/86 Blood Pressure 124/86 [Left] O2 Sat by Pulse 98 Oximetry 08/03/20 08/03/20 08/03/20 06:50 11:00 12:02 Temperature 97.9 F Pulse Rate 87 81 Respiratory Rate Blood Pressure 118/76 Blood Pressure [Left] O2 Sat by Pulse 98 95 Oximetry 08/03/20 08/03/20 08/03/20 12:07 12:12 12:17 Temperature Pulse Rate 80 78 81 Respiratory Rate Blood Pressure Blood Pressure [Left] O2 Sat by Pulse 100 99 100 Oximetry 08/03/20 08/03/20 08/03/20 12:22 12:27 12:32 Temperature Pulse Rate 77 76 77 Respiratory Rate Blood Pressure Blood Pressure [Left] O2 Sat by Pulse 99 98 99 Oximetry 08/03/20 08/03/20 08/03/20 12:37 12:42 12:47 Temperature Pulse Rate 78 75 74 Respiratory Rate Blood Pressure Blood Pressure [Left] O2 Sat by Pulse 99 98 99 Oximetry 08/03/20 08/03/20 08/03/20 12:52 12:57 13:02 Temperature Pulse Rate 74 75 80 Respiratory Rate Blood Pressure Blood Pressure [Left] O2 Sat by Pulse 99 98 98 Oximetry 08/03/20 08/03/20 08/03/20 13:06 13:07 13:08 Temperature Pulse Rate 80 80 80 Respiratory Rate Blood Pressure 122/80 120/80 120/80 Blood Pressure [Left] O2 Sat by Pulse Oximetry - Exam FHR: category 1 (120s-130s, category I, reactive. No variable decelerations noted.) - Labs Labs: Abnormal Labs 07/14/20 07/14/20 07/14/20 13:46 13:46 13:46 MCV MCH 27 L Plt Count Sodium 135 L Carbon Dioxide 21 L BUN Creatinine 0.4 L 0.4 L Albumin 3.6 L Urine Creatinine 07/14/20 07/15/20 07/18/20 16:12 07:42 15:12 MCV MCH 27 L Plt Count Sodium Carbon Dioxide BUN Creatinine Albumin Urine Creatinine 87.0 H 87.0 H 07/21/20 07/21/20 07/25/20 07:26 07:26 09:08 MCV 78 L 78 L MCH 26 L 27 L Plt Count 135 L Sodium Carbon Dioxide BUN Creatinine 0.4 L Albumin Urine Creatinine 07/25/20 07/26/20 07/26/20 21:24 05:41 18:53 MCV MCH 26 L 26 L Plt Count 136 L Sodium Carbon Dioxide BUN Creatinine 0.4 L Albumin Urine Creatinine 07/26/20 07/27/20 07/31/20 18:53 07:00 07:12 MCV 78 L MCH 26 L Plt Count Sodium 136 L Carbon Dioxide BUN 6 L Creatinine 0.4 L Albumin 3.4 L Urine Creatinine 102.4 H 07/31/20 07:12 MCV MCH Plt Count Sodium Carbon Dioxide BUN Creatinine 0.5 L Albumin Urine Creatinine
--- NOTE | 2020-08-03 14:46 | Event Note ---
Discussed with Dr. Chanel regarding continous EFM secondary to BEN of 5.1 cm noted on ultrasound on 07/31/20. EFM this afternoon was category I, reactive. Repeat ultrasound as previously recommended on today's progress note on 08/04. If evidence of category II on EFM or BEN <5 cm, immediate delivery is recommended.
[2020-08-03 16:24] LABS: Hematocrit 34.9 % (30.3-42.9); Hemoglobin 11.8 gm/dl (10.1-14.3); Mean Corpuscular HGB Conc 34 % (30-34); Mean Corpuscular Volume 78 fl (79-97); Red Blood Count 4.45 M/mm3 (3.65-5.03)
[2020-08-03 16:29] LABS: Platelet Count 174 K/mm3 (140-440)
--- NOTE | 2020-08-04 06:49 | Progress Note ---
Assessment and Plan Pt resting No c/o voiced. Seems melancholy this AM. States she has resolved herself to early delivery "Healthy baby Healthy mom" BP 140-120/90-80 with a few outliers of 140-130/100. Pt denies VELAZQUEZ, blurred vision, chest pain. Reports good FM. No LOF, nor VB. IUP@35w3d with CHTN, oligo, IUGR, thrombocytopenia. P: US ordered for this AM growth, BEN, Doppler, and BPP. Repeat PIH labs ordered for 08/07/20. - Patient Problems (1) Chronic hypertension affecting Onset Date: ~07/21/20 Current Visit: Yes Status: Acute Plan to address problem: No evidence of preeclampsia. 24 hour urine on 07/28 was 144 mg. Currently on Labetalol 300 mg TID and Nifedipine 60 mg daily. Blood pressures remain normal to mild range. Evaluate preeclampsia labs at least once a week. (2) Intrauterine growth restriction (IUGR) affecting care of mother, third trimester, single gestation Onset Date: ~07/16/20 Current Visit: Yes Status: Acute Plan to address problem: Per AMFM Recommendations: EFW on 07/21 3#6, 1%. Ultrasound on 07/31: BPP 12/28. Normal UA Dopplers. BEN, 5.1 cm. EFM QID for at least 1 hour. BPP and UA Dopplers twice a week (Mon and Thurs) Repeat growth on or after 08/04. Ordered for today. Ongoing inpatient expectant management is recommended secondary to CHTN requiring 2 medications, IUGR, and currently low normal BEN with history of o ligohydramnios. In addition, patient has voiced that she feels uncomfortable with outpatient expectant management. Delivery is recommended between 34.0 and 37.0 weeks. (3) Oligohydramnios in third trimester Onset Date: ~07/15/20 Current Visit: Yes Status: Acute Qualifiers: Fetus number: single or unspecified fetus Qualified Code(s): O41.03X0 - Oligohydramnios, third trimester, not applicable or unspecified Plan to address problem: Per AMFM Recommendation: BEN on 07/31 was 5.1 cm with normal UA Dopplers. evaluation is ordered for 0800 today Repeat ultrasound on 08/04 to evaluate growth, BPP, UA Dopplers, and BEN. If BEN is less than 5cm, recommend proceeding with delivery. (4) Thrombocytopenia affecting Onset Date: ~07/30/20 Current Visit: Yes Status: Acute Plan to address problem: Most likely, gestational. Platelets 174k on 07/31. (5) 35 weeks gestation of Onset Date: ~08/04/20 Current Visit: Yes Status: Acute Plan to address problem: As per AMFM recommendation Continuous EFM. Pt encouraged to report any concerns/ changes in movement and any s/sx of labor Subjective - Subjective Date of service: 08/04/20 (Resting, not as talkative) Principal diagnosis: IUP 35w3d (EDC 09-05-20); CHTN, IUGR, Gestational Thrombocytopenia Patient reports: movement normal, other (Patient endorses nausea. Denies headaches or visual changes.), no new complaints, no loss of fluid, no vaginal bleeding, no contractions Objective - Vital Signs Vital Signs: Vital Signs - 12hr 08/03/20 08/03/20 08/03/20 18:49 18:54 18:59 Temperature Pulse Rate 78 81 78 Respiratory Rate Blood Pressure Blood Pressure [Left] O2 Sat by Pulse 99 100 100 Oximetry 08/03/20 08/03/20 08/03/20 19:04 19:09 19:11 Temperature 97.3 F L Pulse Rate 80 81 78 Respiratory 16 Rate Blood Pressure Blood Pressure 135/91 [Left] O2 Sat by Pulse 99 100 100 Oximetry 08/03/20 08/03/20 08/03/20 19:12 19:14 19:19 Temperature Pulse Rate 74 83 79 Respiratory Rate Blood Pressure 135/91 Blood Pressure [Left] O2 Sat by Pulse 99 100 Oximetry 08/03/20 08/03/20 08/03/20 19:24 19:29 19:34 Temperature Pulse Rate 79 85 80 Respiratory Rate Blood Pressure Blood Pressure [Left] O2 Sat by Pulse 100 100 99 Oximetry 08/03/20 08/03/20 08/03/20 19:39 19:44 19:49 Temperature Pulse Rate 76 79 76 Respiratory Rate Blood Pressure Blood Pressure [Left] O2 Sat by Pulse 100 100 100 Oximetry 08/03/20 08/03/20 08/03/20 19:54 19:59 20:04 Temperature Pulse Rate 76 80 79 Respiratory Rate Blood Pressure Blood Pressure [Left] O2 Sat by Pulse 100 100 100 Oximetry 08/03/20 08/03/20 08/03/20 20:09 20:14 20:19 Temperature Pulse Rate 77 75 78 Respiratory Rate Blood Pressure Blood Pressure [Left] O2 Sat by Pulse 100 100 99 Oximetry 08/03/20 08/03/20 08/03/20 20:24 20:29 20:34 Temperature Pulse Rate 80 75 78 Respiratory Rate Blood Pressure Blood Pressure [Left] O2 Sat by Pulse 100 99 100 Oximetry 08/03/20 08/03/20 08/03/20 20:39 20:44 20:49 Temperature Pulse Rate 76 72 77 Respiratory Rate Blood Pressure Blood Pressure [Left] O2 Sat by Pulse 100 100 99 Oximetry 08/03/20 08/03/20 08/03/20 20:54 20:59 21:04 Temperature Pulse Rate 76 88 75 Respiratory Rate Blood Pressure Blood Pressure [Left] O2 Sat by Pulse 99 99 100 Oximetry 08/03/20 08/03/20 08/03/20 21:09 21:14 21:19 Temperature Pulse Rate 79 77 75 Respiratory Rate Blood Pressure Blood Pressure [Left] O2 Sat by Pulse 100 100 100 Oximetry 08/03/20 08/03/20 08/03/20 21:24 21:29 21:34 Temperature Pulse Rate 73 88 83 Respiratory Rate Blood Pressure Blood Pressure [Left] O2 Sat by Pulse 100 100 100 Oximetry 08/03/20 08/03/20 08/03/20 21:39 21:44 21:46 Temperature Pulse Rate 84 78 76 Respiratory Rate Blood Pressure Blood Pressure [Left] O2 Sat by Pulse 100 100 93 Oximetry 08/03/20 08/03/20 08/03/20 22:20 22:21 22:22 Temperature Pulse Rate 79 80 76 Respiratory Rate Blood Pressure 126/96 126/96 Blood Pressure [Left] O2 Sat by Pulse 98 Oximetry 08/03/20 08/03/20 08/03/20 22:25 22:30 22:35 Temperature Pulse Rate 84 78 77 Respiratory Rate Blood Pressure Blood Pressure [Left] O2 Sat by Pulse 98 100 100 Oximetry 08/03/20 08/03/20 08/03/20 22:40 22:45 22:50 Temperature Pulse Rate 77 84 89 Respiratory Rate Blood Pressure Blood Pressure [Left] O2 Sat by Pulse 99 99 100 Oximetry 08/03/20 08/03/2008/03/21 22:55 23:00 23:05 Temperature Pulse Rate 74 76 71 Respiratory Rate Blood Pressure Blood Pressure [Left] O2 Sat by Pulse 99 99 99 Oximetry 08/03/20 08/03/20 08/03/20 23:10 23:15 23:20 Temperature Pulse Rate 75 73 74 Respiratory Rate Blood Pressure Blood Pressure [Left] O2 Sat by Pulse 99 99 98 Oximetry 08/03/20 08/03/20 08/03/20 23:25 23:30 23:35 Temperature Pulse Rate 76 77 78 Respiratory Rate Blood Pressure 128/88 Blood Pressure [Left] O2 Sat by Pulse 98 97 97 Oximetry 08/03/20 08/03/20 08/03/20 23:40 23:45 23:50 Temperature Pulse Rate 77 75 75 Respiratory Rate Blood Pressure Blood Pressure [Left] O2 Sat by Pulse 96 97 97 Oximetry 08/03/20 08/04/20 08/04/20 23:55 00:00 00:05 Temperature Pulse Rate 76 75 77 Respiratory Rate Blood Pressure Blood Pressure [Left] O2 Sat by Pulse 97 98 98 Oximetry 08/04/20 08/04/20 08/04/20 00:10 00:14 00:15 Temperature Pulse Rate 82 85 74 Respiratory Rate Blood Pressure Blood Pressure [Left] O2 Sat by Pulse 98 94 97 Oximetry 08/04/20 08/04/20 08/04/20 00:20 00:25 00:30 Temperature Pulse Rate 73 74 74 Respiratory Rate Blood Pressure Blood Pressure [Left] O2 Sat by Pulse 96 98 98 Oximetry 08/04/20 08/04/20 08/04/20 00:35 00:40 00:45 Temperature Pulse Rate 87 77 77 Respiratory Rate Blood Pressure 131/92 Blood Pressure [Left] O2 Sat by Pulse 98 98 97 Oximetry 08/04/20 08/04/20 08/04/20 00:50 00:55 01:00 Temperature Pulse Rate 78 78 78 Respiratory Rate Blood Pressure Blood Pressure [Left] O2 Sat by Pulse 97 98 98 Oximetry 08/04/20 08/04/20 08/04/20 01:05 01:10 01:15 Temperature Pulse Rate 76 78 78 Respiratory Rate Blood Pressure Blood Pressure [Left] O2 Sat by Pulse 95 98 98 Oximetry 08/04/20 08/04/20 08/04/20 01:20 01:23 01:25 Temperature Pulse Rate 77 76 88 Respiratory Rate Blood Pressure Blood Pressure [Left] O2 Sat by Pulse 98 90 98 Oximetry 08/04/20 08/04/20 08/04/20 01:30 01:35 01:36 Temperature Pulse Rate 77 76 76 Respiratory Rate Blood Pressure 134/97 Blood Pressure [Left] O2 Sat by Pulse 98 98 Oximetry 08/04/20 08/04/20 08/04/20 01:40 01:45 01:50 Temperature Pulse Rate 80 75 77 Respiratory Rate Blood Pressure Blood Pressure [Left] O2 Sat by Pulse 99 99 98 Oximetry 08/04/20 08/04/20 08/04/20 01:55 02:00 02:05 Temperature Pulse Rate 76 78 76 Respiratory Rate Blood Pressure Blood Pressure [Left] O2 Sat by Pulse 99 98 99 Oximetry 08/04/20 08/04/20 08/04/20 02:10 02:15 02:20 Temperature Pulse Rate 81 77 75 Respiratory Rate Blood Pressure Blood Pressure [Left] O2 Sat by Pulse 98 96 98 Oximetry 08/04/20 08/04/20 08/04/20 02:25 02:27 02:30 Temperature Pulse Rate 74 81 85 Respiratory Rate Blood Pressure Blood Pressure [Left] O2 Sat by Pulse 99 93 97 Oximetry 08/04/20 08/04/20 08/04/20 02:35 02:40 02:45 Temperature Pulse Rate 84 80 79 Respiratory Rate Blood Pressure 132/94 Blood Pressure [Left] O2 Sat by Pulse 96 98 99 Oximetry 08/04/20 08/04/20 08/04/20 02:50 02:55 03:00 Temperature Pulse Rate 73 86 77 Respiratory Rate Blood Pressure Blood Pressure [Left] O2 Sat by Pulse 99 99 99 Oximetry 08/04/20 08/04/20 08/04/20 03:05 03:10 03:15 Temperature Pulse Rate 77 76 76 Respiratory Rate Blood Pressure Blood Pressure [Left] O2 Sat by Pulse 100 99 99 Oximetry 08/04/20 08/04/20 08/04/20 03:20 03:25 03:30 Temperature Pulse Rate 76 76 75 Respiratory Rate Blood Pressure Blood Pressure [Left] O2 Sat by Pulse 99 100 99 Oximetry 08/04/20 08/04/20 08/04/20 03:35 03:57 04:02 Temperature Pulse Rate 80 82 75 Respiratory Rate Blood Pressure 136/95 Blood Pressure [Left] O2 Sat by Pulse 99 99 98 Oximetry 08/04/20 08/04/20 08/04/20 04:07 04:12 04:17 Temperature Pulse Rate 76 74 74 Respiratory Rate Blood Pressure Blood Pressure [Left] O2 Sat by Pulse 99 99 99 Oximetry 08/04/20 08/04/20 08/04/20 04:22 04:27 04:32 Temperature Pulse Rate 77 77 74 Respiratory Rate Blood Pressure Blood Pressure [Left] O2 Sat by Pulse 98 98 99 Oximetry 08/04/20 08/04/20 08/04/20 04:35 04:37 04:42 Temperature Pulse Rate 77 78 80 Respiratory Rate Blood Pressure 140/79 Blood Pressure [Left] O2 Sat by Pulse 99 99 Oximetry 08/04/20 08/04/20 08/04/20 04:47 04:52 04:57 Temperature Pulse Rate 79 78 75 Respiratory Rate Blood Pressure Blood Pressure [Left] O2 Sat by Pulse 99 99 98 Oximetry 08/04/20 08/04/20 08/04/20 05:02 05:07 05:12 Temperature Pulse Rate 72 74 82 Respiratory Rate Blood Pressure Blood Pressure [Left] O2 Sat by Pulse 99 99 99 Oximetry 08/04/20 08/04/20 08/04/20 05:17 05:22 05:27 Temperature Pulse Rate 73 82 92 H Respiratory Rate Blood Pressure Blood Pressure [Left] O2 Sat by Pulse 99 98 99 Oximetry 08/04/20 08/04/20 08/04/20 05:32 05:35 05:37 Temperature Pulse Rate 75 73 76 Respiratory Rate Blood Pressure 141/106 Blood Pressure [Left] O2 Sat by Pulse 96 100 Oximetry 08/04/20 08/04/20 08/04/20 05:42 06:08 06:13 Temperature Pulse Rate 77 91 H 74 Respiratory Rate Blood Pressure Blood Pressure [Left] O2 Sat by Pulse 99 99 99 Oximetry 08/04/20 08/04/20 08/04/20 06:18 06:23 06:25 Temperature 98.4 F Pulse Rate 82 78 Respiratory 16 Rate Blood Pressure 138/98 Blood Pressure [Left] O2 Sat by Pulse 100 99 Oximetry 08/04/20 08/04/20 08/04/20 06:28 06:33 06:38 Temperature Pulse Rate 78 77 77 Respiratory Rate Blood Pressure Blood Pressure [Left] O2 Sat by Pulse 100 99 100 Oximetry 08/04/20 06:43 Temperature Pulse Rate 86 Respiratory Rate Blood Pressure Blood Pressure [Left] O2 Sat by Pulse 99 Oximetry - Exam Breasts: deferred Cardiovascular: Regular rate Lungs: Clear to auscultation Abdomen: Present: normal appearance, soft. Absent: distention, tenderness Uterus: Present: normal FHR: auscultation normal, category 1 Uterine Contraction Monitor Mode: External Uterine Contraction Pattern: Absent Extremities: normal - Labs Labs: Abnormal Labs 07/14/20 07/14/20 07/14/20 13:46 13:46 13:46 MCV MCH 27 L Plt Count Sodium 135 L Carbon Dioxide 21 L BUN Creatinine 0.4 L 0.4 L Albumin 3.6 L Urine Creatinine 07/14/20 07/15/20 07/18/20 16:12 07:42 15:12 MCV MCH 27 L Plt Count Sodium Carbon Dioxide BUN Creatinine Albumin Urine Creatinine 87.0 H 87.0 H 07/21/20 07/21/20 07/25/20 07:26 07:26 09:08 MCV 78 L 78 L MCH 26 L 27 L Plt Count 135 L Sodium Carbon Dioxide BUN Creatinine 0.4 L Albumin Urine Creatinine 07/25/20 07/26/20 07/26/20 21:24 05:41 18:53 MCV MCH 26 L 26 L Plt Count 136 L Sodium Carbon Dioxide BUN Creatinine 0.4 L Albumin Urine Creatinine 07/26/20 07/27/20 07/31/20 18:53 07:00 07:12 MCV 78 L MCH 26 L Plt Count Sodium 136 L Carbon Dioxide BUN 6 L Creatinine 0.4 L Albumin 3.4 L Urine Creatinine 102.4 H 07/31/20 08/03/20 07:12 16:17 MCV 78 L MCH 27 L Plt Count Sodium Carbon Dioxide BUN Creatinine 0.5 L Albumin Urine Creatinine Laboratory Results - last 24 hr 08/03/20 08/03/20 16:17 16:17 WBC 5.9 RBC 4.45 Hgb 11.8 Hct 34.9 MCV 78 L MCH 27 L MCHC 34 RDW 14.0 Plt Count 174 Blood Type O POSITIVE Antibody Screen Negative
[2020-08-04] MEDS: NIFEdipine XL 60 MG TAB PO SCH (09:59)
[2020-08-04] MEDS: ASPIRIN EC 81 MG TAB PO SCH (09:59)
[2020-08-04] MEDS: PRENATAL VIT27-FE FUMARATE-FOLIC ACID VIT TAB PO SCH ×2 (09:59→11:08)
--- NOTE | 2020-08-04 10:49 | Ultrasound Report ---
ULTRASOUND BIOPHYSICAL PROFILE INDICATION: cHTN, IGUR, well being. COMPARISON: 08/01/2019 FINDINGS: heart rate is 130 beats per minute. breathing movement = 2 Gross body movement = 2 tone = 2 Qualitative amniotic fluid volume = 2 IMPRESSION: biophysical profile = 12/28 Signer Name: Abhijit Salas Jr, MD Signed: 08/04/2020 10:44 AM Workstation Name: [id number]
--- NOTE | 2020-08-04 10:52 | Ultrasound Report ---
ULTRASOUND OB VELOCIMETRY UMBILICAL ARTERY HISTORY: Intrauterine growth restriction, chronic hypertension, well-being TECHNIQUE: Transabdominal ultrasound with color and spectral Doppler imaging. COMPARISON: 07/31/2020. FINDINGS: 3 segments of the umbilical cord were evaluated. The spectral wave forms are normal and persistent. N o evidence for loss of end-diastolic flow. The average resistive index measures 0.64. (0.63, 0.66, and 0.64) The S/D ratio average measures 2.81. (2.69, 2.93, and 2.81) Signer Name: Abhijit Salas Jr, MD Signed: 08/04/2020 10:48 AM Workstation Name: [id number]
--- NOTE | 2020-08-04 10:59 | Ultrasound Report ---
OB ULTRASOUND >= 14 WEEKS FETUS INDICATION: growth d/t cHTN, IUGR COMPARISON: 07/31/2020 FINDINGS: A single gestation intrauterine is present with breech presentation. The placenta is anteri or and free of the cervical os. heart tones measure 131 bpm. Amniotic fluid volume is decreased with a fluid index of 6.7. anatomical survey was not performed. Biparietal diameter is 8.1 cm which equals 32 weeks 3 days. Head circumference is 32.0 cm which equals 36 weeks 0 days. Abdominal circumference is 29.2 cm which equals 33 weeks 2 days. Femur length is 6.8 cm which equals 34 weeks 5 days. Overall estimated sonographic age is 34 weeks 1 day. EDC: 09/14/2020. HC/AC ratio: 1.09 Cephalic index: 70.8 Estimated weight: 2295 g +/- 340 g IMPRESSION: Viable single intrauterine as described. Mild oligohydramnios. Signer Name: Abhijit Salas Jr, MD Signed: 08/04/2020 10:55 AM Workstation Name: [id number]
--- NOTE | 2020-08-04 14:10 | Event Note ---
Date: 08/04/20 Agree with MW/BAND SEWER exam and note. I d/w sono findings and as per recommendations will not deliver at this time. Pt then inquired about having at 36 weeks instead of 27 weeks. I d/w that the recommendations were for delivery between 34 to 37 weeks and that the delivery was delayed due to her doing well and her request to do so as long as she and the baby remained stable. Pt now states that as the weight today was "over 5lbs, I feel comfortable with delivery at this point." I d/w that I would discuss this with the provider ad operations specialist Tuesday as well as scheduling regarding changing the time and date. I stressed that should she become unstable or baby show sign of distress, she would be delivered immediately. She expressed understanding. I also stressed that she can at this point be delivered at any time if she desires as it was stated above she met criteria for delivery at 34 wks. Pt states she does not know about delivery any sooner than Tuesday (08/09/19 @ 36wks) if she is still doing well. I again stressed she is at this point doing well and the BEN while borderline is normal and not oligo today and the other evaluation of the baby are reassuring. She expressed understanding and all questions were addressed and answered.
[2020-08-04] MEDS: ONDANSETRON 4 MG ODT TAB PO PRN (17:38)
[2020-08-04] MEDS: ONDANSETRON 4 MG/2 ML INJ IV PRN (20:13)
[2020-08-05] MEDS: ONDANSETRON 4 MG/2 ML INJ IV PRN ×2 (06:23→22:50)
--- NOTE | 2020-08-05 07:41 | Progress Note ---
Assessment and Plan - Patient Problems (1) Chronic hypertension affecting Onset Date: ~07/21/20 Current Visit: Yes Status: Acute Plan to address problem: No evidence of preeclampsia. 24 hour urine on 07/28 was 144 mg. Currently on labetalol 300 mg bid and nifedipine 60 mg daily. Blood pressures remain normal to mild range. Evaluate preeclampsia labs (CBC and CMP) at least once a week. (2) Intrauterine growth restriction (IUGR) affecting care of mother, third trimester, single gestation Onset Date: ~07/16/20 Current Visit: Yes Status: Acute Plan to address problem: Radiology ultrasound on 08/04: BPP /. Normal UA Dopplers. BEN, 6.7 cm. EFW 5#1, 12%, AC 7%. May discontinue continuous EFM and perform EFM QID for at least 1 hour. BPP and UA Dopplers twice a week (Mon and Thurs) Delivery is recommended between 34.0 and 37.0 weeks. (3) Oligohydramnios in third trimester Onset Date: ~07/15/20 Current Visit: Yes Status: Acute Qualifiers: Fetus number: single or unspecified fetus Qualified Code(s): O41.03X0 - Oligohydramnios, third trimester, not applicable or unspecified Plan to address problem: Resolved on 08/04 ultrasound, BEN 6.7 cm. (4) Thrombocytopenia affecting Onset Date: ~07/30/20 Current Visit: Yes Status: Acute Plan to address problem: Most likely, gestational. Platelets 174k on 08/03. (5) 35 weeks gestation of Onset Date: ~08/04/20 Current Visit: Yes Status: Acute Subjective - Subjective Principal diagnosis: IUP 35w3d (EDC 09-05-20); CHTN, IUGR, Gestational Thrombocytopenia Patient reports: movement normal, other (Patient endorses nausea. Denies headaches or visual changes.), no new complaints, no loss of fluid, no vaginal bleeding, no contractions Objective - Vital Signs Vital Signs: Vital Signs - 12hr 08/04/20 08/04/20 08/05/20 22:05 22:07 00:22 Temperature 98.4 F Pulse Rate 81 76 Respiratory 20 Rate Blood Pressure 120/75 120/75 08/05/20 08/05/20 08/05/20 06:13 06:14 06:15 Temperature Pulse Rate 76 77 76 Respiratory Rate Blood Pressure 147/94 150/104 147/94 08/05/20 08/05/20 06:16 07:10 Temperature Pulse Rate 76 80 Respiratory Rate Blood Pressure 147/97 144/92 - Exam FHR: category 1 (120-130s, category I, reactive.) - Labs Labs: Abnormal Labs 07/14/20 07/14/20 07/14/20 13:46 13:46 13:46 MCV MCH 27 L Plt Count Sodium 135 L Carbon Dioxide 21 L BUN Creatinine 0.4 L 0.4 L Albumin 3.6 L Urine Creatinine 07/14/20 07/15/20 07/18/20 16:12 07:42 15:12 MCV MCH 27 L Plt Count Sodium Carbon Dioxide BUN Creatinine Albumin Urine Creatinine 87.0 H 87.0 H 07/21/20 07/21/20 07/25/20 07:26 07:26 09:08 MCV 78 L 78 L MCH 26 L 27 L Plt Count 135 L Sodium Carbon Dioxide BUN Creatinine 0.4 L Albumin Urine Creatinine 07/25/20 07/26/20 07/26/20 21:24 05:41 18:53 MCV MCH 26 L 26 L Plt Count 136 L Sodium Carbon Dioxide BUN Creatinine 0.4 L Albumin Urine Creatinine 07/26/20 07/27/20 07/31/20 18:53 07:00 07:12 MCV 78 L MCH 26 L Plt Count Sodium 136 L Carbon Dioxide BUN 6 L Creatinine 0.4 L Albumin 3.4 L Urine Creatinine 102.4 H 07/31/20 08/03/20 07:12 16:17 MCV 78 L MCH 27 L Plt Count Sodium Carbon Dioxide BUN Creatinine 0.5 L Albumin Urine Creatinine
--- NOTE | 2020-08-05 07:57 | Progress Note ---
Assessment and Plan A: 35 y.o. @ 34.4 wks, IUGR, cHTN, gestational thrombocytopenia, and oligohydramnios. - Patient Problems (1) Intrauterine growth restriction (IUGR) affecting care of mother, third trimester, single gestation Onset Date: ~07/16/20 Current Visit: Yes Status: Acute Plan to address problem: Ultrasound on 08/04: BPP 8/8. Normal UA Dopplers. BEN, 6.7 cm. EFW 5#1, 12%, AC 7%. May discontinue continuous EFM and perform EFM QID for at least 1 hour. BPP and UA Dopplers twice a week: ordered for 08/07. Delivery is recommended between 34.0 and 37.0 weeks. (2) Chronic hypertension affecting Onset Date: ~07/21/20 Current Visit: Yes Status: Acute Plan to address problem: No evidence of preeclampsia. 24 hour urine on 07/28 was 144 mg. Currently on labetalol 300 mg TID and nifedipine 60 mg daily. Blood pressures remain normal to mild range. Evaluate preeclampsia labs (CBC and CMP) at least once a week: Ordered for 08/07. (3) Thrombocytopenia affecting Onset Date: ~07/30/20 Current Visit: Yes Status: Acute Plan to address problem: Platelet count on 08/03 was 174. Will continue to monitor. (4) Oligohydramnios in third trimester Onset Date: ~07/15/20 Current Visit: Yes Status: Acute Qualifiers: Fetus number: single or unspecified fetus Qualified Code(s): O41.03X0 - Oligohydramnios, third trimester, not applicable or unspecified Plan to address problem: BEN on 08/04 6.7. Full BEN ordered with BPP on 08/07. Subjective - Subjective Date of service: 08/05/20 (Some nausea this AM. ) Principal diagnosis: IUP 35w4d (EDC 09-05-20); CHTN, IUGR, Gestational Thrombocytopenia Patient reports: movement normal, other, no new complaints, no loss of fluid, no vaginal bleeding, no contractions Objective - Vital Signs Vital Signs: Vital Signs - 12hr 08/04/20 08/04/20 08/05/20 22:05 22:07 00:22 Temperature 98.4 F Pulse Rate 81 76 Respiratory 20 Rate Blood Pressure 120/75 120/75 08/05/20 08/05/20 08/05/20 06:13 06:14 06:15 Temperature Pulse Rate 76 77 76 Respiratory Rate Blood Pressure 147/94 150/104 147/94 08/05/20 08/05/20 08/05/20 06:16 07:10 07:40 Temperature Pulse Rate 76 80 88 Respiratory Rate Blood Pressure 147/97 144/92 167/118 - Exam Narrative Exam: Pt denies VELAZQUEZ, blurred vision, spots before her eyes, chest pain, shortness of b reath, upper abdominal pain, ctxs, LOF, and vaginal bleeding. Pt states that she has some nausea this AM and she was given Zofran in her IV. She was sitting up and eating breakfast this AM. Her blood pressure ranges have been 140's-150's/92-104. This AM she was sitting up in bed eating breakfast and moving her arm when the blood pressure cuff so she had one elevated blood pressure of 167/110. Will continue to monitor blood pressures. Breasts: deferred Abdomen: Present: normal appearance FHR: category 1 Uterine Contraction Monitor Mode: External Uterine Contraction Pattern: Absent Extremities: normal Deep Tendon Reflex Grade: Normal +2 - Labs Labs: Abnormal Labs 07/14/20 07/14/20 07/14/20 13:46 13:46 13:46 MCV MCH 27 L Plt Count Sodium 135 L Carbon Dioxide 21 L BUN Creatinine 0.4 L 0.4 L Albumin 3.6 L Urine Creatinine 07/14/20 07/15/20 07/18/20 16:12 07:42 15:12 MCV MCH 27 L Plt Count Sodium Carbon Dioxide BUN Creatinine Albumin Urine Creatinine 87.0 H 87.0 H 07/21/20 07/21/20 07/25/20 07:26 07:26 09:08 MCV 78 L 78 L MCH 26 L 27 L Plt Count 135 L Sodium Carbon Dioxide BUN Creatinine 0.4 L Albumin Urine Creatinine 07/25/20 07/26/20 07/26/20 21:24 05:41 18:53 MCV MCH 26 L 26 L Plt Count 136 L Sodium Carbon Dioxide BUN Creatinine 0.4 L Albumin Urine Creatinine 07/26/20 07/27/20 07/31/20 18:53 07:00 07:12 MCV 78 L MCH 26 L Plt Count Sodium 136 L Carbon Dioxide BUN 6 L Creatinine 0.4 L Albumin 3.4 L Urine Creatinine 102.4 H 07/31/20 08/03/20 07:12 16:17 MCV 78 L MCH 27 L Plt Count Sodium Carbon Dioxide BUN Creatinine 0.5 L Albumin Urine Creatinine
[2020-08-05] MEDS: PRENATAL VIT27-FE FUMARATE-FOLIC ACID VIT TAB PO SCH (10:55)
[2020-08-05] MEDS: NIFEdipine XL 60 MG TAB PO SCH (10:55)
[2020-08-05] MEDS: ASPIRIN EC 81 MG TAB PO SCH (10:55)
--- NOTE | 2020-08-06 05:38 | Progress Note ---
Assessment and Plan Pt resting No c/o voiced. Excited that she has a date for delivery. BP 128/83 Continue POC - Patient Problems (1) Chronic hypertension affecting Onset Date: ~07/21/20 Current Visit: Yes Status: Acute Plan to address problem: No evidence of preeclampsia. 24 hour urine on 07/28 was 144 mg. Currently on labetalol 300 mg TID and Nifedipine 60 mg daily. Blood pressures remain normal to mild range. Pt does have some BPs Evaluate preeclampsia labs (CBC and CMP) at least once a week. Labs ordered for 08/07/20 (2) Intrauterine growth restriction (IUGR) affecting care of mother, third trimester, single gestation Onset Date: ~07/16/20 Current Visit: Yes Status: Acute Plan to address problem: Radiology ultrasound on 08/04: BPP 8/8. Normal UA Dopplers. BEN, 6.7 cm. EFW 5#1, 12%, AC 7%. May discontinue continuous EFM and perform EFM QID for at least 1 hour. BPP and UA Dopplers twice a week (Mon and Thurs) evaluation ordered for 08/07/20 Delivery is recommended between 34.0 and 37.0 weeks. (3) Oligohydramnios in third trimester Onset Date: ~07/15/20 Current Visit: Yes Status: Acute Qualifiers: Fetus number: single or unspecified fetus Qualified Code(s): O41.03X0 - Oligohydramnios, third trimester, not applicable or unspecified Plan to address problem: Resolved on 08/04 ultrasound, BEN 6.7 cm. (4) Thrombocytopenia affecting Onset Date: ~07/30/20 Current Visit: Yes Status: Acute Plan to address problem: Most likely, gestational. Platelets 174k on 08/03. (5) 35 weeks gestation of Onset Date: ~08/04/20 Current Visit: Yes Status: Acute Subjective - Subjective Date of service: 08/06/20 (pt resting quietly) Principal diagnosis: IUP 35w5d (EDC 09-05-20); CHTN, IUGR, Gestational Thrombocytopenia Patient reports: movement normal, other, no new complaints, no loss of fluid, no vaginal bleeding, no contractions Objective - Vital Signs Vital Signs: Vital Signs - 12hr 08/05/20 08/05/20 08/05/20 19:39 19:40 19:41 Temperature 98.3 F Pulse Rate 74 60 Respiratory 18 Rate Blood Pressure 140/82 Blood Pressure 140/82 [Left] O2 Sat by Pulse 99 36 L 97 Oximetry 08/05/20 08/05/20 08/05/20 21:40 21:42 21:43 Temperature Pulse Rate 80 80 80 Respiratory Rate Blood Pressure 124/84 124/84 124/84 Blood Pressure 124/84 [Left] O2 Sat by Pulse Oximetry 08/06/20 01:44 Temperature 98.7 F Pulse Rate 74 Respiratory 18 Rate Blood Pressure 127/85 Blood Pressure 127/85 [Left] O2 Sat by Pulse Oximetry - Exam Breasts: deferred Cardiovascular: Regular rate Lungs: Clear to auscultation Abdomen: Present: normal appearance, soft. Absent: distention, tenderness Uterus: Present: normal FHR: auscultation normal, category 1 Uterine Contraction Monitor Mode: External Uterine Contraction Pattern: Absent Uterine Tone Measurement Phase: Resting Extremities: normal Deep Tendon Reflex Grade: Normal +2 - Labs Labs: Abnormal Labs 07/14/20 07/14/20 07/14/20 13:46 13:46 13:46 MCV MCH 27 L Plt Count Sodium 135 L Carbon Dioxide 21 L BUN Creatinine 0.4 L 0.4 L Albumin 3.6 L Urine Creatinine 07/14/20 07/15/20 07/18/20 16:12 07:42 15:12 MCV MCH 27 L Plt Count Sodium Carbon Dioxide BUN Creatinine Albumin Urine Creatinine 87.0 H 87.0 H 07/21/20 07/21/20 07/25/20 07:26 07:26 09:08 MCV 78 L 78 L MCH 26 L 27 L Plt Count 135 L Sodium Carbon Dioxide BUN Creatinine 0.4 L Albumin Urine Creatinine 07/25/20 07/26/20 07/26/20 21:24 05:41 18:53 MCV MCH 26 L 26 L Plt Count 136 L Sodium Carbon Dioxide BUN Creatinine 0.4 L Albumin Urine Creatinine 07/26/20 07/27/20 07/31/20 18:53 07:00 07:12 MCV 78 L MCH 26 L Plt Count Sodium 136 L Carbon Dioxide BUN 6 L Creatinine 0.4 L Albumin 3.4 L Urine Creatinine 102.4 H 07/31/20 08/03/20 07:12 16:17 MCV 78 L MCH 27 L Plt Count Sodium Carbon Dioxide BUN Creatinine 0.5 L Albumin Urine Creatinine
[2020-08-06] MEDS: PRENATAL VIT27-FE FUMARATE-FOLIC ACID VIT TAB PO SCH (09:36)
[2020-08-06] MEDS: NIFEdipine XL 60 MG TAB PO SCH (09:36)
[2020-08-06] MEDS: ASPIRIN EC 81 MG TAB PO SCH (10:15)
[2020-08-06] MEDS: ONDANSETRON 4 MG/2 ML INJ IV PRN (23:47)
--- NOTE | 2020-08-07 07:21 | Progress Note ---
Assessment and Plan denies VELAZQUEZ/visual changes/ epigastric pain, ctx, SROM or vag bleeding. A: 1. IUP at 35+6 weeks gestation s/p BMZ 07/08- 2.IUGR diagnosed on 07/07 at [facility] was 3#5, 9%. AC 4%. 3lb 6 oz 1% (07/21/20) ultrasound on 08/04: BPP 8/8. Normal UA Dopplers. BEN, 6.7 cm. EFW 5#1, 12%, AC 7%. 3.CHTN with exacerbation ruled out for preeclampsia Currently on Labetalol 300 mg TID and Procardia 60 mg 24hr urine, 07/28 TP 144 4.Oligohydramnios - resolved BEN 08/04/2020 6.7cms 5. Breech - c/s planned for 37+0 Recommendations from [facility]: 1. Monitor for distress, worsening maternal HTN 2. Twice weekly BPP /Doppler/4 quadrant BEN (ordered for today) 3. Growth q2 weeks on or after 08/04 4. NST q6hrs 5. Continue current antihypertensive regimen, titrate to maintain BP 120-160/80-105mmhg 6. Weekly pre-e labs 7. Delivery at 34 0/7 -37 6/7 - c/s scheduled Saturday 08/12 - Patient Problems (1) Intrauterine growth restriction (IUGR) affecting care of mother, third trimester, single gestation Onset Date: ~07/16/20 Current Visit: Yes Status: Acute (2) Oligohydramnios in third trimester Onset Date: ~07/15/20 Current Visit: Yes Status: Acute Qualifiers: Fetus number: single or unspecified fetus Qualified Code(s): O41.03X0 - Oligohydramnios, third trimester, not applicable or unspecified (3) Chronic hypertension affecting Onset Date: ~07/21/20 Current Visit: Yes Status: Acute (4) 35 weeks gestation of Onset Date: ~08/04/20 Current Visit: Yes Status: Acute Subjective - Subjective Date of service: 08/07/20 Principal diagnosis: IUP 35w6d (EDC 09-05-20); CHTN, IUGR, Gestational Thrombocytopenia Patient reports: new complaints (nausea), movement normal, no loss of fluid, no vaginal bleeding, no contractions, no other (denies VELAZQUEZ/visual changes or epigastric pain) Objective - Vital Signs Vital Signs: Vital Signs - 12hr 08/06/20 08/06/20 08/06/20 21:59 22:00 23:41 Temperature 98.7 F Pulse Rate 75 75 Respiratory 16 Rate Blood Pressure 134/97 134/97 08/06/20 08/07/20 23:42 05:57 Temperature Pulse Rate 78 76 Respiratory Rate Blood Pressure 140/91 124/84 - Exam Cardiovascular: Regular rate Lungs: Normal air movement Abdomen: Present: normal appearance, soft Uterus: Present: normal, fundal height above umbilicus FHR: auscultation normal Uterine Contraction Monitor Mode: Palpation Uterine Contraction Pattern: Absent Uterine Tone Measurement Phase: Resting Extremities: normal Deep Tendon Reflex Grade: Normal +2 - Labs Labs: Abnormal Labs 07/14/20 07/14/20 07/14/20 13:46 13:46 13:46 MCV MCH 27 L Plt Count Sodium 135 L Carbon Dioxide 21 L BUN Creatinine 0.4 L 0.4 L Albumin 3.6 L Urine Creatinine 07/14/20 07/15/20 07/18/20 16:12 07:42 15:12 MCV MCH 27 L Plt Count Sodium Carbon Dioxide BUN Creatinine Albumin Urine Creatinine 87.0 H 87.0 H 07/21/20 07/21/20 07/25/20 07:26 07:26 09:08 MCV 78 L 78 L MCH 26 L 27 L Plt Count 135 L Sodium Carbon Dioxide BUN Creatinine 0.4 L Albumin Urine Creatinine 07/25/20 07/26/20 07/26/20 21:24 05:41 18:53 MCV MCH 26 L 26 L Plt Count 136 L Sodium Carbon Dioxide BUN Creatinine 0.4 L Albumin Urine Creatinine 07/26/20 07/27/20 07/31/20 18:53 07:00 07:12 MCV 78 L MCH 26 L Plt Count Sodium 136 L Carbon Dioxide BUN 6 L Creatinine 0.4 L Albumin 3.4 L Urine Creatinine 102.4 H 07/31/20 08/03/20 07:12 16:17 MCV 78 L MCH 27 L Plt Count Sodium Carbon Dioxide BUN Creatinine 0.5 L Albumin Urine Creatinine
--- NOTE | 2020-08-07 07:57 | Progress Note ---
Assessment and Plan A: 1. IUP at 35 6/7 weeks gestation s/p BMZ 2.IUGR 08/04: EFW 5#1, 12%, AC 7%. 3.CHTN with exacerbation 24hr urine, 07/28 TP 144 stable on her current regimen of Labetalol 300 mg TID and Procardia 60 mg 4.decreased BEN 08/04/2020 6.7cm 5. Breech Rec:: 1. Monitor for distress, worsening maternal HTN , pt would like to continue inpt management 2. Twice weekly BPP /Doppler/4 quadrant BEN ( scheduled for today) 3. NST q6hrs 4. Continue current antihypertensive regimen, titrate to maintain BP 120-160/80-105mmhg 5. CMP/CBC 1-2 times weekly 6. Delivery recommended at 34 0/7- 37 6/7 weeks . She reports that she is scheduled for delivery on Tuesday Subjective - Subjective Date of service: 08/07/20 Principal diagnosis: IUP 35w6d (EDC 09-05-20); CHTN, IUGR, Gestational Thrombocytopenia Interval history: Reports nausea, denied VELAZQUEZ visual changes CP RUQ pain Patient reports: movement normal, other, no new complaints, no loss of fluid, no vaginal bleeding, no contractions Objective - Vital Signs Vital Signs: Vital Signs - 12hr 08/06/20 08/06/20 08/06/20 21:59 22:00 23:41 Temperature 98.7 F Pulse Rate 75 75 Respiratory 16 Rate Blood Pressure 134/97 134/97 08/06/20 08/07/20 23:42 05:57 Temperature Pulse Rate 78 76 Respiratory Rate Blood Pressure 140/91 124/84 - Exam Narrative Exam: NAD Abdomen: Present: normal appearance Extremities: normal - Labs Labs: Abnormal Labs 07/14/20 07/14/20 07/14/20 13:46 13:46 13:46 MCV MCH 27 L Plt Count Sodium 135 L Carbon Dioxide 21 L BUN Creatinine 0.4 L 0.4 L Albumin 3.6 L Urine Creatinine 07/14/20 07/15/20 07/18/20 16:12 07:42 15:12 MCV MCH 27 L Plt Count Sodium Carbon Dioxide BUN Creatinine Albumin Urine Creatinine 87.0 H 87.0 H 07/21/20 07/21/20 07/25/20 07:26 07:26 09:08 MCV 78 L 78 L MCH 26 L 27 L Plt Count 135 L Sodium Carbon Dioxide BUN Creatinine 0.4 L Albumin Urine Creatinine 07/25/20 07/26/20 07/26/20 21:24 05:41 18:53 MCV MCH 26 L 26 L Plt Count 136 L Sodium Carbon Dioxide BUN Creatinine 0.4 L Albumin Urine Creatinine 07/26/20 07/27/20 07/31/20 18:53 07:00 07:12 MCV 78 L MCH 26 L Plt Count Sodium 136 L Carbon Dioxide BUN 6 L Creatinine 0.4 L Albumin 3.4 L Urine Creatinine 102.4 H 07/31/20 08/03/20 07:12 16:17 MCV 78 L MCH 27 L Plt Count Sodium Carbon Dioxide BUN Creatinine 0.5 L Albumin Urine Creatinine
[2020-08-07] MEDS: ONDANSETRON 4 MG/2 ML INJ IV PRN (07:58)
[2020-08-07 08:42] LABS: Hematocrit 33.4 % (30.3-42.9); Hemoglobin 11.4 gm/dl (10.1-14.3); Mean Corpuscular HGB Conc 34 % (30-34); Mean Corpuscular Volume 79 fl (79-97); Platelet Count 176 K/mm3 (140-440); Red Blood Count 4.25 M/mm3 (3.65-5.03); Red Cell Distribution Width 14.4 % (13.2-15.2)
[2020-08-07 08:56] LABS: Alanine Aminotransferase 24 units/L (7-56); Uric Acid 4.3 mg/dL (3.5-7.6)
[2020-08-07] MEDS: DOCUSATE SODIUM 100 MG CAP PO PRN (09:52)
[2020-08-07] MEDS: NIFEdipine XL 60 MG TAB PO SCH (09:52)
[2020-08-07] MEDS: PRENATAL VIT27-FE FUMARATE-FOLIC ACID VIT TAB PO SCH (09:52)
[2020-08-07] MEDS: ASPIRIN EC 81 MG TAB PO SCH (09:52)
[2020-08-07 14:32] LABS: Bacteria,Urine 1+ /HPF (Negative); Bilirubin,Urine NEG (Negative); Blood,Urine NEG (Negative); Color,Urine Yellow (Yellow); Mucus,Urine FEW /HPF; Protein,Urine <15 mg/dL mg/dL (Negative); Urobilinogen,Urine < 2.0 mg/dL (<2.0)
[2020-08-08] MEDS: ONDANSETRON 4 MG ODT TAB PO PRN (00:25)
--- NOTE | 2020-08-08 07:40 | Ultrasound Report ---
US OB BPP wo non-stress INDICATION / CLINICAL INFORMATION: cHTN, IUGR, well being. TECHNIQUE: Transabdominal. Duplex Color Doppler used: Yes. COMPARISON: 08/04/2020 FINDINGS: Biophysical Profile: breathing movements: 2 movements:2 posture and tone:2 Qualitative amniotic fluid volume: 2 heart rate: 137 IMPRESSION: 1. Biophysical profile is 8 of 8 Signer Name: Te Lam MD Signed: 08/08/2020 7:36 AM Workstation Name: [id number]
--- NOTE | 2020-08-08 07:42 | Ultrasound Report ---
ULTRASOUND OB VELOCIMETRY UMBILICAL ARTERY HISTORY: IUGR TECHNIQUE: Transabdominal ultrasound with color and spectral Doppler imaging COMPARISON: 08/04/2020 FINDINGS: 3 segments of the umbilical cord were evaluated. heart rate measures 149 bpm. The spectral wave forms are normal and persistent. Average S/D ratio measures: 2.8 Average resistive index measures: 0.7 Signer Name: Te Lam MD Signed: 08/08/2020 7:38 AM Workstation Name: [id number]
--- NOTE | 2020-08-08 07:43 | Ultrasound Report ---
US OB limited INDICATION: decreased movment. TECHNIQUE: Transabdominal. COMPARISON: 08/04/2020. FINDINGS: There is a single intrauterine . Heart Rate: 137 beats per minute. Position: cephalic. Amniotic Fluid Volume: normal Amniotic Fluid Index (BEN) in cm (if calculated): 7.7, previously measured 6.7. IMPRESSION: 1. Amniotic fluid is lower limits of normal Signer Name: Te Lam MD Signed: 08/08/2020 7:39 AM Workstation Name: [id number]
--- NOTE | 2020-08-08 09:08 | Progress Note ---
Assessment and Plan A: 35 y.o. with cHTN, gestational thrombocytopenia, IUGR. P: Monitor for distress, worsening maternal HTN. BPP, Dopplers, BEN on 08/07: BEN 7.76, dopplers normal, BPP 8/8. Growth on 08/04: EFW 5-1 (12%), AC 7% NST q6hrs for 1 hour. Continue current antihypertensive regimen, titrate to maintain BP 120-160/80-105mmhg CMP/CBC 1-2 times weekly. Last platelet count was 176 on 08/07. Delivery recommended at 34 0/7- 37 6/7 weeks . to be scheduled for 08/12. - Patient Problems (1) Intrauterine growth restriction (IUGR) affecting care of mother, third trimester, single gestation Onset Date: ~07/16/20 Current Visit: Yes Status: Acute (2) Chronic hypertension affecting Onset Date: ~07/21/20 Current Visit: Yes Status: Acute (3) Thrombocytopenia affecting Onset Date: ~07/30/20 Current Visit: Yes Status: Acute (4) Oligohydramnios in third trimester Onset Date: ~07/15/20 Current Visit: Yes Status: Acute Qualifiers: Fetus number: single or unspecified fetus Qualified Code(s): O41.03X0 - Oligohydramnios, third trimester, not applicable or unspecified Subjective - Subjective Date of service: 08/08/20 (Pt doing well. ) Principal diagnosis: IUP 36 wks (EDC 09-05-20); CHTN, IUGR, Gestational Thrombocytopenia Patient reports: new complaints (nausea), movement normal, no loss of fluid, no vaginal bleeding, no contractions, no other Objective - Vital Signs Vital Signs: Vital Signs - 12hr 08/07/20 08/07/20 08/08/20 22:26 22:27 01:29 Temperature 98.3 F Pulse Rate 82 82 Respiratory 18 Rate Blood Pressure 113/74 113/74 08/08/20 05:50 Temperature Pulse Rate 79 Respiratory Rate Blood Pressure 128/82 - Exam Narrative Exam: Pt denies VELAZQUEZ. blurred vision, spots before her eyes, chest pain, shortness of breath, upper abdominal pain, vaginal bleeding, LOF, ctxs. Breasts: deferred Cardiovascular: Regular rate Lungs: Normal air movement Abdomen: Present: normal appearance, soft Uterus: Present: normal FHR: category 1 Uterine Contraction Monitor Mode: External Uterine Contraction Pattern: Absent Extremities: normal - Labs Labs: Abnormal Labs 07/14/20 07/14/20 07/14/20 13:46 13:46 13:46 MCV MCH 27 L Plt Count Sodium 135 L Carbon Dioxide 21 L BUN Creatinine 0.4 L 0.4 L Lactate Dehydrogenase Albumin 3.6 L Urine Creatinine 07/14/20 07/15/20 07/18/20 16:12 07:42 15:12 MCV MCH 27 L Plt Count Sodium Carbon Dioxide BUN Creatinine Lactate Dehydrogenase Albumin Urine Creatinine 87.0 H 87.0 H 07/21/20 07/21/20 07/25/20 07:26 07:26 09:08 MCV 78 L 78 L MCH 26 L 27 L Plt Count 135 L Sodium Carbon Dioxide BUN Creatinine 0.4 L Lactate Dehydrogenase Albumin Urine Creatinine 07/25/20 07/26/20 07/26/20 21:24 05:41 18:53 MCV MCH 26 L 26 L Plt Count 136 L Sodium Carbon Dioxide BUN Creatinine 0.4 L Lactate Dehydrogenase Albumin Urine Creatinine 07/26/20 07/27/20 07/31/20 18:53 07:00 07:12 MCV 78 L MCH 26 L Plt Count Sodium 136 L Carbon Dioxide BUN 6 L Creatinine 0.4 L Lactate Dehydrogenase Albumin 3.4 L Urine Creatinine 102.4 H 07/31/20 08/03/20 08/07/20 07:12 16:17 08:02 MCV 78 L MCH 27 L 27 L Plt Count Sodium Carbon Dioxide BUN Creatinine 0.5 L Lactate Dehydrogenase Albumin Urine Creatinine 08/07/20 08:02 MCV MCH Plt Count Sodium Carbon Dioxide BUN Creatinine 0.5 L Lactate Dehydrogenase 197 H Albumin Urine Creatinine Laboratory Results - last 24 hr 08/07/20 08/07/20 08:02 Unknown Urine Color Yellow Urine Turbidity Slightly-cloudy Urine pH 6.0 Ur Specific Cook 1.017 Urine Protein <15 mg/dl Urine Glucose (UA) Neg Urine Ketones Neg Urine Blood Neg Urine Nitrite Neg Urine Bilirubin Neg Urine Urobilinogen < 2.0 Ur Leukocyte Esterase Neg Urine WBC (Auto) 1.0 Urine RBC (Auto) 1.0 U Epithel Cells (Auto) 6.0 Urine Bacteria (Auto) 1+ Urine Mucus Few Blood Type O POSITIVE Antibody Screen Negative
[2020-08-08] MEDS: ASPIRIN EC 81 MG TAB PO SCH (09:49)
[2020-08-08] MEDS: PRENATAL VIT27-FE FUMARATE-FOLIC ACID VIT TAB PO SCH (09:49)
[2020-08-08] MEDS: NIFEdipine XL 60 MG TAB PO SCH (09:49)
[2020-08-09] MEDS: DOCUSATE SODIUM 100 MG CAP PO PRN ×2 (04:07→10:59)
[2020-08-09] MEDS: ONDANSETRON 4 MG/2 ML INJ IV PRN (06:27)
--- NOTE | 2020-08-09 09:30 | Progress Note ---
Assessment and Plan Delay in charting. Pt in great spirits. Hasc/o constipation Took Colace Pt thinks it is working! VSS FHR Cat [address] Navarro here from [facility] Will review her recommendations Rec:: 1. Monitor for distress, worsening maternal HTN , pt would like to continue inpt management 2. Twice weekly BPP /Doppler/4 quadrant BEN Scheduled 08/11/20 3. NST q6hrs 4. Continue current antihypertensive regimen, titrate to maintain BP 120-160/80-105mmhg 5. CMP/CBC 1-2 times weekly Scheduled 08/11/20 6. Delivery recommended at 34 0/7- 37 6/7 weeks . She reports that she is scheduled for delivery on Tuesday - Patient Problems (1) Chronic hypertension affecting Onset Date: ~07/21/20 Current Visit: Yes Status: Acute Plan to address problem: BP 140-130/90-80 Pt denies VELAZQUEZ, blurred vision, chest pain Continue Antihypertensives as ordered (2) Intrauterine growth restriction (IUGR) affecting care of mother, third trimester, single gestation Onset Date: ~07/16/20 Current Visit: Yes Status: Acute Plan to address problem: pt reports good FM Denies ctx (3) Oligohydramnios in third trimester Onset Date: ~07/15/20 Current Visit: Yes Status: Acute Qualifiers: Fetus number: single or unspecified fetus Qualified Code(s): O41.03X0 - Oligohydramnios, third trimester, not applicable or unspecified Plan to address problem: Last BEN 7.7 Will be repeat 07/14/20 (4) Thrombocytopenia affecting Onset Date: ~07/30/20 Current Visit: Yes Status: Acute (5) 35 weeks gestation of Onset Date: ~08/04/20 Current Visit: Yes Status: Acute Subjective - Subjective Date of service: 08/09/20 Principal diagnosis: IUP 36w1d wks (EDC 09-05-20); CHTN, IUGR, Gestational Thrombocytopenia Patient reports: new complaints (nausea), movement normal, no loss of fluid, no vaginal bleeding, no contractions, no other Objective - Vital Signs Vital Signs: Vital Signs - 12hr 08/08/20 08/08/20 08/09/20 22:18 22:19 01:35 Temperature Pulse Rate 90 90 91 H Respiratory Rate Blood Pressure 134/94 134/94 137/94 Blood Pressure [Left] O2 Sat by Pulse Oximetry 08/09/20 08/09/20 08/09/20 04:09 06:07 09:06 Temperature 98.5 F Pulse Rate 86 83 81 Respiratory 20 Rate Blood Pressure 144/89 143/93 139/97 Blood Pressure [Left] O2 Sat by Pulse Oximetry 08/09/20 08/09/20 09:07 09:09 Temperature 98.8 F Pulse Rate 81 86 Respiratory 18 Rate Blood Pressure Blood Pressure 139/97 [Left] O2 Sat by Pulse 99 99 Oximetry - Labs Labs: Abnormal Labs 07/14/20 07/14/20 07/14/20 13:46 13:46 13:46 MCV MCH 27 L Plt Count Sodium 135 L Carbon Dioxide 21 L BUN Creatinine 0.4 L 0.4 L Lactate Dehydrogenase Albumin 3.6 L Urine Creatinine 07/14/20 07/15/20 07/18/20 16:12 07:42 15:12 MCV MCH 27 L Plt Count Sodium Carbon Dioxide BUN Creatinine Lactate Dehydrogenase Albumin Urine Creatinine 87.0 H 87.0 H 07/21/20 07/21/20 07/25/20 07:26 07:26 09:08 MCV 78 L 78 L MCH 26 L 27 L Plt Count 135 L Sodium Carbon Dioxide BUN Creatinine 0.4 L Lactate Dehydrogenase Albumin Urine Creatinine 07/25/20 07/26/20 07/26/20 21:24 05:41 18:53 MCV MCH 26 L 26 L Plt Count 136 L Sodium Carbon Dioxide BUN Creatinine 0.4 L Lactate Dehydrogenase Albumin Urine Creatinine 07/26/20 07/27/20 07/31/20 18:53 07:00 07:12 MCV 78 L MCH 26 L Plt Count Sodium 136 L Carbon Dioxide BUN 6 L Creatinine 0.4 L Lactate Dehydrogenase Albumin 3.4 L Urine Creatinine 102.4 H 07/31/20 08/03/20 08/07/20 07:12 16:17 08:02 MCV 78 L MCH 27 L 27 L Plt Count Sodium Carbon Dioxide BUN Creatinine 0.5 L Lactate Dehydrogenase Albumin Urine Creatinine 08/07/20 08:02 MCV MCH Plt Count Sodium Carbon Dioxide BUN Creatinine 0.5 L Lactate Dehydrogenase 197 H Albumin Urine Creatinine
--- NOTE | 2020-08-09 09:42 | Progress Note ---
Assessment and Plan PE- deferred (patient in the shower) A: 1. IUP at 3 /7 weeks gestation s/p BMZ 07/08- 2.IUGR 08/04: EFW 5#1, 12%, AC 7%. 3.CHTN with exacerbation 24hr urine, 07/28 TP 144 stable on her current regimen of Labetalol 300 mg TID and Procardia 60 mg 4.decreased BEN 5. Breech Rec:: 1. Monitor for distress, worsening maternal HTN , pt would like to continue inpt management 2. Twice weekly BPP /Doppler/4 quadrant BEN ( scheduled for today) 3. NST q6hrs 4. Continue current antihypertensive regimen, titrate to maintain BP 120-160/80-105mmhg 5. CMP/CBC 1-2 times weekly 6. Delivery recommended at 34 0/7- 37 6/7 weeks . She reports that she is scheduled for delivery on Tuesday Subjective - Subjective Principal diagnosis: IUP 36w1d wks (EDC 09-05-20); CHTN, IUGR, Gestational Thrombocytopenia Interval history: The patient reports she is doing well and has no complaints. Denies headaches, visual changes, chest pain, SOB or RUQ pain. Good movement. Patient reports: new complaints (nausea), movement normal, no loss of fluid, no vaginal bleeding, no contractions, no other Objective - Vital Signs Vital Signs: Vital Signs - 12hr 08/08/20 08/08/20 08/09/20 22:18 22:19 01:35 Temperature Pulse Rate 90 90 91 H Respiratory Rate Blood Pressure 134/94 134/94 137/94 Blood Pressure [Left] O2 Sat by Pulse Oximetry 08/09/20 08/09/20 08/09/20 04:09 06:07 09:06 Temperature 98.5 F Pulse Rate 86 83 81 Respiratory 20 Rate Blood Pressure 144/89 143/93 139/97 Blood Pressure [Left] O2 Sat by Pulse Oximetry 08/09/20 08/09/20 09:07 09:09 Temperature 98.8 F Pulse Rate 81 86 Respiratory 18 Rate Blood Pressure Blood Pressure 139/97 [Left] O2 Sat by Pulse 99 99 Oximetry - Labs Labs: Abnormal Labs 07/14/20 07/14/20 07/14/20 13:46 13:46 13:46 MCV MCH 27 L Plt Count Sodium 135 L Carbon Dioxide 21 L BUN Creatinine 0.4 L 0.4 L Lactate Dehydrogenase Albumin 3.6 L Urine Creatinine 07/14/20 07/15/20 07/18/20 16:12 07:42 15:12 MCV MCH 27 L Plt Count Sodium Carbon Dioxide BUN Creatinine Lactate Dehydrogenase Albumin Urine Creatinine 87.0 H 87.0 H 07/21/20 07/21/20 07/25/20 07:26 07:26 09:08 MCV 78 L 78 L MCH 26 L 27 L Plt Count 135 L Sodium Carbon Dioxide BUN Creatinine 0.4 L Lactate Dehydrogenase Albumin Urine Creatinine 07/25/20 07/26/20 07/26/20 21:24 05:41 18:53 MCV MCH 26 L 26 L Plt Count 136 L Sodium Carbon Dioxide BUN Creatinine 0.4 L Lactate Dehydrogenase Albumin Urine Creatinine 07/26/20 07/27/20 07/31/20 18:53 07:00 07:12 MCV 78 L MCH 26 L Plt Count Sodium 136 L Carbon Dioxide BUN 6 L Creatinine 0.4 L Lactate Dehydrogenase Albumin 3.4 L Urine Creatinine 102.4 H 07/31/20 08/03/20 08/07/20 07:12 16:17 08:02 MCV 78 L MCH 27 L 27 L Plt Count Sodium Carbon Dioxide BUN Creatinine 0.5 L Lactate Dehydrogenase Albumin Urine Creatinine 08/07/20 08:02 MCV MCH Plt Count Sodium Carbon Dioxide BUN Creatinine 0.5 L Lactate Dehydrogenase 197 H Albumin Urine Creatinine
[2020-08-09] MEDS: ASPIRIN EC 81 MG TAB PO SCH (10:59)
[2020-08-09] MEDS: PRENATAL VIT27-FE FUMARATE-FOLIC ACID VIT TAB PO SCH (10:59)
[2020-08-09] MEDS: NIFEdipine XL 60 MG TAB PO SCH (11:00)
[2020-08-10] MEDS: PRENATAL VIT27-FE FUMARATE-FOLIC ACID VIT TAB PO SCH (09:13)
[2020-08-10] MEDS: ASPIRIN EC 81 MG TAB PO SCH (09:13)
[2020-08-10] MEDS: NIFEdipine XL 60 MG TAB PO SCH (09:13)
--- NOTE | 2020-08-10 10:23 | Progress Note ---
Assessment and Plan Pt states she had good results from taking the Colace yesterday States she had 5 BMs. Pt is in good spirits. We did review C/S process. Pt reassured Dr Chanel will see her before surgery to review and answer all questions again. Continue POC. Dr Navarro's note reviewed. Consulted with Dr Mckee US on 08-07-20 has cephalic presentation Pt is mary for eval tomorrow Will confirm position possible unstable lie - Patient Problems (1) Chronic hypertension affecting Onset Date: ~07/21/20 Current Visit: Yes Status: Acute Plan to address problem: BP not taken consistently Order for Q4hr VS now in chart. BP 140-120/100-70 with some outliers 160-150/100 I was not aware of these pressures overnight. They were not recorderd @ rounds this AM. Pt denies VELAZQUEZ, blurred vision, chest pain. She voices excitment to see her daughter. Labetalol 300mg po TID and Nifedipine 60mg QD (2) Intrauterine growth restriction (IUGR) affecting care of mother, third trimester, single gestation Onset Date: ~07/16/20 Current Visit: Yes Status: Acute Plan to address problem: BPP 8/8, BEN 7.7, Doppler normal and persistent Pt reports good FM (3) Oligohydramnios in third trimester Onset Date: ~07/15/20 Current Visit: Yes Status: Acute Qualifiers: Fetus number: single or unspecified fetus Qualified Code(s): O41.03X0 - Oligohydramnios, third trimester, not applicable or unspecified Plan to address problem: Resolved 08/07/20 BEN 7.7 (4) Thrombocytopenia affecting Onset Date: ~07/30/20 Current Visit: Yes Status: Acute (5) 35 weeks gestation of Onset Date: ~08/04/20 Current Visit: Yes Status: Acute Subjective - Subjective Date of service: 08/10/20 (C/S [facility] 08-12-20) Principal diagnosis: IUP 36w2d wks (EDC 09-05-20); CHTN, IUGR, Gestational Thrombocytopenia Patient reports: new complaints (nausea), movement normal, no loss of fluid, no vaginal bleeding, no contractions, no other Objective - Vital Signs Vital Signs: Vital Signs - 12hr 08/10/20 08/10/20 08/10/20 01:42 01:43 01:44 Temperature 98.7 F Pulse Rate 80 75 Blood Pressure 157/105 145/97 08/10/20 08/10/20 08/10/20 06:30 06:39 07:02 Temperature Pulse Rate 81 81 78 Blood Pressure 137/95 137/95 142/100 08/10/20 08/10/20 08/10/20 07:03 07:28 09:13 Temperature Pulse Rate 78 82 81 Blood Pressure 167/101 139/100 134/85 - Exam Breasts: deferred Abdomen: Present: normal appearance, soft, other (pt had c/o constipation Tuesday and was given Colace. Pt reports 5 BMs yesterday). Absent: distention, tenderness Uterus: Present: normal FHR: auscultation normal, category 1 Uterine Contraction Pattern: Irregular (pt had rare ctx Pt states they were mild) Uterine Contraction Intensity: Mild Extremities: normal - Labs Labs: Abnormal Labs 07/14/20 07/14/20 07/14/20 13:46 13:46 13:46 MCV MCH 27 L Plt Count Sodium 135 L Carbon Dioxide 21 L BUN Creatinine 0.4 L 0.4 L Lactate Dehydrogenase Albumin 3.6 L Urine Creatinine 07/14/20 07/15/20 07/18/20 16:12 07:42 15:12 MCV MCH 27 L Plt Count Sodium Carbon Dioxide BUN Creatinine Lactate Dehydrogenase Albumin Urine Creatinine 87.0 H 87.0 H 07/21/20 07/21/20 07/25/20 07:26 07:26 09:08 MCV 78 L 78 L MCH 26 L 27 L Plt Count 135 L Sodium Carbon Dioxide BUN Creatinine 0.4 L Lactate Dehydrogenase Albumin Urine Creatinine 07/25/20 07/26/20 07/26/20 21:24 05:41 18:53 MCV MCH 26 L 26 L Plt Count 136 L Sodium Carbon Dioxide BUN Creatinine 0.4 L Lactate Dehydrogenase Albumin Urine Creatinine 07/26/20 07/27/20 07/31/20 18:53 07:00 07:12 MCV 78 L MCH 26 L Plt Count Sodium 136 L Carbon Dioxide BUN 6 L Creatinine 0.4 L Lactate Dehydrogenase Albumin 3.4 L Urine Creatinine 102.4 H 07/31/20 08/03/20 08/07/20 07:12 16:17 08:02 MCV 78 L MCH 27 L 27 L Plt Count Sodium Carbon Dioxide BUN Creatinine 0.5 L Lactate Dehydrogenase Albumin Urine Creatinine 08/07/20 08:02 MCV MCH Plt Count Sodium Carbon Dioxide BUN Creatinine 0.5 L Lactate Dehydrogenase 197 H Albumin Urine Creatinine
[2020-08-11] MEDS: ONDANSETRON 4 MG/2 ML INJ IV PRN (07:31)
--- NOTE | 2020-08-11 08:23 | Progress Note ---
Assessment and Plan A: 35 y.o. @ 36.3 wks, cHTN, IUGR, breech presentation. P: Monitor for distress, worsening maternal HTN. Twice weekly BPP /Doppler/4 quadrant BEN (scheduled for today). BEN on 08/07 7.7. NST q6hrs. Continue with Labetalol TID and Procardia daily. Titrate to maintain BP 120-160/80-105mmhg. CMP/CBC drawn today. Platelet count on 08/07 was 176. scheduled for 08/12. Continued breech presentation. - Patient Problems (1) Intrauterine growth restriction (IUGR) affecting care of mother, third trimester, single gestation Onset Date: ~07/16/20 Current Visit: Yes Status: Acute (2) Chronic hypertension affecting Onset Date: ~07/21/20 Current Visit: Yes Status: Acute (3) Thrombocytopenia affecting Onset Date: ~07/30/20 Current Visit: Yes Status: Acute (4) Oligohydramnios in third trimester Onset Date: ~07/15/20 Current Visit: Yes Status: Acute Qualifiers: Fetus number: single or unspecified fetus Qualified Code(s): O41.03X0 - Oligohydramnios, third trimester, not applicable or unspecified Subjective - Subjective Date of service: 08/11/20 (Pt with c/o some nausea this AM. ) Principal diagnosis: IUP 36w3d wks (EDC 09-05-20); CHTN, IUGR, Gestational Thrombocytopenia Patient reports: new complaints (nausea), movement normal, no loss of fluid, no vaginal bleeding, no contractions, no other Objective - Vital Signs Vital Signs: Vital Signs - 12hr 08/10/20 08/10/20 08/11/20 22:00 22:01 02:01 Temperature 98.7 F 98.5 F Pulse Rate 78 78 80 Respiratory 14 Rate Blood Pressure 155/99 155/99 142/97 Blood Pressure [Right] O2 Sat by Pulse Oximetry 08/11/20 08/11/20 08/11/20 06:02 06:03 06:05 Temperature 98.7 F Pulse Rate 80 80 Respiratory 14 Rate Blood Pressure 139/91 139/91 Blood Pressure [Right] O2 Sat by Pulse Oximetry 08/11/20 08/11/20 08/11/20 07:07 07:08 07:09 Temperature 98.6 F Pulse Rate 81 69 Respiratory 18 Rate Blood Pressure 178/108 Blood Pressure 127/78 [Right] O2 Sat by Pulse 98 90 81 L Oximetry 08/11/20 07:12 Temperature Pulse Rate 80 Respiratory Rate Blood Pressure 127/78 Blood Pressure [Right] O2 Sat by Pulse Oximetry - Exam Narrative Exam: Pt denies vaginal bleeding, LOF, ctxs, VELAZQUEZ, blurred vision, spots before her eyes, chest pain, shortness of breath, and upper abdominal pain. Blood pressure this AM 127/78. Had some elevated blood pressures, but continues to deny s/sx of pre eclampsia. Pt states that she is very anxious regarding delivery. she appears to be anxious this AM. Shaking her foot and legs as I was speaking with her. Was able to calm some of her fears regarding delivery. Will come back later this afternoon to speak with patient again regarding . Breasts: deferred Cardiovascular: Regular rate Lungs: Normal air movement Abdomen: Present: normal appearance, soft FHR: category 1 Uterine Contraction Monitor Mode: External Uterine Contraction Pattern: Absent - Labs Labs: Abnormal Labs 07/14/20 07/14/20 07/14/20 13:46 13:46 13:46 MCV MCH 27 L Plt Count Sodium 135 L Carbon Dioxide 21 L BUN Creatinine 0.4 L 0.4 L Lactate Dehydrogenase Albumin 3.6 L Urine Creatinine 07/14/20 07/15/20 07/18/20 16:12 07:42 15:12 MCV MCH 27 L Plt Count Sodium Carbon Dioxide BUN Creatinine Lactate Dehydrogenase Albumin Urine Creatinine 87.0 H 87.0 H 07/21/20 07/21/20 07/25/20 07:26 07:26 09:08 MCV 78 L 78 L MCH 26 L 27 L Plt Count 135 L Sodium Carbon Dioxide BUN Creatinine 0.4 L Lactate Dehydrogenase Albumin Urine Creatinine 07/25/20 07/26/20 07/26/20 21:24 05:41 18:53 MCV MCH 26 L 26 L Plt Count 136 L Sodium Carbon Dioxide BUN Creatinine 0.4 L Lactate Dehydrogenase Albumin Urine Creatinine 07/26/20 07/27/20 07/31/20 18:53 07:00 07:12 MCV 78 L MCH 26 L Plt Count Sodium 136 L Carbon Dioxide BUN 6 L Creatinine 0.4 L Lactate Dehydrogenase Albumin 3.4 L Urine Creatinine 102.4 H 07/31/20 08/03/20 08/07/20 07:12 16:17 08:02 MCV 78 L MCH 27 L 27 L Plt Count Sodium Carbon Dioxide BUN Creatinine 0.5 L Lactate Dehydrogenase Albumin Urine Creatinine 08/07/20 08:02 MCV MCH Plt Count Sodium Carbon Dioxide BUN Creatinine 0.5 L Lactate Dehydrogenase 197 H Albumin Urine Creatinine
[2020-08-11] MEDS: NIFEdipine XL 60 MG TAB PO SCH (10:01)
[2020-08-11] MEDS: PRENATAL VIT27-FE FUMARATE-FOLIC ACID VIT TAB PO SCH (10:01)
[2020-08-11] MEDS: ASPIRIN EC 81 MG TAB PO SCH (10:01)
[2020-08-11 10:16] LABS: Hematocrit 34.2 % (30.3-42.9); Hemoglobin 11.6 gm/dl (10.1-14.3); Mean Corpuscular HGB Conc 34 % (30-34); Mean Corpuscular Volume 79 fl (79-97); Platelet Count 168 K/mm3 (140-440); Red Blood Count 4.34 M/mm3 (3.65-5.03); Red Cell Distribution Width 14.6 % (13.2-15.2)
[2020-08-11 10:39] LABS: Bilirubin,Urine NEG (Negative); Blood,Urine NEG (Negative); Color,Urine Yellow (Yellow); Mucus,Urine FEW /HPF; Urobilinogen,Urine < 2.0 mg/dL (<2.0)
[2020-08-11 10:43] LABS: Alanine Aminotransferase 26 units/L (7-56); Uric Acid 4.7 mg/dL (3.5-7.6)
[2020-08-11 10:58] LABS: RBC,Urine < 1.0 /HPF (0.0-6.0)
--- NOTE | 2020-08-11 13:17 | Ultrasound Report ---
ULTRASOUND BIOPHYSICAL PROFILE ULTRASOUND OB LIMITED INDICATION: wellbeing TECHNIQUE: Transabdominal ultrasound imaging. COMPARISON: 08/07/2020 FINDINGS: breathing movement = 2 Gross body movement = 2 tone = 2 Qualitative amniotic fluid volume = 2 Total biophysical score = 8/8 Amniotic fluid index is 7.1 cm. Presentation is breech. heart rate is 136 beats per minute. IMPRESSION: biophysical profile equals 8/8. Signer Name: Abhijit Salas Jr, MD Signed: 08/11/2020 1:12 PM Workstation Name: [id number]
--- NOTE | 2020-08-11 13:17 | Ultrasound Report ---
ULTRASOUND BIOPHYSICAL PROFILE ULTRASOUND OB LIMITED INDICATION: wellbeing TECHNIQUE: Transabdominal ultrasound imaging. COMPARISON: 08/07/2020 FINDINGS: breathing movement = 2 Gross body movement = 2 tone = 2 Qualitative amniotic fluid volume = 2 Total biophysical score = 8/8 Amniotic fluid index is 7.1 cm. Presentation is breech. heart rate is 136 beats per minute. IMPRESSION: biophysical profile equals 8/8. Signer Name: Abhijit aSlas Jr, MD Signed: 08/11/2020 1:12 PM Workstation Name: [id number]
--- NOTE | 2020-08-11 13:18 | Ultrasound Report ---
ULTRASOUND OB VELOCIMETRY UMBILICAL ARTERY HISTORY: well being TECHNIQUE: Transabdominal ultrasound with color and spectral Doppler imaging. COMPARISON: 08/07/2020 FINDINGS: 3 segments of the umbilical cord were evaluated. heart rate measures 131 bpm. The spectral wave forms are normal and persistent. The S/D ratio average measures 3.24. The resistive index average measures 0.69. IMPRESSION: Umbilical cord Doppler within normal limits. Signer Name: Abhijit Salas Jr, MD Signed: 08/11/2020 1:14 PM Workstation Name: [id number]
--- NOTE | 2020-08-11 17:28 | Progress Note ---
Assessment and Plan A: 1. IUP at 36 3/7 weeks gestation s/p BMZ 07/08- 2.IUGR 08/04: EFW 5#1, 12%, AC 7%. 3.CHTN with exacerbation 24hr urine, 07/28 TP 144 stable on her current regimen of Labetalol 300 mg TID and Procardia 60 mg 4.decreased BEN reassuring testing 5. Breech Rec:: 1. Monitor for distress 2. NST q6hrs 3. Continue current antihypertensive regimen, titrate to maintain BP 120-160/80-105mmhg 4. CMP/CBC 1-2 times weekly 5. for delivery tomorrow , sooner if Cat III tracing Subjective - Subjective Principal diagnosis: IUP 36w3d wks (EDC 09-05-20); CHTN, IUGR, Gestational Thrombocytopenia Interval history: No complaints Denied LOF US reported BEN 7 BPP 12/28 Patient reports: new complaints (nausea), movement normal, no loss of fluid, no vaginal bleeding, no contractions, no other Objective - Vital Signs Vital Signs: Vital Signs - 12hr 08/11/20 08/11/20 08/11/20 06:02 06:03 06:05 Temperature 98.7 F Pulse Rate 80 80 Respiratory 14 Rate Blood Pressure 139/91 139/91 Blood Pressure [Left] Blood Pressure [Right] O2 Sat by Pulse Oximetry 08/11/20 08/11/20 08/11/20 07:07 07:08 07:09 Temperature 98.6 F Pulse Rate 81 69 Respiratory 18 Rate Blood Pressure 178/108 Blood Pressure [Left] Blood Pressure 127/78 [Right] O2 Sat by Pulse 98 90 81 L Oximetry 08/11/20 08/11/20 08/11/20 07:12 11:55 15:59 Temperature 99.0 F Pulse Rate 80 86 88 Respiratory 18 Rate Blood Pressure 127/78 153/85 129/85 Blood Pressure 153/85 [Left] Blood Pressure [Right] O2 Sat by Pulse Oximetry 08/11/20 08/11/20 16:01 16:04 Temperature 98.4 F Pulse Rate 88 Respiratory Rate Blood Pressure 129/85 Blood Pressure [Left] Blood Pressure [Right] O2 Sat by Pulse Oximetry - Exam Narrative Exam: NAD Abdomen: Present: normal appearance - Labs Labs: Abnormal Labs 07/14/20 07/14/2007/14/21 13:46 13:46 13:46 MCV MCH 27 L Plt Count Sodium 135 L Carbon Dioxide 21 L BUN Creatinine 0.4 L 0.4 L Lactate Dehydrogenase Albumin 3.6 L U Epithel Cells (Auto) Urine Creatinine 07/14/20 07/15/20 07/18/20 16:12 07:42 15:12 MCV MCH 27 L Plt Count Sodium Carbon Dioxide BUN Creatinine Lactate Dehydrogenase Albumin U Epithel Cells (Auto) Urine Creatinine 87.0 H 87.0 H 07/21/20 07/21/20 07/25/20 07:26 07:26 09:08 MCV 78 L 78 L MCH 26 L 27 L Plt Count 135 L Sodium Carbon Dioxide BUN Creatinine 0.4 L Lactate Dehydrogenase Albumin U Epithel Cells (Auto) Urine Creatinine 07/25/20 07/26/20 07/26/20 21:24 05:41 18:53 MCV MCH 26 L 26 L Plt Count 136 L Sodium Carbon Dioxide BUN Creatinine 0.4 L Lactate Dehydrogenase Albumin U Epithel Cells (Auto) Urine Creatinine 07/26/20 07/27/20 07/31/20 18:53 07:00 07:12 MCV 78 L MCH 26 L Plt Count Sodium 136 L Carbon Dioxide BUN 6 L Creatinine 0.4 L Lactate Dehydrogenase Albumin 3.4 L U Epithel Cells (Auto) Urine Creatinine 102.4 H 07/31/20 08/03/20 08/07/20 07:12 16:17 08:02 MCV 78 L MCH 27 L 27 L Plt Count Sodium Carbon Dioxide BUN Creatinine 0.5 L Lactate Dehydrogenase Albumin U Epithel Cells (Auto) Urine Creatinine 08/07/20 08/11/20 08/11/20 08:02 09:10 09:10 MCV MCH 27 L Plt Count Sodium Carbon Dioxide BUN Creatinine 0.5 L 0.5 L Lactate Dehydrogenase 197 H 196 H Albumin U Epithel Cells (Auto) Urine Creatinine 08/11/20 10:09 MCV MCH Plt Count Sodium Carbon Dioxide BUN Creatinine Lactate Dehydrogenase Albumin U Epithel Cells (Auto) 18.0 H Urine Creatinine Laboratory Results - last 24 hr 08/11/20 08/11/20 08/11/20 09:10 09:10 09:10 WBC 4.9 RBC 4.34 Hgb 11.6 Hct 34.2 MCV 79 MCH 27 L MCHC 34 RDW 14.6 Plt Count 168 Creatinine 0.5 L Estimated GFR > 60 Uric Acid 4.7 AST 31 ALT 26 Lactate Dehydrogenase 196 H Urine Color Urine Turbidity Urine pH Ur Specific [place] Urine Protein Urine Glucose (UA) Urine Ketones Urine Blood Urine Nitrite Urine Bilirubin Urine Urobilinogen Ur Leukocyte Esterase Urine WBC (Auto) Urine RBC (Auto) U Epithel Cells (Auto) Urine Mucus Blood Type O POSITIVE Antibody Screen Negative 08/11/20 10:09 WBC RBC Hgb Hct MCV MCH MCHC RDW Plt Count Creatinine Estimated GFR Uric Acid AST ALT Lactate Dehydrogenase Urine Color Yellow Urine Turbidity Slightly-cloudy Urine pH 6.0 Ur Specific [place] 1.016 Urine Protein 100 mg/dl Urine Glucose (UA) Neg Urine Ketones Neg Urine Blood Neg Urine Nitrite Neg Urine Bilirubin Neg Urine Urobilinogen < 2.0 Ur Leukocyte Esterase Neg Urine WBC (Auto) 1.0 Urine RBC (Auto) < 1.0 U Epithel Cells (Auto) 18.0 H Urine Mucus Few Blood Type Antibody Screen - Results US- obstetric: report reviewed
[2020-08-12] MEDS ORDERED: FAMOTIDINE 20 MG/2 ML INJ IV SCH (06:00)
[2020-08-12] MEDS ORDERED: METOCLOPRAMIDE 10 MG/2 ML INJ IV SCH ×2 (06:00→14:00)
--- NOTE | 2020-08-12 07:31 | Progress Note ---
Assessment and Plan This is a 35-year-old female G3, P0 who was admitted July 14, 2020 evaluation and management of oligohydramnios, breech presentation, exacerbation of chronic hypertension and IUGR. Her hospital course has been complicated by intermittent episodes of oligohydramnios and elevated blood pressures. Blood pressures became controlled with labetalol 300 mg 3 times daily and Procardia 60 mg XL daily. Also during hospital course she had occasional episodes of mild thrombocytopenia. She had multiple 24-hour urines that were within normal range. She did receive steroids July 08 and at [facility] prior to transfer to this facility. Fortunately during this hospitalization growth and BEN improved. Due to her diagnosis of chronic hypertension with exacerbation and intermittent oligohydramnios, maternal- medicine recommended delivery between 34 weeks and 37 and 6 weeks. However over the last several days blood pressures have been elevated and her last urinalysis revealed 100 milligrams per deciliter of protein. Current findings were discussed with patient as well as [facility] recommendations. Options for delivery along with risk and benefits were explained. Patient desires to proceed with delivery due to breech presentation. . Risk associated with delivery were discussed, including but not limited to, bleeding that may require blood transfusion, infection that may be life threatening, injury to adjacent organs specifically bowel or bladder that may require further surgeries, or major vascular injury. She was also informed that when she has had a delivery she may require repeat deliveries for all subsequent pregnancies. Questions were encouraged and answered, consents were reviewed and signed. Patient voiced understanding and desires to proceed with delivery. She declines sterilization at this time - Patient Problems (1) 36 weeks gestation of Current Visit: Yes Status: Acute (2) Breech presentation Current Visit: Yes Status: Acute Qualifiers: Fetus number: single or unspecified fetus Qualified Code(s): O32.1XX0 - Maternal care for breech presentation, not applicable or unspecified (3) Chronic hypertension affecting Onset Date: ~07/21/20 Current Visit: Yes Status: Acute (4) Intrauterine growth restriction (IUGR) affecting care of mother, third trimester, single gestation Onset Date: ~07/16/20 Current Visit: Yes Status: Acute (5) Oligohydramnios in third trimester Onset Date: ~07/15/20 Current Visit: Yes Status: Acute Qualifiers: Fetus number: single or unspecified fetus Qualified Code(s): O41.03X0 - Oligohydramnios, third trimester, not applicable or unspecified Subjective - Subjective Principal diagnosis: IUP 36w4d wks (EDC 09-05-20); CHTN, IUGR, Gestational Thrombocytopenia Patient reports: new complaints (nausea), movement normal, no loss of fluid, no vaginal bleeding, no contractions, no other Objective - Vital Signs Vital Signs: Vital Signs - 12hr 08/11/20 08/11/20 08/12/20 22:08 22:09 05:54 Pulse Rate 78 78 79 Blood Pressure 128/77 128/77 166/93 08/12/20 08/12/20 05:56 07:14 Pulse Rate 79 83 Blood Pressure 166/93 134/88 - Exam Breasts: deferred Lungs: Normal air movement FHR: category 1 - Labs Labs: Abnormal Labs 07/14/20 07/14/20 07/14/20 13:46 13:46 13:46 MCV MCH 27 L Plt Count Sodium 135 L Carbon Dioxide 21 L BUN Creatinine 0.4 L 0.4 L Lactate Dehydrogenase Albumin 3.6 L U Epithel Cells (Auto) Urine Creatinine 07/14/20 07/15/20 07/18/20 16:12 07:42 15:12 MCV MCH 27 L Plt Count Sodium Carbon Dioxide BUN Creatinine Lactate Dehydrogenase Albumin U Epithel Cells (Auto) Urine Creatinine 87.0 H 87.0 H 07/21/20 07/21/20 07/25/20 07:26 07:26 09:08 MCV 78 L 78 L MCH 26 L 27 L Plt Count 135 L Sodium Carbon Dioxide BUN Creatinine 0.4 L Lactate Dehydrogenase Albumin U Epithel Cells (Auto) Urine Creatinine 07/25/20 07/26/20 07/26/20 21:24 05:41 18:53 MCV MCH 26 L 26 L Plt Count 136 L Sodium Carbon Dioxide BUN Creatinine 0.4 L Lactate Dehydrogenase Albumin U Epithel Cells (Auto) Urine Creatinine 07/26/20 07/27/20 07/31/20 18:53 07:00 07:12 MCV 78 L MCH 26 L Plt Count Sodium 136 L Carbon Dioxide BUN 6 L Creatinine 0.4 L Lactate Dehydrogenase Albumin 3.4 L U Epithel Cells (Auto) Urine Creatinine 102.4 H 07/31/20 08/03/20 08/07/20 07:12 16:17 08:02 MCV 78 L MCH 27 L 27 L Plt Count Sodium Carbon Dioxide BUN Creatinine 0.5 L Lactate Dehydrogenase Albumin U Epithel Cells (Auto) Urine Creatinine 08/07/20 08/11/20 08/11/20 08:02 09:10 09:10 MCV MCH 27 L Plt Count Sodium Carbon Dioxide BUN Creatinine 0.5 L 0.5 L Lactate Dehydrogenase 197 H 196 H Albumin U Epithel Cells (Auto) Urine Creatinine 08/11/20 10:09 MCV MCH Plt Count Sodium Carbon Dioxide BUN Creatinine Lactate Dehydrogenase Albumin U Epithel Cells (Auto) 18.0 H Urine Creatinine Laboratory Results - last 24 hr 08/11/20 08/11/20 08/11/20 09:10 09:10 09:10 WBC 4.9 RBC 4.34 Hgb 11.6 Hct 34.2 MCV 79 MCH 27 L MCHC 34 RDW 14.6 Plt Count 168 Creatinine 0.5 L Estimated GFR > 60 Uric Acid 4.7 AST 31 ALT 26 Lactate Dehydrogenase 196 H Urine Color Urine Turbidity Urine pH Ur Specific [place] Urine Protein Urine Glucose (UA) Urine Ketones Urine Blood Urine Nitrite Urine Bilirubin Urine Urobilinogen Ur Leukocyte Esterase Urine WBC (Auto) Urine RBC (Auto) U Epithel Cells (Auto) Urine Mucus Blood Type O POSITIVE Antibody Screen Negative 08/11/20 10:09 WBC RBC Hgb Hct MCV MCH MCHC RDW Plt Count Creatinine Estimated GFR Uric Acid AST ALT Lactate Dehydrogenase Urine Color Yellow Urine Turbidity Slightly-cloudy Urine pH 6.0 Ur Specific [place] 1.016 Urine Protein 100 mg/dl Urine Glucose (UA) Neg Urine Ketones Neg Urine Blood Neg Urine Nitrite Neg Urine Bilirubin Neg Urine Urobilinogen < 2.0 Ur Leukocyte Esterase Neg Urine WBC (Auto) 1.0 Urine RBC (Auto) < 1.0 U Epithel Cells (Auto) 18.0 H Urine Mucus Few Blood Type Antibody Screen
[2020-08-12] MEDS ORDERED: OXYTOCIN DRIP 30 UNITS/500 ML BAG IV SCH ×2 (08:00→17:00)
[2020-08-12] MEDS ORDERED: LACTATED RINGERS 1,000 ML IV SCH (08:00)
--- NOTE | 2020-08-12 09:45 | Anesthesia Day of Surgery ---
Anesthesia Day of Surgery - Day of Surgery Patient Examined: Yes Patient H&P Reviewed: Yes Patient is NPO: Yes Beta Blockers: No Cardiac Clearance: No Pulmonary Clearance: No Juan José's Test: N/A
[2020-08-12] MEDS ORDERED: NALOXONE 0.4 MG/1 ML INJ IV PRN ×2 (10:00→16:37)
[2020-08-12] MEDS ORDERED: diphenhydrAMINE 50 MG/ML VIAL IV PRN (10:00)
[2020-08-12] MEDS ORDERED: HYDROmorphone 1 MG/1 ML INJ IV PRN (10:00)
[2020-08-12] MEDS ORDERED: NalbUPHINE 10 MG/1 ML INJ IV PRN (10:00)
[2020-08-12] MEDS ORDERED: PROMETHAZINE 25 MG RECT SUPP PR PRN (10:00)
[2020-08-12] MEDS ORDERED: PROMETHAZINE 25 MG TAB PO PRN (10:00)
--- NOTE | 2020-08-12 10:01 | Anesthesia Consultation ---
Anesthesia Consult and Med Hx Date of service: 08/12/20 - Airway Anesthetic Teeth Evaluation: Good ROM Head & Neck: Adequate Mental/Hyoid Distance: Adequate Mallampati Class: Class II Intubation Access Assessment: Probably Good - Pulmonary Exam CTA: Yes - Cardiac Exam Cardiac Exam: RRR - Pre-Operative Health Status ASA Pre-Surgery Classification: ASA2 Proposed Anesthetic Plan: Spinal - Pulmonary Hx Smoking: No Hx Asthma: No COPD: No Hx Pneumonia: No Hx Sleep Apnea: No - Cardiovascular System Hx Hypertension: Yes ([id number]) Hx Heart Attack/AMI: No Hx Angina: No - Central Nervous System Hx Seizures: No Hx Psychiatric Problems: No - Gastrointestinal Hx Gastroesophageal Reflux Disease: No - Endocrine Hx Renal Disease: No Hx End Stage Renal Disease: No Hx Insulin Dependent Diabetes: No Hx Non-Insulin Dependent Diabetes: No Hx Hypothyroidism: No Hx Hyperthyroidism: No - Hematic Hx Anemia: No Hx Sickle Cell Disease: No - Other Systems Hx Alcohol Use: No Hx Obesity: Yes
[2020-08-12] MEDS: ASPIRIN EC 81 MG TAB PO SCH (10:03)
[2020-08-12] MEDS: PRENATAL VIT27-FE FUMARATE-FOLIC ACID VIT TAB PO SCH (10:03)
[2020-08-12] MEDS: NIFEdipine XL 60 MG TAB PO SCH (10:04)
[2020-08-12] MEDS ORDERED: ceFAZolin/Water 2 GM/20 ML 2 GM/20 ML SYRINGE IV NR (12:00)
[2020-08-12] MEDS ORDERED: BICITRA ORAL LIQD 30ML PO SCH (12:00)
[2020-08-12] MEDS ORDERED: ONDANSETRON 4 MG/2 ML INJ ONE (15:30)
[2020-08-12] MEDS ORDERED: PHENYLEPHRINE/NS 1,000 MCG/10 ML SYRINGE (OR USE) IV ONE (15:30)
[2020-08-12] MEDS ORDERED: ePHEDrine SULFATE 50 MG/1 ML INJ ONE (15:30)
[2020-08-12] MEDS ORDERED: SODIUM CHLORIDE 0.9% IRR 1,500 ML BOTTLE IR ONE (15:45)
[2020-08-12] MEDS ORDERED: WATER FOR IRRIG STERILE 1,500 ML BOTTLE IR ONE (15:45)
--- NOTE | 2020-08-12 16:04 | Progress Note ---
Spinal Anesthesia Block - Spinal Anesthesia Block Start Time: 15:30 Stop Time: 15:45 Performed by:: TEAGAN HOLGUIN (Logan SRNA) Procedure: Spinal anesthesia block is being performed for [C/S]. H&P, labs have been reviewed. Patient's questions and concerns have been answered. Informed consent has been performed. Timeout has was performed. Patient in sitting position on side of bed. Sterile prep and drape was performed. 3 mL 1% lidocaine skin wheal at L [3]-L [4]. Needle introducer advanced. 25-gauge spinal needle advanced, student unsuccessful. Needle introducer advanced at L3- L4. 25-gauge spinal needle advanced, [+] CSF [-] blood. [Marcaine 10mg, Precedex 5mcg, and Duramorph 0.2mg] Spinal dose was given. All needles removed. Patient tolerated procedure well.
[2020-08-12] MEDS ORDERED: hydrALAZINE 20 MG/1 ML INJ IV PRN (16:37)
[2020-08-12] MEDS ORDERED: WITCH HAZEL/ GLYCERIN PAD TP PRN (16:37)
[2020-08-12] MEDS ORDERED: MORPHINE 4 MG/1 ML INJ IV PRN (16:37)
[2020-08-12] MEDS ORDERED: LANOLIN/ZINC/DIMETHICONE (LANSINOH) 7 GM TP PRN (16:37)
[2020-08-12] MEDS ORDERED: MORPHINE 2 MG/1 ML INJ IV PRN (16:37)
[2020-08-12] MEDS ORDERED: MAGNESIUM SULFATE 40GM/1000ML 40 GM/1,000 ML BAG IV ONE ×2 (16:37→16:50)
[2020-08-12] MEDS ORDERED: MAGNESIUM SULFATE 4 GM/100 ML BAG IV ONE (16:50)
[2020-08-12] MEDS ORDERED: MAGNESIUM SULFATE 4 GM/100 ML BAG IV SCH (17:00)
--- NOTE | 2020-08-12 17:08 | Operative Report ---
Operative Report Operative Report: Date of operation: 08/12/2020 Pre-operative diagnosis: 1. 36 weeks and 4 days gestational age 2. Chronic hypertension with superimposed preeclampsia 3. IUGR 4. BMI 39 kg/m 5. Intermittent oligohydramnios 6. Breech presentation Post-operative diagnosis: 1. 36 weeks and 4 days gestational age 2. Chronic hypertension with superimposed preeclampsia 3. IUGR 4. BMI 39 kg/m 5. Intermittent oligohydramnios 6. Breech presentation Procedure name(s): Primary low transverse uterine incision Surgeon: Leeann Chanel MD Servicing Rep: Jami Mckee MD Anesthesia: Combined spinal/epidural EBL: 550 mL Urine output: 50 mL of clear urine out at the end of the procedure Fluids: 1200 mL Findings: Liveborn female weight 4 Lbs. 15 oz. Apgars of 8 and 9 at one and 5 minutes Indications: [] Procedure: Patient was taking to the operating room. Combined spinal epidural anesthesia was placed. Patient was then prepped and draped in the usual sterile fashion Timeout was performed. Once an appropriate level of anesthesia was noted, a Pfannenstiel incision was made and extended the fascia which was incised and extended lateral direction. The overlying fascia was sharply dissected away from the underlying rectus muscles in the superior inferior direction. The midline was entered bluntly. Bladder blade was placed. Vesicouterine fold was incised with blunt dissection bladder flap was created. A transverse incision was made in the lower uterine segment and extended s uperolateral direction with finger fractionation. Clear fluid was noted. Infant was delivered from the rosario breech position, with spontaneous cry and excellent tone. Mouth and nose bulb suctioned. Cord was doubly clamped and cut infant was given to the resuscitation team present. Placenta was delivered. The uterus was exteriorized and cleaned of any further placental tissue and products of conception. Uterine incision was approximated using 0 Vicryl in a running interlocking stitch followed by further suture of 0 Vicryl in imbricating fashion. When hemostasis was noted the uterus was allowed back in the pelvic cavity. Pelvis was irrigated with warm normal saline. Once hemostasis was noted the rectus muscles were approximated using 0 Vicryl interrupted simple stitches 3. Once hemostasis was noted the fascia was approximated using 0 Vicryl simple running stitch. The incision was irrigated with warm saline, once hemostasis as noted, the subcuticular adipose tissue was reapproximated using 3-0 Vicryl in a simple running fashion. Skin was approximated using 4-0 Vicryl on a James needle in a subcuticular manner. Counts were correct x3. Patient tolerated the procedure well, she was taken to recovery room in stable condition.
[2020-08-12] MEDS: MAGNESIUM SULFATE 40GM/1000ML 40 GM/1,000 ML BAG IV SCH (17:38)
[2020-08-12] MEDS: ONDANSETRON 4 MG/2 ML INJ IV PRN (18:25)
[2020-08-12] MEDS ORDERED: ACETAMINOPHEN 325 MG TAB PO SCH (20:30)
[2020-08-12] MEDS: ceFAZolin/NS 1 GM/50 ML 1 GM/50 ML BAG IV SCH (21:44)
[2020-08-12] MEDS: LACTATED RINGERS 1,000 ML IV SCH (21:46)
[2020-08-13] MEDS ORDERED: KETOROLAC 30 MG/1 ML INJ IV SCH
[2020-08-13] MEDS: ceFAZolin/NS 1 GM/50 ML 1 GM/50 ML BAG IV SCH (05:56)
[2020-08-13] MEDS ORDERED: DIPHtheria,PERTUSSIS(ACELL),TETANUS VACCINE/PF 0.5 ML VIAL IM ONE (06:00)
[2020-08-13 06:21] LABS: Hematocrit 28.4 % (30.3-42.9); Hemoglobin 9.6 gm/dl (10.1-14.3)
--- NOTE | 2020-08-13 07:54 | Progress Note ---
Assessment and Plan Patient resting w/o complaints. I&O adequate, no VELAZQUEZ/epigastric pain or visual changes. dressing D&I. H&H 9.6/28.4 - asymptomatic anemia d/t acute blood loss. b/p's 120-160/73-103. 0600 mag level 5.7. Will continue to monitor closely. - Patient Problems (1) delivery delivered Current Visit: Yes Status: Acute Plan to address problem: postop pathway Advance diet and activity as tolerated (2) Pre-eclampsia superimposed on chronic hypertension Current Visit: Yes Status: Acute Plan to address problem: continue Labetalol 300mg TID and Procardia 60mg QD Magnesium sulfate x 24hrs post delivery close monitoring for worsening signs of pre-e Subjective - Subjective Date of service: 08/13/20 Principal diagnosis: postop day #1 s/p primary c/s; CHTN w/ superimposed pre-e Patient reports: appetite normal, pain well controlled, no flatus, no nauseated : bottle feeding Objective - Vital Signs Latest vital signs: Vital Signs Temp Pulse Resp BP BP Pulse Ox 08/13/20 07:37 74 151/96 08/13/20 07:07 81 160/103 08/13/20 06:45 78 130/87 08/13/20 06:06 83 127/73 08/13/20 06:02 86 131/75 08/13/20 06:01 86 131/75 08/13/20 05:59 86 131/75 08/13/20 00:37 85 157/103 08/13/20 00:06 81 143/97 08/12/20 23:36 82 144/88 08/12/20 23:21 88 165/102 08/12/20 23:06 83 143/97 08/12/20 22:06 78 139/91 08/12/20 21:47 72 135/96 08/12/20 21:45 72 135/96 08/12/20 21:36 79 134/96 08/12/20 21:06 75 139/93 08/12/20 20:36 74 128/85 08/12/20 20:08 78 139/90 08/12/20 19:37 67 144/93 08/12/20 19:06 68 127/86 08/12/20 18:36 71 129/88 08/12/20 18:06 67 122/82 08/12/20 17:40 97.7 F 70 18 130/86 98 08/12/20 17:35 66 16 151/48 99 08/12/20 17:20 75 16 128/89 99 08/12/20 17:05 75 16 128/78 100 08/12/20 16:50 76 17 120/81 100 08/12/20 16:45 77 18 127/80 100 08/12/20 16:43 97.9 F 77 18 124/84 99 08/12/20 15:08 81 143/102 08/12/20 14:38 90 163/107 08/12/20 14:07 87 153/99 08/12/20 14:05 92 H 153/109 08/12/20 14:04 92 H 153/109 08/12/20 14:02 87 139/102 08/12/20 14:01 92 H 153/10 08/12/20 12:04 98.7 F 76 18 135/93 135/93 08/12/20 07:55 85 138/94 08/12/20 07:53 83 99 Intake and Output 08/12/20 08/12/20 08/13/20 15:59 23:59 07:59 Intake Total 1450 Output Total 150 550 Balance 1300 -550 Intake: IV 1450 ANCEF/NS 1 GM/50 ML 1 gm 50 In 50 ml @ 100 mls/hr IV Q8H [facility] Rx#:[id number] Output: Urine 150 550 Void 550 Other: Total, Output Amount 400 Estimated Blood Loss 550 - Exam Breasts: Present: normal Cardiovascular: Present: Regular rate Lungs: Present: Normal air movement Abdomen: Present: normal appearance, soft, distention. Absent: tenderness, guarding Vulva: both: normal Uterus: Present: normal, firm, fundal height above umbilicus Extremities: Present: normal Deep Tendon Reflex Grade: Normal +2 Incision: Present: normal, dry, dressed - Labs Labs: Abnormal lab results 08/12/20 08/13/20 08/13/20 Range/Units 19:31 00:24 06:09 Hgb 9.6 L (10.1-14.3) gm/dl Hct 28.4 L (30.3-42.9) % Magnesium 4.40 H 5.20 H (1.7-2.3) mg/dL 08/13/20 Range/Units 06:09 Hgb (10.1-14.3) gm/dl Hct (30.3-42.9) % Magnesium 5.70 H (1.7-2.3) mg/dL
[2020-08-13] MEDS ORDERED: SIMETHICONE 80 MG CHEW TAB PO PRN (08:30)
[2020-08-13] MEDS: NIFEdipine XL 60 MG TAB PO SCH (10:14)
[2020-08-13] MEDS: SIMETHICONE 80 MG CHEW TAB PO PRN ×2 (10:14→22:31)
[2020-08-13] MEDS: PRENATAL VIT27-FE FUMARATE-FOLIC ACID VIT TAB PO SCH (10:14)
[2020-08-13] MEDS: LACTATED RINGERS 1,000 ML IV SCH (10:16)
[2020-08-13] MEDS: MAGNESIUM SULFATE 40GM/1000ML 40 GM/1,000 ML BAG IV SCH (10:24)
--- NOTE | 2020-08-13 11:46 | Post Anesthesia Evaluation ---
- Post Anesthesia Evaluation Patient Participated: Yes Airway Patent: Yes Stable Respiratory Function: Yes Nausea/Vomiting: No Temp > 96.8F: Yes Pain Manageable: Yes Adequeate Hydration: Yes Anesthesia Complications: No Block Receding Appropriately: Yes Patient on Ventilator: No
[2020-08-13] MEDS ORDERED: ACETAMINOPHEN 500 MG TAB PO PRN (13:00)
[2020-08-14] MEDS: oxyCODONE /ACETAMINOPHEN 5-325MG TAB PO PRN ×2 (03:55→10:40)
--- NOTE | 2020-08-14 07:53 | Discharge Summary ---
Providers - Providers Date of Admission: 07/14/20 13:08 Date of discharge: 08/14/20 (desires d/c) Attending physician: CLEM LYNCH 08/12/20 16:37 Consult to [employer] [CONS] Routine Reason For Exam: Primary care physician: RN MEDICARE Hospitalization Reason for admission: IUP - , section (breech), other (IUGR [place]) Delivery: Procedure: primary low transverse Episiotomy: none Laceration: none Incision: normal, dry, intact Other procedures: none complications: none Discharge diagnosis: delivery [place] baby: female Hospital course: Pt admitted for several weeks due to CHTN, IUGR, [place], Breech presentation Uncomplicated section Pt and SO awake caring for NB. No c/o voiced. Pt ambulating w/o difficulty. BP 130-120/90-70 Denies VELAZQUEZ, blurred vision, chest pain. Incision D&I Doing well s/p section. P: d/c today with instructions RTO 1 week for BP check and postop visit. RX on chart and Labetalol called to [facility]. Condition at discharge: Good Disposition: DC-01 TO HOME OR SELFCARE - Discharge Diagnoses (1) Chronic hypertension affecting Status: Acute Comment: Will continue Labetalol 300mg TID RTO Tuesday for a BP check Call with any s/sx of preE (2) delivery delivered Status: Acute Comment: RTO 1 week postop visit Plan - Discharge Medications Prescriptions: Ibuprofen [Motrin 800 MG tab] 800 mg PO TID PRN #30 tablet PRN Reason: Pain oxyCODONE /ACETAMINOPHEN [Percocet 5/325 mg] 1 - 2 tab PO Q4HR PRN #14 tablet PRN Reason: Pain - Provider Discharge Summary Activity: routine, no sex for 6 weeks, no heavy lifting 4 weeks, no strenuous exercise Diet: other (limit salt intake) Instructions: routine Additional instructions: [] Smoking cessation referral if applicable(refer to patient education folder for contact #) [] Refer to [facility] Booklet Call your doctor immediately for: * Fever > 100.5 * Heavy vaginal bleeding ( >1 pad per hour) * Severe persistent headache * Shortness of breath * Reddened, hot, painful area to leg or breast * Drainage or odor from incision. * Keep incision clean and dry at all times and follow doctor's instructions regarding bathing/showering - Follow up plan Follow up: PRIMARY CARE,MD [Primary Care Provider] - 7 Days MAGNO DECKER CNM [Advanced Practice Nurse] - 08/19/20 10:00 am (Congratulations! Please keep your appointment as scheduled 08-19-20 @ 10:00AM [place] office. Take medications as prescribed. Call with headache,not relieved with Tylenol, blurred vision, chest pain. Call with any concerns.)
[2020-08-14] MEDS: PRENATAL VIT27-FE FUMARATE-FOLIC ACID VIT TAB PO SCH (10:40)
[2020-08-14] MEDS: NIFEdipine XL 60 MG TAB PO SCH (10:40)
[2020-08-14 17:58] VITALS: BP 113/75
== END 2020-08-14 17:50 | disposition home or self-care (01) | DRG 765 ==
LOC: TRG 10:40 → APU 10:44 → TRG 13:07 → LD 13:08 → OB 08-13 17:58
PROVIDERS: ADMIT Obstetrics & Gynecology; ATTEND Obstetrics & Gynecology
PROC: 10D00Z1 Extraction of Products of Conception, Low, Open Approach (ICD-10-PCS; principal; 2020-08-12)
PROC: 3E0234Z Introduction of Serum, Toxoid and Vaccine into Muscle, Percutaneous Approach (ICD-10-PCS; 2020-08-13)
DX: O32.1XX0 Maternal care for breech presentation, not applicable or unspecified (principal); O60.14X0 Preterm labor third trimester with preterm delivery third trimester, not applicable or unspecified; O41.03X0 Oligohydramnios, third trimester, not applicable or unspecified; O10.92 Unspecified pre-existing hypertension complicating childbirth; O99.12 Other diseases of the blood and blood-forming organs and certain disorders involving the immune mechanism complicating childbirth; D69.6 Thrombocytopenia, unspecified; O32.9XX0 Maternal care for malpresentation of fetus, unspecified, not applicable or unspecified; O36.5930 Maternal care for other known or suspected poor fetal growth, third trimester, not applicable or unspecified; Z20.822 Contact with and (suspected) exposure to COVID-19; O99.02 Anemia complicating childbirth; D62 Acute posthemorrhagic anemia; Z83.3 Family history of diabetes mellitus; Z82.49 Family history of ischemic heart disease and other diseases of the circulatory system; Z80.9 Family history of malignant neoplasm, unspecified; Z79.82 Long term (current) use of aspirin; Z37.0 Single live birth; Z79.899 Other long term (current) drug therapy; Z3A.32 32 weeks gestation of pregnancy
CPT/HCPCS: 36415; 76815; 76816; 76819; 76820; 80053; 81001; 82565; 82570; 82575; 83615; 83735; 84156; 84450; 84460; 84550; 85014; 85018; 85027; 86592; 86850; 86900; 86901; G0378; J0690; J2370; J2405; J2765; J3475; J7120; Q0162; U0003